=== PATIENT | male | born 1935 | race Caucasian/White ===

== ENCOUNTER → 2016-07-31 | Outpatient (CLI) | payer MEDICARE ==
[~2016-07-31] MED LIST: ACET325T PO; AMIO200T PO; ASPI1TAB69 PO; ASPI81TA11 PO; ATOR10TA PO; ATOR10TA15 PO; CARV25TA PO; CEPH-460 PO; CO Q100C9 PO; COUM3TAB PO; COUM4TAB PO; DIOV40TA PO; DOCU1CAP39 PO; FISH100020 PO; FURO1TAB60 PO; FURO1TAB93 PO; FURO40TA PO; LISI-366 PO; MECL-62 PO; MECL1TAB42 PO; MULT1TAB PO; WARF-20 PO; WARF3TAB PO
[2016-07-31 15:20] LABS: INTERNATIONAL NORMALIZED RATIO 2.6 RATIO
== END ==
LOC: CLAB 14:50
DX: I48.91 Unspecified atrial fibrillation (principal)
CPT/HCPCS: 36415; 85610

== ENCOUNTER → 2016-08-30 | Outpatient (CLI) | payer MEDICARE ==
[2016-08-30 10:07] LABS: INTERNATIONAL NORMALIZED RATIO 2.4 RATIO; PROTHROMBIN TIME - PATIENT 27.9 SEC (9.8-11.6)
== END ==
LOC: CLAB 09:38
DX: I48.91 Unspecified atrial fibrillation (principal)
CPT/HCPCS: 36415; 85610

== ENCOUNTER → 2016-09-22 | Outpatient (CLI) | payer MEDICARE ==
[2016-09-22 13:16] LABS: INTERNATIONAL NORMALIZED RATIO 2.7 RATIO; PROTHROMBIN TIME - PATIENT 31.2 SEC (9.8-11.6)
== END ==
LOC: CLAB 12:41
DX: I48.91 Unspecified atrial fibrillation (principal)
CPT/HCPCS: 36415; 85610

== ENCOUNTER → 2016-10-17 | Outpatient (CLI) | payer MEDICARE ==
[2016-10-17 15:45] LABS: INTERNATIONAL NORMALIZED RATIO 2.5 RATIO; PROTHROMBIN TIME - PATIENT 28.3 SEC (9.8-11.6)
== END ==
LOC: CLAB 15:00
DX: I48.91 Unspecified atrial fibrillation (principal)
CPT/HCPCS: 36415; 85610

== ENCOUNTER 2016-11-08 09:10 | Inpatient (IN) | payer MEDICARE ==
[2016-11-08] VITALS (17 sets, daily range): BP systolic 65–122; BP diastolic 47–74; PULSE 40–162; RESP 12–21; TEMP 96.4–98.1; O2SAT 19–100
[~2016-11-08 09:10] MED LIST changes: -ACET325T PO; -AMIO200T PO; -ASPI1TAB69 PO; -ATOR10TA15 PO; -CEPH-460 PO; -COUM3TAB PO; -COUM4TAB PO; -DIOV40TA PO; -DOCU1CAP39 PO; -FURO1TAB60 PO; -FURO40TA PO; -MECL-62 PO; -MECL1TAB42 PO
--- NOTE | 2016-11-08 09:39 | PD ---
HPI Chief Complaint: Cardiac Complaint Time Seen by Provider: 09:31 Travel History International Travel<30 days: No Contact w/Intl Traveler<30days: No Traveled to known affect area: No History of Present Illness HPI 81-year-old male with history of atrial fibrillation, has a pacemaker with securities dealer in [place], follows up with Dr. Lima locally, presents to the ER today because of chest pressure and shortness of breath, nausea, abdominal bloating, going on for several days. He states that it had gone away earlier and has come back today. He denies any fevers, vomiting, or other symptoms. Modifying Factors: None Associated Signs & Symptoms: Chest discomfort, nausea, abdominal bloating, shortness of breath intermittently Risk Factors: A. fib, pacemaker PFSH Past Medical History Cancer: No Cardiovascular Problems: Yes (ATRIAL FIBRILLATION, ENLARGED LEFT VENTRICLE, VALVE PROLAPSE) Diabetes: No Endocrine: No Genitourinary: No Hepatitis: No Hiatal Hernia: No Immune Disorder: No Musculoskeletal: No Neurologic: No Psychiatric: No Reproductive: No Respiratory: No Thyroid Disease: No Past Surgical History AICD: No Body Medical Devices: NONE Genitourinary Surgery: Yes (VASECTOMY) Joint Replacement: No Oral Surgery: Yes (TONSILLECTOMY) Pacemaker: Yes Social History Tobacco Use: No Allergies-Medications (Allergen,Severity, Reaction): Coded Allergies: No Known Allergies (Unverified , 11/08/16) Reported Meds & Prescriptions Reported Meds & Active Scripts Active Reported Atorvastatin (Atorvastatin Calcium) 10 Mg Tab 10 Mg PO HS Furosemide 40 Mg Tab 40 Mg PO BID Meclizine 25 (Meclizine HCl) 25 Mg Tab 25 Mg PO TID Carvedilol 25 Mg Tab 25 Mg PO BID Coumadin (Warfarin) 4 Mg Tab 4 Mg PO ELIANA Coumadin (Warfarin) 3 Mg Tab 3 Mg PO SUNDAY Review of Systems Except as stated in HPI: all other systems reviewed are Neg Physical Exam Narrative GENERAL: Well-developed elderly white male who appears in moderate distress, pale appearing, diaphoretic. Awake and oriented 3. SKIN: Focused skin assessment warm/dry. HEAD: Atraumatic. Normocephalic. EYES: Pupils equal and round. No scleral icterus. No injection or drainage. ENT: No nasal bleeding or discharge. Mucous membranes pink and moist. NECK: Trachea midline. No JVD. CARDIOVASCULAR: Fast and regular rhythm. No murmur appreciated. Pulses are present and equal bilaterally. RESPIRATORY: No accessory muscle use. Clear to auscultation. Breath sounds equal bilaterally. GASTROINTESTINAL: Abdomen soft, non-tender, nondistended. Hepatic and splenic margins not palpable. MUSCULOSKELETAL: No obvious deformities. No clubbing. No cyanosis. No edema. NEUROLOGICAL: Awake and alert. No obvious cranial nerve deficits. Motor grossly within normal limits. Normal speech. PSYCHIATRIC: Appropriate mood and affect; insight and judgment normal. Data Data Last Documented VS Vital Signs Date Time Temp Pulse Resp B/P Pulse Ox O2 Delivery O2 Flow Rate FiO2 11/08/16 11:02 47 18 90/50 100 Nasal Cannula 2 11/08/16 09:35 98.1 Orders Electrocardiogram (11/08/16:31) Basic Metabolic Panel (Bmp) (11/08/16:31) Ckmb (Isoenzyme) Profile (11/08/16:31) Complete Blood Count With Diff (11/08/16:) Magnesium (Mg) (11/08/16:31) Prothrombin Time / Inr (Pt) (11/08/16:31) Act Partial Throm Time (Ptt) (11/08/16:31) Troponin I (11/08/16:31) Chest, Single Ap (11/08/16:31) Ecg Monitoring (11/08/16:31) Bilateral Bp Monitoring (11/08/16:31) Iv Access Insert/Monitor (11/08/16:) Oximetry (11/08/16:31) Oxygen Administration (11/08/16:31) Sodium Chloride 0.9% Flush (Ns Flush) (11/08/16 09:45) Sodium Chlorid 0.9% 500 Ml Inj (Ns 500 M (11/08/16 09:45) CKMB (11/08/16:30) CKMB% (11/08/16:30) Admit Order (Ed Use Only) (11/08/16 11:00) Labs Laboratory Tests Test 11/08/16 09:30 White Blood Count 16.4 TH/MM3 Red Blood Count 5.91 MIL/MM3 Hemoglobin 16.7 GM/DL Hematocrit 49.9 % Mean Corpuscular Volume 84.4 FL Mean Corpuscular Hemoglobin 28.3 PG Mean Corpuscular Hemoglobin 33.5 % Concent Red Cell Distribution Width 14.6 % Platelet Count 199 TH/MM3 Mean Platelet Volume 9.7 FL Neutrophils (%) (Auto) 77.3 % Lymphocytes (%) (Auto) 14.9 % Monocytes (%) (Auto) 6.8 % Eosinophils (%) (Auto) 0.4 % Basophils (%) (Auto) 0.6 % Neutrophils # (Auto) 12.7 TH/MM3 Lymphocytes # (Auto) 2.4 TH/MM3 Monocytes # (Auto) 1.1 TH/MM3 Eosinophils # (Auto) 0.1 TH/MM3 Basophils # (Auto) 0.1 TH/MM3 CBC Comment DIFF FINAL Differential Comment Prothrombin Time 56.7 SEC Prothromb Time International 4.8 RATIO Ratio Activated Partial 38.5 SEC Thromboplast Time Sodium Level 132 MEQ/L Potassium Level 4.5 MEQ/L Chloride Level 93 MEQ/L Carbon Dioxide Level 25.2 MEQ/L Anion Gap 14 MEQ/L Blood Urea Nitrogen 46 MG/DL Creatinine 3.67 MG/DL Estimat Glomerular Filtration 16 ML/MIN Rate Random Glucose 228 MG/DL Calcium Level 9.0 MG/DL Magnesium Level 2.7 MG/DL Total Creatine Kinase 115 U/L Creatine Kinase MB 4.9 NG/ML Troponin I 1.71 NG/ML MDM Medical Decision Making Medical Screen Exam Complete: Yes Emergency Medical Condition: Yes Medical Record Reviewed: Yes Interpretation(s) Initial EKG shows atrial flutter with rapid ventricular response at a rate of 160 bpm. Repeat EKG shows paced ventricular rhythm at a rate of 40 bpm with occasional PAC. Differential Diagnosis Chest pains, shortness of breath, dysrhythmiarule out metabolic issues, rule out pacemaker dysfunction, rule out CHF, rule out ACS Narrative Course While os talking to the patient, he suddenly converted to a ventricular rhythm at a rate of 43 bpm. At this point, his blood pressure was 93/45. At this point, pacemaker rep was called to evaluate the patient. Lab work sent. Pacemaker rep was called to see the patient and after interrogating the pacemaker, they found that the patient may be in V. tach. In addition, his pacemaker is set at 40 bpm. The paced rhythm was up to 45 bpm. After the patient had converted his heart rhythm, he is feeling improved. His blood pressure is mildly low and IV fluids 5 cc had been put in for the patient. At this point, pacemaker rep has discussed the case with Dr. Banda who is salesperson corsets for electrophysiology. I have also discussed the case with Dr. Lima who knows the patient, states that he will follow the patient. He has also been notified of patient's worsening renal status and elevated troponin as well. He states that at this point he would not give any additional treatment until further evaluated by his colleagues in cardiology. Case was discussed with [facility] resident service who agrees that the patient will need ICU admission and will be consult thing critical care as well. Aggregate critical care time was 30 minutes. Time to perform other separately billable procedures was not included in the critical care time. My time did not include minutes spent treating any other patients simultaneously or on activities that did not directly contribute to the patient's treatment. The services I provided to this patient were to treat and/or prevent clinically significant deterioration that could result in: Worsening dysrhythmias, cardiopulmonary arrest, I provided critical care services requiring my management, as noted below: Chart data review, documentation time, medication orders and management, vital sign assessments/reviewing monitor data, ordering and reviewing lab tests, ordering and interpreting/reviewing x-rays and diagnostic studies, care of the patient and discussion of the patient with the admitting physicians. Diagnosis Primary Impression: Cardiac dysrhythmia Admitting Information Admitting Physician Requests: it Marcos Blackwood MD November 08, 2016 09:39
[2016-11-08 09:43] LABS: AUTOMATED NEUTROPHIL # 12.7 TH/MM3 (1.8-7.7); BASOPHIL # 0.1 TH/MM3 (0-0.2); BASOPHIL % 0.6 % (0.0-2.0); EOSINOPHIL # 0.1 TH/MM3 (0-0.4); EOSINOPHIL % 0.4 % (0.0-4.0); HEMATOCRIT 49.9 % (39.0-51.0); HEMO FLAGS DIFF FINAL; LYMPH % 14.9 % (9.0-44.0); LYMPHOCYTE # 2.4 TH/MM3 (1.0-4.8); MEAN CELL VOLUME 84.4 FL (80.0-100.0); MEAN CORPUSCULAR HEMOGLOBIN 28.3 PG (27.0-34.0); MEAN CORPUSCULAR HGB CONC 33.5 % (32.0-36.0); MONO % 6.8 % (0.0-8.0); NEUT % 77.3 % (16.0-70.0); PLATELET COUNT 199 TH/MM3 (150-450); RED BLOOD COUNT 5.91 MIL/MM3 (4.50-5.90); RED CELL DISTRIBUTION WIDTH 14.6 % (11.6-17.2); WHITE BLOOD COUNT 16.4 TH/MM3 (4.0-11.0)
[2016-11-08] MEDS ORDERED: SODIUM CHLORIDE 0.9% FLUSH 10 ML FLUSH IVF PRN (09:45)
[2016-11-08] MEDS ORDERED: SODIUM CHLORID 0.9% 500 ML INJ 500 ML IV ONE (09:45)
[2016-11-08 09:52] LABS: APTT (PATIENT) 38.5 SEC (24.3-30.1); INTERNATIONAL NORMALIZED RATIO 4.8 RATIO; PROTHROMBIN TIME - PATIENT 56.7 SEC (9.8-11.6)
--- NOTE | 2016-11-08 09:52 | RADRPT ---
EXAM DATE/TIME: 11/08/2016 09:33 [facility] COMPARISON: No previous studies available for comparison. INDICATIONS : Chest pain and low blood pressure. MEDICAL HISTORY : Unobtainable. SURGICAL HISTORY : Unobtainable. ENCOUNTER: Initial ACUITY: 1 day PAIN SCORE: 4/10 LOCATION: Bilateral chest FINDINGS: A single view of the chest demonstrates the lungs to be symmetrically aerated without evidence of mas s, infiltrate or effusion. Small nodule right lower lobe. Heart enlarged. Left-sided pacemaker with 2 intact leads. The cardiomediastinal contours are unremarkable. Osseous structures are intact. CONCLUSION: 1. Small nodule projects over the right lower lobe. Nonemergent CT chest recommended. 2. Cardiomegaly and left-sided pacemaker. Brandon Martinez MD on November 08, 2016 at 9:49 Board Certified Radiologist. This report was verified electronically.
[2016-11-08] MEDS ORDERED: COUM4TAB PO (10:01)
[2016-11-08] MEDS ORDERED: ATOR10TA15 PO (10:01)
[2016-11-08] MEDS ORDERED: MECL1TAB42 PO (10:01)
[2016-11-08] MEDS ORDERED: FURO40TA PO (10:01)
[2016-11-08] MEDS ORDERED: COUM3TAB PO (10:01)
[2016-11-08] MEDS ORDERED: CARV25TA PO (10:01)
[2016-11-08 10:23] LABS: ANION GAP 14 MEQ/L (5-15); BICARBONATE 25.2 MEQ/L (21.0-32.0); BLOOD UREA NITROGEN 46 MG/DL (7-18); CHLORIDE 93 MEQ/L (98-107); CREATINE KINASE 115 U/L (39-308); GLOMERULAR FILTRATION RATE 16 ML/MIN (>89); MAGNESIUM 2.7 MG/DL (1.5-2.5); POTASSIUM 4.5 MEQ/L (3.5-5.1); SODIUM (NA) 132 MEQ/L (136-145)
[2016-11-08 10:37] LABS: CKMB 4.9 NG/ML (0.5-3.6)
--- NOTE | 2016-11-08 11:10 | HHI.HP ---
HPI Service Family Medicine Primary Care Physician Non-Staff Admission Diagnosis dysrhythmia/acute renal failure/elevated troponin Diagnoses: International Travel<30 Days: No Contact w/Intl Traveler<30days: No Known Affected Area: No History of Present Illness 81-year-old male patient with history of atrial fibrillation and congestive heart failure, originally from [place], presents with a 2 day history of chest , upper epigastric "tightness." He states it all started 2 days ago. He thinks at the time he may have had food poisoning, but he can't think of anything which caused it. At the time, he had multiple episodes of diarrhea 8 , nonbloody. Diffuse, persistent sweaty episodes "like crazy". His shirt would be soaked with sweat, but he sheets at night are not soaked. He denied any vomiting episodes, but dry heaved. He normally is able to walk miles and sleep flat. But the last 2 nights he has had to sleep upright in a chair. He is taking his water pill, but he has not made urine frequently. The last time he urinated was this morning at 3 AM. His chest, upper epigastric "tightness", this started 2 days ago. It is right below the ribs and describes it as "bloating." It is discomforting but not painful. Discomforting 6 out of 10. It is constant and does not really go away. But he also is "not sure how to answer that question." He denies fevers at home. Denies cough. No sick contacts. [place] as though he was given a faint over the last 2 nights. But no syncope. Review of Systems Constitutional: COMPLAINS OF: Fatigue, Night Sweats, DENIES: Fever, Weight loss, Chills Eyes: DENIES: Blurred vision, Diplopia Respiratory: COMPLAINS OF: Shortness of breath, DENIES: Cough, Sputum production Cardiovascular: COMPLAINS OF: Chest pain (tightness below chest. bloating feeling. no radiation. ) Gastrointestinal: COMPLAINS OF: Abdominal pain (epigastric pain mentioned in hpi), Diarrhea (per hpi), DENIES: Bloody stools, Constipation, Nausea, Vomiting Musculoskeletal: DENIES: Joint pain, Muscle aches Neurologic: DENIES: Abnormal gait (tired), Headache Psychiatric: DENIES: Anxiety, Confusion Past Family Social History Past Medical History A fib CHF HLD Past Surgical History Hernia bilaterally Left knee Pacemaker 2 years ago Reported Medications Reported Meds & Active Scripts Active Reported Atorvastatin (Atorvastatin Calcium) 10 Mg Tab 10 Mg PO HS Furosemide 40 Mg Tab 40 Mg PO BID Meclizine 25 (Meclizine HCl) 25 Mg Tab 25 Mg PO TID Carvedilol 25 Mg Tab 25 Mg PO BID Coumadin (Warfarin) 4 Mg Tab 4 Mg PO PARVIZATSUN Coumadin (Warfarin) 3 Mg Tab 3 Mg PO SUNDAY Allergies: Coded Allergies: No Known Allergies (Unverified , 11/08/16) Active Ordered Medications Active Medications Sodium Chloride (NS 500 ml Inj) 500 ml @ 500 mls/hr BOLUS ONCE IV Last administered on 11/08/16t 09:47; Admin Dose 500 MLS/HR; Start 11/08/16 at 09:45 ; Stop 11/08/16 at 10:44; Status DC Sodium Chloride 2 ml 2 ml UNSCH PRN IVF; Start 11/08/16 at 09:45 Family History Mom: relatively healthy while alive Dad: Relatively healthy while alive Social History Never smoker Rarely alcohol No illicits From [place]; lives with and dog. Drives. In process of moving to [facility]. Independent of IADLs and ADLs. Physical Exam Vital Signs Vital Signs Date Time Temp Pulse Resp B/P Pulse Ox O2 Delivery O2 Flow Rate FiO2 11/08/16 11:02 47 18 90/50 100 Nasal Cannula 2 11/08/16 10:28 45 18 81/51 100 Nasal Cannula 2 11/08/16 10:02 44 18 89/52 100 Nasal Cannula 2 11/08/16 09:43 40 18 76/52 100 Nasal Cannula 2 11/08/16 09:39 52 18 95/50 100 Nasal Cannula 3 86/47 11/08/16 09:35 98.1 72 18 95/50 100 Nasal Cannula 2 11/08/16 09:35 100 Nasal Cannula 2 11/08/16 09:26 160 20 Room Air 11/08/16 09:12 96.4 162 12 65/48 Physical Exam O. CONSTITUTIONAL/GEN: Pleasant male sitting upright with nasal cannula. No acute distress EYES: conjunctiva normal, PERRLA, EOMI. ENT: Mouth and pharynx normal. NECK: thyroid midline, carotids symmetrical. LUNGS: clear A-P, respiratory effort is normal. CARDIOVASCULAR: RR without murmur or gallop. No significant edema. Very distant/nonpalpable DP, posterior tibial pulse. GI/ABD: soft without masses, without organomegaly. : no CVA tenderness NEURO: No focal deficits. Gait is normal SKIN: color normal, no rashes noted. HEME/LYMPH: no bruising, petechia or significant adenopathy MUSC: back is normal in appearance. Extremities are normal in appearance. PSYCH/MENTAL STATUS: Alert and oriented x 3. Answering questions appropriately. Normal insight and judgment. Laboratory Laboratory Tests Test 11/08/16 09:30 White Blood Count 16.4 Red Blood Count 5.91 Hemoglobin 16.7 Hematocrit 49.9 Mean Corpuscular Volume 84.4 Mean Corpuscular Hemoglobin 28.3 Mean Corpuscular Hemoglobin 33.5 Concent Red Cell Distribution Width 14.6 Platelet Count 199 Mean Platelet Volume 9.7 Neutrophils (%) (Auto) 77.3 Lymphocytes (%) (Auto) 14.9 Monocytes (%) (Auto) 6.8 Eosinophils (%) (Auto) 0.4 Basophils (%) (Auto) 0.6 Neutrophils # (Auto) 12.7 Lymphocytes # (Auto) 2.4 Monocytes # (Auto) 1.1 Eosinophils # (Auto) 0.1 Basophils # (Auto) 0.1 CBC Comment DIFF FINAL Differential Comment Prothrombin Time 56.7 Prothromb Time International 4.8 Ratio Activated Partial 38.5 Thromboplast Time Sodium Level 132 Potassium Level 4.5 Chloride Level 93 Carbon Dioxide Level 25.2 Anion Gap 14 Blood Urea Nitrogen 46 Creatinine 3.67 Estimat Glomerular Filtration 16 Rate Random Glucose 228 Calcium Level 9.0 Magnesium Level 2.7 Total Creatine Kinase 115 Creatine Kinase MB 4.9 Troponin I 1.71 Result Diagram: 11/08/1692911/08/16929 Imaging Last Impressions Chest X-Ray 11/08/16930 Signed Impressions: Service Date/Time: Tuesday, November 08, 2016 09:33 - CONCLUSION: 1. Small nodule projects over the right lower lobe. Nonemergent CT chest recommended. 2. Cardiomegaly and left-sided pacemaker. Brandon Martinez MD Assessment and Plan Assessment and Plan 81-year-old male with history of atrial fibrillation, pacemaker placement, congestive heart failure presents with chest/epigastric tightness ongoing for 2 days. Labs indicate elevated troponin. Systolic blood pressure concerning for cardiogenic shock. Initially presented with A flutter, cardioverted without intervention to paced rhythm at 40 bpm. Pacemaker rep evaluated pacemaker and, according to ED, discussed case with Dr. Noel. The ED spoke with the patient' s caul fat puller, Dr. Lima, because of elevated troponin. Patient will be admitted to [facility] with critical care consult, cardiology/ electrophysiology consult, nephrology consult Code Status Full Patient does have advanced directives in [place] Discussed Condition With Dr. Jaison Nino ED discussed case with cardiology, Dr. Lima Problem List: (1) Chest tightness or pressure Status: Acute Plan: Patient describes epigastric tightness. Concern for AAA versus SC versus other Abdominal ultrasound ordered stat Plan for troponin elevation as below (2) Elevated troponin Status: Acute Plan: Cardiology consulted, known to Dr. Lima. Troponin elevated to 1.71 Trend troponin at 1300 and 1900 Supratherapeutic INR of 4.8 (3) Cardiogenic shock Status: Acute Plan: Concern for cardiogenic shock with systolic blood pressure ranging from 65/48- 90/50 Critical care consulted, case discussed with Dr. Nino Management per critical care (4) LILLI (acute kidney injury) Status: Acute Plan: Nephrology consulted Likely from cardiogenic shock as above Expect improvement with pressure support and blood pressure management (5) Atrial fibrillation Status: Acute Plan: History of atrial fibrillation, presented with Atrial Flutter on admission Cardioverted to paced 40 bpm without any intervention Normally patient has a paced rhythm of 40-45 bpm. Electrophysiology consult (Dr. Noel) Telemetry Holding Coumadin as below (6) Supratherapeutic INR Status: Acute Plan: INR 4.8 Holding Coumadin (7) FEN/PPX Status: Acute Plan: Fluids: Careful with IV fluids given concern for cardiac shock, although patient may benefit from light fluids. Defer to critical care Electrolytes: Monitor and replace when necessary Nutrition: Nothing by mouth except meds for possible procedure, if no procedure , heart healthy diet Prophylaxis: Supratherapeutic INR currently. Bilateral SCDs Physician Certification 2 Midnight Certification Type: Admission for Inpatient Services Order for Inpatient Services The services are ordered in accordance with Medicare regulations or non- Medicare payer requirements, as applicable. In the case of services not specified as inpatient-only, they are appropriately provided as inpatient services in accordance with the 2-midnight benchmark. Estimated LOS (days): 3 days is the estimated time the patient will need to remain in the hospital, assuming treatment plan goals are met and no additional complications. Post-Hospital Plan: Not yet determined Murtaza Peralta MD R2 November 08, 2016 11:10
[2016-11-08] MEDS ORDERED: MAGNESIUM HYDROXIDE SUSP 30 ML CUP PO PRN ×2 (12:00→13:00)
[2016-11-08] MEDS ORDERED: SODIUM CHLORIDE 0.9% FLUSH 10 ML FLUSH IV FLUSH PRN ×2 (12:00→13:00)
[2016-11-08] MEDS ORDERED: ACETAMINOPHEN 325 MG TAB PO PRN (12:00)
[2016-11-08] MEDS ORDERED: MORPHINE SULFATE 4 MG/ML INJ IV PRN (12:00)
[2016-11-08] MEDS ORDERED: MISCELLANEOUS NURSING INFORMATION XX SCH ×2 (12:00→13:00)
[2016-11-08] MEDS ORDERED: ONDANSETRON HCL 4 MG/2 ML VIAL IV PRN ×2 (12:00→13:00)
[2016-11-08] MEDS ORDERED: CHLORHEXIDINE GLUCONATE 2 % 1 PACK (2 CLOTHS) TOP PRN ×2 (12:00→13:00)
--- NOTE | 2016-11-08 12:28 | RADRPT ---
EXAM DATE/TIME: 11/08/2016 11:57 [facility] COMPARISON: No previous studies available for comparison. INDICATIONS : Abdominal pain. MEDICAL HISTORY : Afib. CHF. Hypertension. SURGICAL HISTORY : Tonsillectomy. Pacemaker. Hernia repair. ENCOUNTER: Initial ACUITY: 1 day PAIN SCORE: 0/10 LOCATION: Abdomen. MEASUREMENTS: (AP x TRANSVERSE) PROXIMAL: 2.1 x 2.5 cm cm MID: 1.4 x 2.0 cm cm DISTAL: 1.6 x 1.7 cm cm RIGHT ILIAC: 0.90 x 1.1 cm cm LEFT ILIAC: 1.1 x 1.3 cm cm FINDINGS: AORTA: No significant atherosclerotic disease. Doppler evaluation within normal limits. IVC: Within normal limits. CONCLUSION: Negative for abdominal aortic aneurysm. The left renal artery is not visualized. Oneil Wu MD FACR on November 08, 2016 at 12:25 Board Certified Radiologist. This report was verified electronically.
[2016-11-08 12:41] LABS: BLOOD GAS BASE EXCESS -2.4 mmol/L (-2-2); BLOOD GAS CARBOXYHEMOGLOBIN 0.8 % (0-4); BLOOD GAS HCO3 21 mmol/L (22-26); BLOOD GAS METHEMOGLOBIN 0.2 % (0-2); BLOOD GAS O2 HGB SATURATION 98 % (90-100); BLOOD GAS OXYGEN CONTENT 20.5 Vol % (12.0-20.0); BLOOD GAS PCO2 32 mmHg (38-42); BLOOD GAS PO2 115 mmHG (61-120); BLOOD GAS TOTAL HGB 14.9 G/DL (12.0-16.0); CRITICAL VALUE NO; LITER FLOW 2 L/M; OXYGEN DEVICE NASAL CANNULA; TEMP CORR TO 98.6
[2016-11-08 12:42] LABS: DRAW SITE RT RADIAL; NUMBER OF ARTERIAL PUNCTURES 1; STAT NO; ULNAR PULSE PRESENT
[2016-11-08] MEDS ORDERED: ASPI1TAB69 PO (12:43)
[2016-11-08 12:50] LABS: ANION GAP 18 MEQ/L (5-15); AST (GOT) 179 U/L (15-37); BICARBONATE 21.8 MEQ/L (21.0-32.0); BLOOD UREA NITROGEN 46 MG/DL (7-18); CHLORIDE 93 MEQ/L (98-107); GLOMERULAR FILTRATION RATE 16 ML/MIN (>89); POTASSIUM 4.6 MEQ/L (3.5-5.1); SODIUM (NA) 133 MEQ/L (136-145)
[2016-11-08 13:13] LABS: ALKALINE PHOSPHATASE 91 U/L (45-117); ALT (GPT) 222 U/L (12-78); TOTAL BILIRUBIN ADULT 1.4 MG/DL (0.2-1.0)
[2016-11-08 15:15] LABS: BACTERIA, URINE MOD /hpf; BLOOD, URINE NEG (NEG); COMMENT (UR) CULTURE INDICATED; CULTURE IF INDICATED CULTURE INDICATED; GLUCOSE,URINE NEG (NEG); HYALINE CAST, URINE 17 /lpf (RARE); KETONE, URINE NEG (NEG); NITRITE,URINE NEG (NEG); SQUAMOUS EPITHELIAL CELL URINE 1 /hpf (0-5); URINE COLOR YELLOW (YELLW/STRAW)
--- NOTE | 2016-11-08 17:00 | PD.CONS ---
HPI Service Nephrology Consult Requested By Dr. Peralta Reason for Consult LILLI Primary Care Physician Non-Staff History of Present Illness The patient is an 81 yo [place] male who presented to this facility 11/08/16 with complaints of 2 days of chest discomfort, diarrhea x8, decreased UOP, and diaphoresis. He is in the process of moving from [place] and thought initially related to stress of that, but when symptoms persisted, decided to come to ED for evaluation. He has a PMHx of persistent atrial fibrillation for which he had pacer placed, CHF (unsure of EF), and HTN. He is unaware of any previous renal issues (contacted his PCP Dr. Campbell in [place] who reported last SCr was 1.12 Nov 2015). Denies any NSAID use in the recent past. Despite feeling bad, continued to take home medications which include Lisinopril 5mg QD, Furosemide 40mg BID, Coreg 25mg BID, and Atorvastatin. On arrival, suspicion was for AAA so an emergent US was done that showed no dissection. CXR showed no vascular congestion. Was found that he was in atrial flutter with RVR with HR in 160s. At the present, says he is feeling much better. BP has improved (was systolically in the 60s at one point) to systolic of 100mmHg, and now HR in the 40s. Awaiting consultation with steelscope operator for pacer interrogation and likely adjustment. Admitting SCr of 3.64, eGFR 16, K 4.6, CO2 21, WBC 16.4, Hgb 16.7, elevated LFTs , elevated troponins but not trending, UA overall bland. BCx and UCx pending at the present. (Mindy Dobbs) Review of Systems Respiratory: COMPLAINS OF: Shortness of breath Cardiovascular: COMPLAINS OF: Chest pain, Orthopnea Gastrointestinal: COMPLAINS OF: Diarrhea Genitourinary: COMPLAINS OF: Urinary frequency (decreased in the past 2 days) ( Mindy Dobbs) Past Family Social History Allergies: Coded Allergies: No Known Allergies (Unverified , 11/08/16) Past Medical History CHF A fib Pacer placement HLD Past Surgical History Hernia repair Pacer placement L knee Tonsillectomy Vasectomy Reported Medications Reported Meds & Active Scripts Active Reported Aspirin 81 Mg Tabdr 81 Mg PO DAILY Lisinopril 5mg PO DAILY Atorvastatin (Atorvastatin Calcium) 10 Mg Tab 10 Mg PO HS Furosemide 40 Mg Tab 40 Mg PO BID Meclizine 25 (Meclizine HCl) 25 Mg Tab 25 Mg PO TID Carvedilol 25 Mg Tab 25 Mg PO BID Coumadin (Warfarin) 4 Mg Tab 4 Mg PO ELIANA Coumadin (Warfarin) 3 Mg Tab 3 Mg PO SUNDAY Active Ordered Medications Current Medications Medications (Trade) Dose Ordered Sig/Royce Route Start Time Stop Time Status Last Admin (Morphine Inj) 2 mg Q2H PRN IV 11/08/16 12:00 (Lipitor) 10 mg HS PO 11/08/16 21:00 (NS Flush) 2 ml UNSCH PRN IV FLUSH 11/08/16 13:00 (NS Flush) 2 ml BID IV FLUSH 11/08/16 21:00 (Tylenol) 650 mg Q6H PRN PO 11/08/16 13:00 (Protonix Inj) 40 mg DAILY IV 11/09/16 09:00 (Zofran Inj) 4 mg Q6H PRN IV 11/08/16 13:00 (Colace) 100 mg BID PO 11/08/16 21:00 (Milk Of Magnesia Liq) 30 ml Q12H PRN PO 11/08/16 13:00 Miscellaneous Information 1 Q361D XX 11/08/16 13:00 (Chlorhexidine 2% Cloth) 3 pack Taper DAILY@04 TOP 11/09/16 04:00 11/05/17 03:59 (Chlorhexidine 2% Cloth) 3 pack UNSCH PRN TOP 11/08/16 13:00 Family History [place] Social History and lives between [facility] Denies tobacco use Occasional EtOH Denies illicits (Mindy Dobbs) Physical Exam Vital Signs Vital Signs Date Time Temp Pulse Resp B/P Pulse Ox O2 Delivery O2 Flow Rate FiO2 11/08/16 16:38 45 17 101/64 98 Nasal Cannula 11/08/16 14:19 56 18 107/66 100 Nasal Cannula 2 11/08/16 13:33 45 18 107/62 100 Nasal Cannula 2 11/08/16 12:38 48 18 97/53 100 Nasal Cannula 2 11/08/16 11:56 45 18 97/58 100 Nasal Cannula 2 11/08/16 11:02 47 18 90/50 100 Nasal Cannula 2 11/08/16 10:28 45 18 81/51 100 Nasal Cannula 2 11/08/16 10:02 44 18 89/52 100 Nasal Cannula 2 11/08/16 09:43 40 18 76/52 100 Nasal Cannula 2 11/08/16 09:39 52 18 95/50 100 Nasal Cannula 3 86/47 11/08/16 09:35 98.1 72 18 95/50 100 Nasal Cannula 2 11/08/16 09:35 100 Nasal Cannula 2 11/08/16 09:26 160 20 Room Air 11/08/16 09:12 96.4 162 12 65/48 Physical Exam GENERAL: NAD. Sitting up in bed. SKIN: Warm and dry. HEAD: Atraumatic. Normocephalic. EYES: Pupils equal and round. No scleral icterus. No injection or drainage. ENT: No nasal bleeding or discharge. Mucous membranes pink and moist. NECK: Trachea midline. No JVD. CARDIOVASCULAR: Regular rhythm, bradycardic RESPIRATORY: No accessory muscle use. Clear to auscultation. Breath sounds equal bilaterally. GASTROINTESTINAL: Abdomen soft, non-tender, nondistended. Hepatic and splenic margins not palpable. MUSCULOSKELETAL: Extremities without clubbing, cyanosis, or edema. No obvious deformities. NEUROLOGICAL: Awake and alert. Normal speech. PSYCHIATRIC: Appropriate mood and affect; insight and judgment normal. Laboratory Laboratory Tests Test 11/08/16 11/08/16 11/08/16 11/08/16 09:30 12:30 12:40 14:30 White Blood Count 16.4 Red Blood Count 5.91 Hemoglobin 16.7 Hematocrit 49.9 Mean Corpuscular Volume 84.4 Mean Corpuscular Hemoglobin 28.3 Mean Corpuscular Hemoglobin 33.5 Concent Red Cell Distribution Width 14.6 Platelet Count 199 Mean Platelet Volume 9.7 Neutrophils (%) (Auto) 77.3 Lymphocytes (%) (Auto) 14.9 Monocytes (%) (Auto) 6.8 Eosinophils (%) (Auto) 0.4 Basophils (%) (Auto) 0.6 Neutrophils # (Auto) 12.7 Lymphocytes # (Auto) 2.4 Monocytes # (Auto) 1.1 Eosinophils # (Auto) 0.1 Basophils # (Auto) 0.1 CBC Comment DIFF FINAL Differential Comment Prothrombin Time 56.7 Prothromb Time International 4.8 Ratio Activated Partial 38.5 Thromboplast Time Sodium Level 133 Potassium Level 4.6 Chloride Level 93 Carbon Dioxide Level 21.8 Anion Gap 18 Blood Urea Nitrogen 46 Creatinine 3.64 Estimat Glomerular Filtration 16 Rate Random Glucose 229 Calcium Level 9.1 Magnesium Level 2.7 Total Bilirubin 1.4 Aspartate Amino Transf 179 (AST/SGOT) Alanine Aminotransferase 222 (ALT/SGPT) Alkaline Phosphatase 91 Total Creatine Kinase 115 Creatine Kinase MB 4.9 Troponin I 1.71 1.65 B-Type Natriuretic Peptide 697 Total Protein 7.2 Albumin 3.8 Blood Gas Puncture Site RT RADIAL Blood Gas Patient Temperature 98.6 Blood Gas HCO3 21 Blood Gas Base Excess -2.4 Blood Gas Oxygen Saturation 98 Arterial Blood pH 7.44 Arterial Blood Partial 32 Pressure CO2 Arterial Blood Partial 115 Pressure O2 Arterial Blood Oxygen Content 20.5 Arterial Blood 0.8 Carboxyhemoglobin Arterial Blood Methemoglobin 0.2 Blood Gas Hemoglobin 14.9 Oxygen Delivery Device NASAL CANNULA Blood Gas Liter Flow 2 Lactic Acid Level 2.1 Lipase 146 Urine Color YELLOW Urine Turbidity HAZY Urine pH 5.0 Urine Specific [place] 1.015 Urine Protein 30 Urine Glucose (UA) NEG Urine Ketones NEG Urine Occult Blood NEG Urine Nitrite NEG Urine Bilirubin NEG Urine Urobilinogen LESS THAN 2.0 Urine Leukocyte Esterase NEG Urine RBC LESS THAN 1 Urine WBC 4 Urine Squamous Epithelial 1 Cells Urine Bacteria MOD Urine Hyaline Casts 17 Microscopic Urinalysis Comment CULTURE INDICATED Date/Time Procedure Status Source Growth 11/08/16 14:30 Urine Culture Received Urine Clean Catch Pending 11/08/16 12:40 Aerobic Blood Culture Received Blood Peripheral Pending 11/08/16 12:40 Anaerobic Blood Culture Received Blood Peripheral Pending (Mindy Dobbs) Result Diagram: 11/08/1630 11/08/16929 Imaging Last Impressions Chest X-Ray 11/08/1631 Signed Impressions: Service Date/Time: Tuesday, November 08, 2016 09:33 - CONCLUSION: 1. Small nodule projects over the right lower lobe. Nonemergent CT chest recommended. 2. Cardiomegaly and left-sided pacemaker. Brandon Martinez MD Aorta Ultrasound 11/08/16 0000 Signed Impressions: Service Date/Time: Tuesday, November 08, 2016 11:57 - CONCLUSION: Negative for abdominal aortic aneurysm. The left renal artery is not visualized. Oneil Wu MD FACR (Mindy Dobbs) Assessment and Plan Problem List: (1) LILLI (acute kidney injury) Plan: Appears LILLI related to hypoperfusion of kidneys related to cardiac dysrhythmia and hypotension. Lasix and antihypertensives have been held. Awaiting consult with steelscope operator for interrogation and adjustment of pacer as he is now bradycardic. Received bolus of 500mL of NS. Does not appear overtly dry on exam. Will hold off on starting IVF until evaluated by cardiology. Has hx of CHF with uncertain EF. Will follow with labs in the AM. Medications should be adjusted for the patient's renal decline. Avoid nephrotoxic medications including NSAIDs and iodinated contrast dyes. Avoid gadolinium when eGFR <30. (2) Atrial fibrillation Plan: Awaiting consult from cardiology (3) Transaminitis Plan: Lipitor been held. Repeat LFTs in the AM. (4) CHF (congestive heart failure) Plan: Clinically compensated. No edema on exam and no vacular congestion on CXR. Monitor. Consider gentle hydration. (5) Pulmonary nodule Plan: As detected on CXR. Recommended non-emergent CT follow up which can likely occur as outpatient. (Mindy Dobbs) Assessment and Plan The exam, history, and the medical decision-making described in the above note were completed with the assistance of the PA-C. I reviewed and agree with the findings presented. I attest that I had a [id number] encounter with the patient on the same day, and personally performed and documented my assessment and findings in the medical record. (Ayan Brink MD) Mindy Dobbs November 08, 2016 17:00 Ayan Brink MD November 08, 2016 18:41
--- NOTE | 2016-11-08 17:58 | HHI.HP ---
[facility] Service Critical Care Medicine Primary Care Physician Non-Staff Admission Diagnosis dysrhythmia/acute renal failure/elevated troponin Diagnosis: Travel History International Travel<30 Days: No Contact w/Intl Traveler <30 Da: No Traveled to Known Affected Are: No History of Present Illness 81-year-old male patient with history of atrial fibrillation and CHF, originally from [place], presented with a 2 day history of chest, upper epigastric "tightness." He states it all started 2 days ago. He thinks at the time he may have had food poisoning, but he can't think of anything which caused it. At the time, he had multiple episodes of diarrhea 8, nonbloody. Diffuse, persistent sweaty episodes "like crazy". His shirt would be soaked with sweat, but he sheets at night are not soaked. He denied any vomiting episodes, but dry heaved. He normally is able to walk miles and sleep flat. But the last 2 nights he has had to sleep upright in a chair. He is taking his water pill, but he has not made urine frequently. The last time he urinated was this morning at 3 AM. His chest, upper epigastric "tightness", this started 2 days ago. It is right below the ribs and describes it as "bloating." It is discomforting but not painful. Discomforting 6 out of 10. It is constant and does not really go away. But he also is "not sure how to answer that question." He denies fevers at home. Denies cough. No sick contacts. Boyd as though he was given a faint over the last 2 nights. In the ED, Dr. Lima was consult to cardiology. In discussion with cardiology per Dr. Dhillon, the patient has episodes and runs of V. tach, so the episodes earlier today were not new. Nephrology was consulted and a formal consult was placed for Dr. Noel. The patient's pacemaker was set at 40 was interrogated, [employer] in the ED. The reports were provided to Dr. Noel to determine if interventions were needed. Upon entering the ED the patient's blood pressure was 109/55. Critical care medicine was consult for management. ROS - General Review of Systems Constitutional: COMPLAINS OF: Fatigue, Night Sweats, DENIES: Fever, Weight loss, Chills Eyes: DENIES: Blurred vision, Diplopia Respiratory: COMPLAINS OF: Shortness of breath, DENIES: Cough, Sputum production Cardiovascular: COMPLAINS OF: Chest pain (tightness below chest. bloating feeling. no radiation. ) Gastrointestinal: COMPLAINS OF: Abdominal pain (epigastric pain mentioned in hpi), Diarrhea (per hpi), DENIES: Bloody stools, Constipation, Nausea, Vomiting Musculoskeletal: DENIES: Joint pain, Muscle aches Neurologic: DENIES: Abnormal gait (tired), Headache Psychiatric: DENIES: Anxiety, Confusion PFSH Past Family Social History Past Medical History A fib CHF HLD Past Surgical History Hernia bilaterally Left knee Pacemaker 2 years ago Reported Medications Reported Meds & Active Scripts Active Reported Atorvastatin (Atorvastatin Calcium) 10 Mg Tab 10 Mg PO HS Furosemide 40 Mg Tab 40 Mg PO BID Meclizine 25 (Meclizine HCl) 25 Mg Tab 25 Mg PO TID Carvedilol 25 Mg Tab 25 Mg PO BID Coumadin (Warfarin) 4 Mg Tab 4 Mg PO [facility] Coumadin (Warfarin) 3 Mg Tab 3 Mg PO SUNDAY Allergies: Coded Allergies: No Known Allergies (Unverified , 11/08/16) Active Ordered Medications Active Medications Sodium Chloride (NS 500 ml Inj) 500 ml @ 500 mls/hr BOLUS ONCE IV Last administered on 11/08/16t 09:47; Admin Dose 500 MLS/HR; Start 11/08/16 at 09:45 ; Stop 11/08/16 at 10:44; Status DC Sodium Chloride 2 ml 2 ml UNSCH PRN IVF; Start 11/08/16 at 09:45 Family History Mom: relatively healthy while alive Dad: Relatively healthy while alive Social History Never smoker Rarely alcohol No illicits From [place]; lives with and dog. Drives. In process of moving to [facility]. Independent of IADLs and ADLs. Physical Exam Vital Signs Vital Signs Date Time Temp Pulse Resp B/P Pulse Ox O2 Delivery O2 Flow Rate FiO2 11/08/16 16:38 45 17 101/64 98 Nasal Cannula 11/08/16 14:19 56 18 107/66 100 Nasal Cannula 2 11/08/16 13:33 45 18 107/62 100 Nasal Cannula 2 11/08/16 12:38 48 18 97/53 100 Nasal Cannula 2 11/08/16 11:56 45 18 97/58 100 Nasal Cannula 2 11/08/16 11:02 47 18 90/50 100 Nasal Cannula 2 11/08/16 10:28 45 18 81/51 100 Nasal Cannula 2 11/08/16 10:02 44 18 89/52 100 Nasal Cannula 2 11/08/16 09:43 40 18 76/52 100 Nasal Cannula 2 11/08/16 09:39 52 18 95/50 100 Nasal Cannula 3 86/47 11/08/16 09:35 98.1 72 18 95/50 100 Nasal Cannula 2 11/08/16 09:35 100 Nasal Cannula 2 11/08/16 09:26 160 20 Room Air 11/08/16 09:12 96.4 162 12 65/48 Laboratory Laboratory Tests Test 11/08/16 11/08/16 11/08/16 11/08/16 09:30 12:30 12:40 14:30 White Blood Count 16.4 Red Blood Count 5.91 Hemoglobin 16.7 Hematocrit 49.9 Mean Corpuscular Volume 84.4 Mean Corpuscular Hemoglobin 28.3 Mean Corpuscular Hemoglobin 33.5 Concent Red Cell Distribution Width 14.6 Platelet Count 199 Mean Platelet Volume 9.7 Neutrophils (%) (Auto) 77.3 Lymphocytes (%) (Auto) 14.9 Monocytes (%) (Auto) 6.8 Eosinophils (%) (Auto) 0.4 Basophils (%) (Auto) 0.6 Neutrophils # (Auto) 12.7 Lymphocytes # (Auto) 2.4 Monocytes # (Auto) 1.1 Eosinophils # (Auto) 0.1 Basophils # (Auto) 0.1 CBC Comment DIFF FINAL Differential Comment Prothrombin Time 56.7 Prothromb Time International 4.8 Ratio Activated Partial 38.5 Thromboplast Time Sodium Level 133 Potassium Level 4.6 Chloride Level 93 Carbon Dioxide Level 21.8 Anion Gap 18 Blood Urea Nitrogen 46 Creatinine 3.64 Estimat Glomerular Filtration 16 Rate Random Glucose 229 Calcium Level 9.1 Magnesium Level 2.7 Total Bilirubin 1.4 Aspartate Amino Transf 179 (AST/SGOT) Alanine Aminotransferase 222 (ALT/SGPT) Alkaline Phosphatase 91 Total Creatine Kinase 115 Creatine Kinase MB 4.9 Troponin I 1.71 1.65 B-Type Natriuretic Peptide 697 Total Protein 7.2 Albumin 3.8 Blood Gas Puncture Site RT RADIAL Blood Gas Patient Temperature 98.6 Blood Gas HCO3 21 Blood Gas Base Excess -2.4 Blood Gas Oxygen Saturation 98 Arterial Blood pH 7.44 Arterial Blood Partial 32 Pressure CO2 Arterial Blood Partial 115 Pressure O2 Arterial Blood Oxygen Content 20.5 Arterial Blood 0.8 Carboxyhemoglobin Arterial Blood Methemoglobin 0.2 Blood Gas Hemoglobin 14.9 Oxygen Delivery Device NASAL CANNULA Blood Gas Liter Flow 2 Lactic Acid Level 2.1 Lipase 146 Urine Color YELLOW Urine Turbidity HAZY Urine pH 5.0 Urine Specific [place] 1.015 Urine Protein 30 Urine Glucose (UA) NEG Urine Ketones NEG Urine Occult Blood NEG Urine Nitrite NEG Urine Bilirubin NEG Urine Urobilinogen LESS THAN 2.0 Urine Leukocyte Esterase NEG Urine RBC LESS THAN 1 Urine WBC 4 Urine Squamous Epithelial 1 Cells Urine Bacteria MOD Urine Hyaline Casts 17 Microscopic Urinalysis Comment CULTURE INDICATED Date/Time Procedure Status Source Growth 11/08/16 14:30 Urine Culture Received Urine Clean Catch Pending 11/08/16 12:40 Aerobic Blood Culture Received Blood Peripheral Pending 11/08/16 12:40 Anaerobic Blood Culture Received Blood Peripheral Pending Result Diagram: 11/08/1692911/08/16929 Imaging Last Impressions Chest X-Ray 11/08/1631 Signed Impressions: Service Date/Time: Tuesday, November 08, 2016 09:33 - CONCLUSION: 1. Small nodule projects over the right lower lobe. Nonemergent CT chest recommended. 2. Cardiomegaly and left-sided pacemaker. Brandon Martinez MD Aorta Ultrasound 11/08/16 0000 Signed Impressions: Service Date/Time: Tuesday, November 08, 2016 11:57 - CONCLUSION: Negative for abdominal aortic aneurysm. The left renal artery is not visualized. Oneil Wu MD FACR Assessment and Plan Assessment and Plan ASSESSMENT Dysrhythmias -ventricular tachycardia, bradycardia LILLI Supratherapeutic INR History of CHF Hyperlipidemia Cardiogenic shock Elevated troponins Pacemaker-45 bpm (set rate) Leukocytosis PLAN Neuro Neurochecks per ICU protocol Tylenol 650 mg every 6 hours when necessary for pain Respiratory Patient currently on O2 at 2 L nasal cannula, O2 saturation 100% Will begin incentive spirometry in the a.m. Bronchodilators when necessary CV Cardiology consulted-Dr. Lima Cardiology EPS consulted- Dr. Noel for evaluation and possible interventions of current pacemaker Maintain MAP. greater than 65 mmHg. We'll consider vasopressors if needed, currently systolic blood pressure 109 Continue statin, ASA home med Hold Coumadin, monitor INR Troponin 1.71-continue to trend Obtain BNP GI NPO for now for possible cardiac interventions Protonix GI prophylaxis Zofran for nausea Bowel regimen Renal Nephrology consulted-follow up recommendations Creatinine 3.6, potassium 4.5 Insert Harry Strict I&O Monitor BMP Heme/ID WBC-16 Monitor CBC No active signs of bleeding continue to monitor Hold Coumadin Obtain blood, urine and cultures Tylenol for temp greater than 101.0 GI prophylaxis Protonix DVT prophylaxis none in the setting of supratherapeutic INR This patient remains critically ill with one or more organ systems which are or may become a threat to life. I have spent in excess of 35 minutes discontinuously in the care and management of this patient. This time is exclusive of procedures, and includes, but is not limited to, evaluation of the patient, review of the medical record, discussions with family, consultants, nursing staff, or respiratory therapy, and documentation in the medical record. Code Status Full Discussed Condition With Dr. Dhillon, Dr. Peralta and ED RN at bedside Melba Nino MD November 08, 2016 17:58
--- NOTE | 2016-11-08 18:01 | RADRPT ---
EXAM DATE/TIME: 11/08/2016 17:38 [facility] COMPARISON: No previous studies available for comparison. INDICATIONS : Increased BUN/creatinine. MEDICAL HISTORY : Congestive heart failure. Right cataract. Afib. Enlarged left ventricle. Valve prolapse. HTN. Dys pnea. Enlarged prostate. Abdominal pain. SURGICAL HISTORY : Tonsillectomy. Pacemaker. Hernia surgery x2. Vasectomy. Left knee arthroscopy. ENCOUNTER: Initial ACUITY: 1 day PAIN SCORE: 1/10 LOCATION: Bilateral flank MEASUREMENTS: RIGHT KIDNEY: 11.0 x 5.3 x 5.4 cm LEFT KIDNEY: 11.4 x 4.5 x 6.1 cm FINDINGS: RIGHT KIDNEY: Renal cortex is normal in thickness and echotexture. No hydronephrosis, stone, or mass. LEFT KIDNEY: There is a slightly less than 3 cm cyst involving the midpole cortex of the left kidney. There is no evidence of hydronephrosis or stone. BLADDER: Within normal limits given the degree of distension. CONCLUSION: Left renal cyst. No hydronephrosis. Goldy Palacios MD on November 08, 2016 at 17:58 Board Certified Radiologist. This report was verified electronically.
--- NOTE | 2016-11-08 19:10 | EKG ---
Date Performed: 11/08/2016 Time Performed: 09:29:43 PTAGE: 81 years EKG: ELECTRONIC VENTRICULAR PACEMAKER PVCS ABNORMAL RHYTHM ECG PREVIOUS TRACING : 11/08/2016 09.22 Compared to the previous tracing tachycardia no longer pres ent DOCTOR: Maribel Burton Interpretating Date/Time 11/08/2016 19:10:05
--- NOTE | 2016-11-08 19:16 | EKG ---
Date Performed: 11/08/2016 Time Performed: 09:22:16 PTAGE: 81 years EKG: ATRIAL FLUTTER/TACHYCARDIA WITH RAPID VENTRICULAR RESPONSE LEFT AXIS RIGHT BUNDLE BRANCH BL OCK LEFT VENTRICULAR HYPERTROPHY AND ST-T CHANGE INFERIOR MYOCARDIAL INFARCTION ABNORMAL ECG PREVIOUS TRACING : 10/07/2014 11.22 Compared to the previous tracing rate faster DOCTOR: Maribel Burton Interpretating Date/Time 11/08/2016 19:14:35
[2016-11-08] MEDS ORDERED: HEPARIN SODIUM - SQ 10,000 UNITS/ML VIAL SQ SCH (21:00)
[2016-11-08] MEDS ORDERED: SODIUM CHLORIDE 0.9% FLUSH 10 ML FLUSH IV FLUSH SCH (21:00)
[2016-11-08] MEDS: DOCUSATE SODIUM 100 MG CAP PO SCH (21:00)
[2016-11-08] MEDS: SODIUM CHLORIDE 0.9% FLUSH 10 ML FLUSH IV FLUSH SCH (21:43)
[2016-11-08] MEDS: ATORVASTATIN 10 MG TAB PO SCH (21:43)
[2016-11-09] VITALS (14 sets, daily range): BP systolic 114–153; BP diastolic 64–75; PULSE 44–60; RESP 19–23; TEMP 97.6–97.9; O2SAT 95–97
[2016-11-09] MEDS: SODIUM CHLOR 0.9% 1000 ML INJ 1,000 ML IV SCH ×2 (00:01→18:46)
[2016-11-09] MEDS: CHLORHEXIDINE GLUCONATE 2 % 1 PACK (2 CLOTHS) TOP SCH (04:00)
[2016-11-09] MEDS ORDERED: CHLORHEXIDINE GLUCONATE 2 % 1 PACK (2 CLOTHS) TOP SCH (04:00)
[2016-11-09 05:59] LABS: AUTOMATED NEUTROPHIL # 8.9 TH/MM3 (1.8-7.7); BASOPHIL % 0.4 % (0.0-2.0); EOSINOPHIL # 0.1 TH/MM3 (0-0.4); EOSINOPHIL % 0.9 % (0.0-4.0); HEMATOCRIT 40.7 % (39.0-51.0); HEMO FLAGS DIFF FINAL; LYMPH % 19.1 % (9.0-44.0); LYMPHOCYTE # 2.5 TH/MM3 (1.0-4.8); MEAN CELL VOLUME 83.6 FL (80.0-100.0); MEAN CORPUSCULAR HEMOGLOBIN 27.6 PG (27.0-34.0); NEUT % 69.6 % (16.0-70.0); PLATELET COUNT 148 TH/MM3 (150-450); RED BLOOD COUNT 4.87 MIL/MM3 (4.50-5.90); WHITE BLOOD COUNT 12.8 TH/MM3 (4.0-11.0)
[2016-11-09 06:34] LABS: INTERNATIONAL NORMALIZED RATIO 3.3 RATIO; PROTHROMBIN TIME - PATIENT 38.1 SEC (9.8-11.6)
[2016-11-09 06:36] LABS: ALKALINE PHOSPHATASE 71 U/L (45-117); ALT (GPT) 227 U/L (12-78); ANION GAP 11 MEQ/L (5-15); AST (GOT) 163 U/L (15-37); BICARBONATE 27.2 MEQ/L (21.0-32.0); BLOOD UREA NITROGEN 50 MG/DL (7-18); CHLORIDE 99 MEQ/L (98-107); GLOMERULAR FILTRATION RATE 27 ML/MIN (>89); POTASSIUM 3.7 MEQ/L (3.5-5.1); SODIUM (NA) 137 MEQ/L (136-145); TOTAL BILIRUBIN ADULT 1.1 MG/DL (0.2-1.0)
--- NOTE | 2016-11-09 08:17 | HHI.FPPN ---
Subjective Remarks Pt seen and examined this morning. AFVSS. No acute events overnight. Reports he is feeling "great." Wants to get out of unit as soon as possible. Tolerating PO without nausea, vomiting, or abdominal pain. Denies CP, SOB, or palpitations. ( Janina Simon MD) Objective Vitals Vital Signs Date Time Temp Pulse Resp B/P Pulse Ox O2 Delivery O2 Flow Rate FiO2 11/09/16 06:00 45 11/09/16 04:00 45 11/09/16 04:00 97.6 45 21 114/64 96 11/09/16 02:00 44 11/09/16 00:00 49 11/09/16 00:00 97.6 49 23 131/74 96 11/08/16 22:00 59 11/08/16 20:00 97.8 45 16 121/65 19 11/08/16 20:00 45 11/08/16 18:17 97 Nasal Cannula 2.00 11/08/16 18:00 98.1 45 21 122/74 98 11/08/16 18:00 45 11/08/16 17:45 98.0 45 21 122/74 98 11/08/16 16:38 45 17 101/64 98 Nasal Cannula 11/08/16 14:19 56 18 107/66 100 Nasal Cannula 2 11/08/16 13:33 45 18 107/62 100 Nasal Cannula 2 11/08/16 12:38 48 18 97/53 100 Nasal Cannula 2 11/08/16 11:56 45 18 97/58 100 Nasal Cannula 2 11/08/16 11:02 47 18 90/50 100 Nasal Cannula 2 11/08/16 10:28 45 18 81/51 100 Nasal Cannula 2 11/08/16 10:02 44 18 89/52 100 Nasal Cannula 2 11/08/16 09:43 40 18 76/52 100 Nasal Cannula 2 11/08/16 09:39 52 18 95/50 100 Nasal Cannula 3 86/47 11/08/16 09:35 98.1 72 18 95/50 100 Nasal Cannula 2 11/08/16 09:35 100 Nasal Cannula 2 11/08/16 09:26 160 20 Room Air 11/08/16 09:12 96.4 162 12 65/48 I/O 5/10/17 5/10/11/08/16 11/09/16 11/09/16 11/09/16 07:00 15:00 23:00 07:00 15:00 23:00 Intake Total 240 ml 272 ml Output Total 200 ml 600 ml Balance 40 ml -328 ml Intake Oral 240 ml 0 ml IV Total 0 ml 272 ml Output Urine Total 200 ml 600 ml # Bowel Movements 0 0 (Janina Simon MD) Result Diagram: 11/09/16 0400 11/09/16 0400 Imaging Chest X-Ray 11/08/1631 Signed Impressions: Service Date/Time: Tuesday, November 08, 2016 09:33 - CONCLUSION: 1. Small nodule projects over the right lower lobe. Nonemergent CT chest recommended. 2. Cardiomegaly and left-sided pacemaker. Brandon Martinez MD Renal Ultrasound 11/08/16 0000 Signed Impressions: Service Date/Time: Tuesday, November 08, 2016 17:38 - CONCLUSION: Left renal cyst. No hydronephrosis. Goldy Palacios MD Aorta Ultrasound 11/08/16 0000 Signed Impressions: Service Date/Time: Tuesday, November 08, 2016 11:57 - CONCLUSION: Negative for abdominal aortic aneurysm. The left renal artery is not visualized. Oneil Wu MD FACR Objective Remarks GENERAL: WN, WD male sitting up in bed in [facility]. SKIN: Warm and dry. HEENT: AT/NC. Pupils equal and round. MMM. NECK: Supple, no JVD. CHEST: Palpable pacemaker left upper chest. HEART: Bradycardic with a regular rhythm. LUNGS: CTAB without wheezes or crackles. ABDOMEN: Soft, NT, ND. EXTREMITIES: No LE edema. NEURO: Awake and alert. PSYCH: Appropriate mood and affect. (Janina Simon MD) A/P Assessment and Plan 81-year-old male with history of atrial fibrillation, pacemaker placement, and congestive heart failure presented with chest pain on 11/08 and was admitted with cardiogenic shock, atrial flutter with RVR and then subsequently ventricular tachycardia, and NSTEMI. Patient spontaneously converted back to a bradycardic rhythm set by his pacemaker. Patient was admitted to the [facility] for aggressive care. Discharge Planning Unclear discharge timetable as patient to still be monitored in the unit with further cardiac evaluation planned once acute issues stabilize, e.g. LILLI. ( Janina Simon MD) Attending Attestation THIS CASE WAS DISCUSSED WITH THE RESIDENT PHYSICIANS. I HAVE REVIEWED THE RECORD AND AGREE WITH THE ABOVE NOTE AND PLAN OF CARE WAS DISCUSSED. PATIENT WAS SEEN AND EXAMINED WITH THE MEDICAL TEAM. SEE ORDERS. (Ryder Parker MD) Problem List: (1) NSTEMI (non-ST elevated myocardial infarction) Status: Acute Plan: Patient initially presenting with chest pain and elevated troponin of 1.71. Troponins trended overnight: 1.65 > 2.36. Etiology ischemic vs. hypoperfusion during ventricular tachycardia. BNP also significantly elevated at 697. - Cardiology consulted; planning for catheterization once patient stabilizes and LILLI resolved - Cardiology EPS also consulted for further evaluation and management of patient 's pacemaker since he had both atrial flutter with RVR vs. ventricular tachycardia on presentation - Initially in mild cardiogenic shock but improved after heart rate was controlled and he did not require vasopressors overnight - Heparin gtt not administered as patient initially with supratherapeutic INR of 4.8 with no active signs of bleeding - Morphine PRN chest pain - Monitor on telemetry (2) Cardiomyopathy Status: Acute Plan: CXR on admission showed cardiomegaly with no increased pulmonary congestion. Incidental right pulmonary nodule found that will need to be followed up as an outpatient. - BNP elevated at 697 - Check 2D echo - See further plans above for NSTEMI (3) LILLI (acute kidney injury) Status: Acute Plan: Creatinine 3.67 on admission (was <1 in 2015). Improving with gentle IV hydration but creatinine still elevated above baseline at 2.33 this AM. Likely from hypoperfusion secondary to cardiogenic shock. Nephrology consulted. - Avoid nephrotoxic agents - Renally dose medications - Holding off on catheterization until renal function improves (4) Transaminitis Status: Acute Plan: LFTs increased to 179 and 222 on admission; slightly improved today. Possibly from organ hypoperfusion during episodes of ventricular tachycardia. - Continue to closely monitor (5) Atrial fibrillation Status: Acute Plan: Patient anticoagulated on Coumadin with supratherapeutic INR of 4.8 on admission. - Hold Coumadin until INR improves - Pacemaker in place and patient with bradycardia down to 40s. EPS consulted for evaluation of pacemaker (6) Supratherapeutic INR Status: Acute Plan: INR continues to be supratherapeutic at 3.3. Holding home Coumadin. Cardiology recommending heparin drip for NSTEMI once INR decreases. (7) FEN/PPX Status: Acute Plan: - Fluids: Gentle IV hydration for LILLI. Caution with fluid overload - Electrolytes: WNL. Monitor and replete as needed - Nutrition: Heart healthy diet - DVT prophylaxis: INR currently supratherapeutic; holding home Coumadin - GI prophylaxis: Protonix 40 mg IV daily while in the unit sdw Dr. Parker, Dr. Gonzalez, and Dr. Peralta (Janina Simon MD) Janina Simon MD November 09, 2016 08:17 Ryder Parker MD November 10, 2016 08:22
--- NOTE | 2016-11-09 08:38 | MB ---
cc: TRINO HORVATH DO DATE OF CONSULTATION 11/08/2016 REASON FOR CONSULTATION Ventricular tachycardia with elevated troponin. HISTORY OF PRESENT ILLNESS Mr. Agudelo is a pleasant 81-year-old male who presents to [facility] on November 08, 2016 due to chest pain and upper epigastric tightness. He states that this started two days before. He felt that he had some food poisoning and had diarrhea multiple times throughout the day which was nonbloody in nature. He also felt that he was sweating more extensively than usual. He denies any nausea or vomiting. He usually sleeps flat, but over the past two nights he has had to sleep upright in a chair. He has been also taking his water pill, but does not make urine as frequent as he usually would. The feeling in his chest and upper epigastric area is a bloated type feeling. He does not feel that it is chest pain, but more of a discomfort along his ribs and down into his upper epigastric area. He denies fevers or chills. He has also felt relatively weak and faint over the past two days. On arrival, it was felt that he was in atrial flutter, but when his pacemaker was interrogated, it appears to be runs of ventricular tachycardia. In reviewing his pacemaker interrogation, he has had multiple episodes of nonsustained ventricular tachycardia over the past few days. On presentation, his blood pressure was 65/48, but once this heart rate was controlled, his blood pressure has resumed back to 122/74. In seeing him, he is currently comfortable without chest pain or shortness of breath. He no longer has the feeling of bloating in his lower chest, upper epigastric area. PAST MEDICAL HISTORY 1. Nonischemic cardiomyopathy 2. Atrial fibrillation 3. Hyperlipidemia PAST SURGICAL HISTORY 1. [employer] pacemaker placed two years ago 2. Hernia surgery bilaterally 3. Left knee surgery Above effect ALLERGIES NO KNOWN DRUG ALLERGIES. MEDICATIONS 1. Lipitor 10 mg every night 2. Lasix 40 mg b.i.d. 3. Meclizine 25 mg t.i.d. 4. Coreg 25 mg b.i.d. 5. Coumadin 4 mg Sunday, Sunday, Sunday starting Sunday, 3 mg . FAMILY HISTORY Denies premature coronary artery disease or sudden cardiac within the family. SOCIAL HISTORY The patient is a nonsmoker. He rarely drinks alcohol. Denies drugs. He is from [place] lives with his and dog. He is currently in the process of moving to [facility] . REVIEW OF SYSTEMS 14-systems were reviewed including osteopathic pertinent positives and negatives as above, otherwise negative. PHYSICAL EXAMINATION VITAL SIGNS: Temperature 98.1, heart rate 45, blood pressure 122/74, respirations 21, pulse ox 98% on two liters. GENERAL: The patient appears well in no acute distress, alert awake and oriented x3. HEAD, EYES, EARS, NOSE, AND THROAT: Extraocular muscles intact. Mucous membranes moist. NECK: Supple. No JVD at 45 degrees. No carotid bruits heard bilaterally. Carotid upstroke is brisk in nature. HEART: Bradycardic. Positive first and second heart sounds with no noted murmurs, gallops or rubs. LUNGS: Decreased breath sounds at bilateral bases but no overt wheezes, rales or rhonchi. ABDOMEN: Soft, nontender, nondistended. No organomegaly noted. EXTREMITIES: Show no clubbing, cyanosis or edema. SKIN: Warm, dry and intact. OSTEOPATHIC: No kyphoscoliosis, lordosis or paraspinal tender points. LABORATORY FINDINGS White blood cell 16.4, hemoglobin 16.7, hematocrit 49.9, platelets 199. INR 4.8, potassium 4.6, BUN 46, creatinine 3.64, lactic acid 2.1, AST 179, ALT 222, troponin 2.36, BNP 697. Electrocardiogram (November 08, 2016 at 13, 54) ventricular lip ventricular paced at 45 beats per minute. Electrocardiogram November 08, 2016 at 0922) wide complex tachycardia, possible A. flutter versus ventricular tachycardia. IMPRESSIONS 1. Ventricular tachycardia 2. Baseline bradycardia with ventricular pacing set at 45 beats per minute 3. Acute kidney injury 4. Supratherapeutic INR possibly due to hepatic congestion 5. NSTEMI possibly due to long-term ventricular tachycardia versus ischemia. 6. History of nonischemic cardiomyopathy. 7. Hyperlipidemia 8. Cardiogenic shock which has since resolved after ventricular tachycardia has resolved. 9. Leukocytosis 10. Recent multiple episodes of diarrhea. RECOMMENDATIONS 1. Herbert appears to have presented with multiple episodes of ventricular tachycardia which may be ischemia induced. 2. He currently has an elevated troponin and this is most likely due to having multiple episodes of ventricular tachycardia versus ischemia. 3. Unfortunately at this time, he cannot undergo cardiac catheterization due to his significant acute kidney injury. 4. I feel that we should gently hydration him at this time and watch his kidney function, depending on the results of his kidney function, he should most likely undergo coronary visualization to rule out an ischemic lesion causing his ventricular tachycardia. 5. He does have a supratherapeutic INR and this is most likely due to hepatic congestion due to decreased forward flow from his arrhythmia. 6. If at any time he becomes hemodynamically compromised or electrically unstable to the point where we cannot control his arrhythmia, then he may need undergo cardiac catheterization at a sooner point. 7. We will check a 2-D echo to look at his overall left ventricular function, cardiac structure and possible valvulopathies. 8. We will continue to hold his Coumadin. 9. As his INR decreases, he should then be placed on a heparin drip due to his NSTEMI and possible ischemic lesion. 10. Further recommendations will be made based on the hospital course. Thank you for allowing me to see Herbert Agudelo. If there are any questions, please do not hesitate to call. Trino Horvath DO VGP/DJL /11:23 PM /8:17 AM
[2016-11-09] MEDS: DOCUSATE SODIUM 100 MG CAP PO SCH ×2 (09:00→20:54)
--- NOTE | 2016-11-09 09:28 | HHI.CCPN ---
Subjective Remarks/Hospital Course 81-year-old male patient with history of atrial fibrillation and CHF, originally from [place], presented with a 2 day history of chest, upper epigastric "tightness." He states it all started 2 days ago. He thinks at the time he may have had food poisoning, but he can't think of anything which caused it. At the time, he had multiple episodes of diarrhea 8, nonbloody. Diffuse, persistent sweaty episodes "like crazy". His shirt would be soaked with sweat, but he sheets at night are not soaked. He denied any vomiting episodes, but dry heaved. He normally is able to walk miles and sleep flat. But the last 2 nights he has had to sleep upright in a chair. He is taking his water pill, but he has not made urine frequently. The last time he urinated was this morning at 3 AM. His chest, upper epigastric "tightness", this started 2 days ago. It is right below the ribs and describes it as "bloating." It is discomforting but not painful. Discomforting 6 out of 10. It is constant and does not really go away. But he also is "not sure how to answer that question." He denies fevers at home. Denies cough. No sick contacts. [place] as though he was given a faint over the last 2 nights. In the ED, Dr. Lima was consult to cardiology. In discussion with cardiology per Dr. Dhillon, the patient has episodes and runs of V. tach, so the episodes earlier today were not new. Nephrology was consulted and a formal consult was placed for Dr. Noel. The patient's pacemaker was set at 40 was interrogated, [employer] in the ED. The reports were provided to Dr. Noel to determine if interventions were needed. Upon entering the ED the patient's blood pressure was 109/55. Critical care medicine was consult for management. Subjective: 11/09: Afebrile. Overnight the patient had no episodes of angina, or episodes of V. tach. Was placed on mild hydration with noted decrease in creatinine. The patient remains normotensive however pacemaker is set at 45. Answer reconsult [employer] this a.m., regarding increase in heart rate. consulted for management of pacemaker. Objective Vital Signs Date Time Temp Pulse Resp B/P Pulse Ox O2 Delivery O2 Flow Rate FiO2 11/09/16 06:00 45 11/09/16 04:00 97.6 21 114/64 96 11/08/16 18:17 Nasal Cannula 2.00 Intake and Output 11/08/16 11/08/16 11/08/16 07:59 15:59 23:59 Intake Total 240 ml Output Total 200 ml Balance 40 ml Result Diagram: 11/09/16 0400 11/09/16 0400 Other Results Laboratory Tests Test 11/08/16 12:30 Blood Gas Puncture Site RT RADIAL Blood Gas Patient Temperature 98.6 Blood Gas HCO3 21 mmol/L (22-26) Blood Gas Base Excess -2.4 mmol/L (-2-2) Blood Gas Oxygen Saturation 98 % (90-100) Arterial Blood pH 7.44 (7.380-7.420) Arterial Blood Partial 32 mmHg (38-42) Pressure CO2 Arterial Blood Partial 115 mmHG Pressure O2 (61-120) Arterial Blood Oxygen Content 20.5 Vol % (12.0-20.0) Arterial Blood 0.8 % (0-4) Carboxyhemoglobin Arterial Blood Methemoglobin 0.2 % (0-2) Blood Gas Hemoglobin 14.9 G/DL (12.0-16.0) Oxygen Delivery Device NASAL CANNULA Blood Gas Liter Flow 2 L/M Imaging Last Impressions Chest X-Ray 11/08/16 0931 Signed Impressions: Service Date/Time: Tuesday, November 08, 2016 09:33 - CONCLUSION: 1. Small nodule projects over the right lower lobe. Nonemergent CT chest recommended. 2. Cardiomegaly and left-sided pacemaker. Brandon Martinez MD Aorta Ultrasound 11/08/16 0000 Signed Impressions: Service Date/Time: Tuesday, November 08, 2016 11:57 - CONCLUSION: Negative for abdominal aortic aneurysm. The left renal artery is not visualized. Oneil Wu MD FACR Objective Remarks GENERAL: Elderly gentleman well-developed well-nourished sitting semi-recumbent in bed in no apparent distress SKIN: Warm and dry. HEAD: Atraumatic. Normocephalic. EYES: Pupils equal and round. No scleral icterus. No injection or drainage. ENT: No nasal bleeding or discharge. Mucous membranes pink and moist. NECK: Trachea midline. No JVD. CARDIOVASCULAR: Normal rate, regular rhythm. Pacemaker noted RESPIRATORY: No accessory muscle use. Clear to auscultation. Breath sounds equal bilaterally. GASTROINTESTINAL: Abdomen soft, non-tender, nondistended. No guarding. MUSCULOSKELETAL: Extremities without clubbing, cyanosis, or edema. No obvious deformities. NEUROLOGICAL: Awake and alert. RASS 0. No gross focal/sensory deficits. Follows commands in all 4 extremities. Urinary Catheter: No A/P Assessment and Plan ASSESSMENT Dysrhythmias -ventricular tachycardia, bradycardia LILLI Supratherapeutic INR History of CHF Hyperlipidemia Cardiogenic shock Elevated troponins Pacemaker-45 bpm (set rate) Sinus bradycardia Leukocytosis PLAN Neuro Neurochecks per ICU protocol Tylenol 650 mg every 6 hours when necessary for pain Respiratory Patient currently on O2 at 2 L nasal cannula, O2 saturation 100% Will begin incentive spirometry in the a.m. Bronchodilators when necessary CV Cardiology consulted-Dr. De La Cruz, plans for possible cardiac catheter in the future Cardiology EPS consulted- Dr. Noel for evaluation and possible interventions of current pacemaker Maintain MAP. greater than 65 mmHg. We'll consider vasopressors if needed, currently systolic blood pressure 109 Continue statin, ASA home med Hold Coumadin, monitor INR 4.8-> 3.3 Troponin 1.71->2.36 Plan to contact [employer] today, to reevaluate an increase heart rate of pacemaker GI Heart healthy diet Protonix GI prophylaxis Zofran for nausea Bowel regimen Renal Nephrology consulted-follow up recommendations Creatinine 3.6-> 2.3 today, potassium 3.7 Continued gentle hydration normal saline 50 cc/hour Strict I&O Monitor BMP Heme/ID WBC-16->12 Monitor CBC No active signs of bleeding continue to monitor Hold Coumadin 11/07 blood, urine and cultures-NGTD Tylenol for temp greater than 101.0 GI prophylaxis Protonix DVT prophylaxis none in the setting of supratherapeutic INR Dispo: Discussed with Dr. De La Cruz, and [employer] at bedside Planned transfer to [facility] will sign off , discussed with Dr. Guzman This patient remains critically ill with one or more organ systems which are or may become a threat to life. I have spent in excess of 32 minutes discontinuously in the care and management of this patient. This time is exclusive of procedures, and includes, but is not limited to, evaluation of the patient, review of the medical record, discussions with family, consultants, nursing staff, or respiratory therapy, and documentation in the medical record. Physician Melba Monreal MD November 09, 2016 09:28
[2016-11-09] MEDS: PANTOPRAZOLE SODIUM 40 MG VIAL IV SCH (09:32)
[2016-11-09] MEDS: SODIUM CHLORIDE 0.9% FLUSH 10 ML FLUSH IV FLUSH SCH ×2 (09:32→20:54)
[2016-11-09] MEDS: ASPIRIN 81 MG CHEW TAB CHEW SCH (09:32)
--- NOTE | 2016-11-09 12:59 | EC ---
Study Study Date:11/09/2016 STUDY CONCLUSIONS SUMMARY - Left ventricle: The cavity size was normal. Wall thickness was normal. Systolic function was moderately reduced. The estimated ejection fraction was in the range of 35% to 40%. Wall motion was normal; there were no regional wall motion abnormalities. - Mitral valve: Moderate regurgitation. - Tricuspid valve: Mild regurgitation. If LV function is below 40, please consider prescribing an ACEI or ARB or document rationale for non-use. PROCEDURE DATA STUDY STATUS: Elective. Procedure: Transthoracic echocardiography. Image quality was good. Scanning was performed from the parasternal, apical, and subcostal acoustic windows. Study completion: The patient tolerated the procedure well. Transthoracic echocardiography. M-mode, complete 2D, complete spectral Doppler, and color Doppler. Height: Height: 69in. Weight: Weight: 175.6lb. Body mass index: BMI: 26kg/m^2. Body surface area: BSA: 1.96m^2. Patient status: Inpatient. CARDIAC ANATOMY LEFT VENTRICLE: The cavity size was normal. Wall thickness was normal. Systolic function was moderately reduced. The estimated ejection fraction was in the range of 35% to 40%. Wall motion was normal; there were no regional wall motion abnormalities. AORTIC VALVE: Trileaflet; normal thickness leaflets. Doppler: Transvalvular velocity was within the normal range. There was no stenosis. No regurgitation. AORTA: Aortic root: The aortic root was normal in size. MITRAL VALVE: Structurally normal valve. Doppler: Transvalvular velocity was within the normal range. There was no evidence for stenosis. Moderate regurgitation. LEFT ATRIUM: severely enlarged The atrium was normal in size. RIGHT VENTRICLE: The cavity size was normal. Wall thickness was normal. PULMONIC VALVE: Doppler: Transvalvular velocity was within the normal range. There was no evidence for stenosis. No regurgitation. TRICUSPID VALVE: Structurally normal valve. Doppler: Transvalvular velocity was within the normal range. Mild regurgitation. Peak gradient: 41mm Hg (D). PULMONARY ARTERY: The main pulmonary artery was normal-sized. Systolic pressure was within the normal range. RIGHT ATRIUM: The atrium was normal in size. PERICARDIUM: There was no pericardial effusion. SYSTEMIC VEINS: Inferior vena cava: The vessel was normal in size. Patient weight: 175.6lb _Ejection fraction:_ 65-75% _Fractional shortening:_ 32% up to 5Kg 5-11.5Kg 11.6-22.9Kg 23-45Kg 45-57Kg Aortic Root 7-13 <17 13-22 17-27 17-27 LA diam 6-13 <23 24-38 33-47 37-40 RVID 10-17 7-15 7-15 7-18 8-17 LVIDd 12-22 <32 24-38 33-47 37-40 LVPW 2-4 3-6 5-7 6-8 7-8 IVS 2-4 3-6 5-7 6-8 7-8 BASIC MEASUREMENTS ADULT Normal Left ventricle LV internal dimension, ED, chordal level, *54 mm 43-52 PLAX LV internal dimension, ES, chordal level, *47.1 mm 23-38 PLAX Fractional shortening, chordal level, PLAX *13 % >29 LV posterior wall thickness, ED 13.8 mm IVS/LVPW ratio, ED 0.99 <1.3 Volume, ED, MOD, 1-plane 154 ml Volume, ES, MOD, 1-plane 102 ml Ejection fraction, MOD, 1-plane 34 % Stroke volume, MOD, 1-plane 52 ml Volume index, ED, MOD, 1-plane 79 ml/m^2 Volume index, ES, MOD, 1-plane 52 ml/m^2 Stroke index, MOD, 1-plane 26.5 ml/m^2 Ventricular septum Septal thickness, ED 13.6 mm Aortic valve Leaflet separation 19 mm 15-26 Left atrium Anterior-posterior dimension 49 mm Anterior-posterior dimension index *2.5 cm/m^2 <2.2 Right ventricle RV internal dimension, ED, PLAX 31.9 mm 19-38 BASIC MEASUREMENTS ADULT Normal Aortic valve Leaflet separation 19 mm 15-26 Aorta Root diameter, ED 32 mm 20-37 DOPPLER MEASUREMENTS ADULT Normal Aortic valve Peak velocity, S 107 cm/s Regurgitant velocity, ED 243 cm/s Regurgitant deceleration 891 cm/s^2 Regurgitant pressure half-time 800 ms Regurgitant gradient, ED 24 mm Hg Tricuspid valve Peak gradient, D 41 mm Hg Maximal inflow velocity 319 cm/s Pulmonic valve Peak velocity, S 67.9 cm/s LEGEND: Mean values are shown as u=mean value. Asterisk (*) canales values outside specified normal range. Prepared and signed by Montana Roach [id number]
--- NOTE | 2016-11-09 13:00 | PD.CARD.PN ---
Subjective Subjective Remarks No chest pain, no shortness of breath Hemodynamically stable Telemetry showing no arrhythmias Objective Medications Current Medications Medications (Trade) Dose Ordered Sig/Royce Route Start Time Stop Time Status Last Admin (Morphine Inj) 2 mg Q2H PRN IV 11/08/16 12:00 (Lipitor) 10 mg HS PO 11/08/16 21:00 11/08/16 21:43 (NS Flush) 2 ml UNSCH PRN IV FLUSH 11/08/16 13:00 (NS Flush) 2 ml BID IV FLUSH 11/08/16 21:00 11/09/16 09:32 (Tylenol) 650 mg Q6H PRN PO 11/08/16 13:00 (Protonix Inj) 40 mg DAILY IV 11/09/16 09:00 11/09/16 09:32 (Zofran Inj) 4 mg Q6H PRN IV 11/08/16 13:00 (Colace) 100 mg BID PO 11/08/16 21:00 (Milk Of Magnesia Liq) 30 ml Q12H PRN PO 11/08/16 13:00 Miscellaneous Information 1 Q361D XX 11/08/16 13:00 (Chlorhexidine 2% Cloth) 3 pack Taper DAILY@04 TOP 11/09/16 04:00 11/05/17 03:59 11/09/16 04:00 Chlorhexidine Gluconate 3 pack 3 pack UNSCH PRN TOP 11/08/16 13:00 (NS 1000 ml Inj) 1,000 ml @ 50 mls/hr Q20H IV 11/08/16 23:45 11/09/16 00:01 (Aspirin Chew) 81 mg DAILY CHEW 11/09/16 09:00 11/09/16 09:32 Vital Signs / I&O Vital Signs Date Time Temp Pulse Resp B/P Pulse Ox O2 Delivery O2 Flow Rate FiO2 11/09/16 10:00 45 11/09/16 09:17 95 Nasal Cannula 2.00 11/09/16 08:00 45 11/09/16 06:00 45 11/09/16 04:00 45 11/09/16 04:00 97.6 45 21 114/64 96 11/09/16 02:00 44 11/09/16 00:00 49 11/09/16 00:00 97.6 49 23 131/74 96 11/08/16 22:00 59 11/08/16 20:00 97.8 45 16 121/65 19 11/08/16 20:00 45 11/08/16 18:17 97 Nasal Cannula 2.00 11/08/16 18:00 98.1 45 21 122/74 98 11/08/16 18:00 45 11/08/16 17:45 98.0 45 21 122/74 98 11/08/16 16:38 45 17 101/64 98 Nasal Cannula 11/08/16 14:19 56 18 107/66 100 Nasal Cannula 2 11/08/16 13:33 45 18 107/62 100 Nasal Cannula 2 I/O 11/08/16 11/08/16 11/08/16 11/09/16 11/09/16 11/09/16 06:59 14:59 22:59 06:59 14:59 22:59 Intake Total 240 ml 272 ml Output Total 200 ml 600 ml Balance 40 ml -328 ml Intake Oral 240 ml 0 ml IV Total 0 ml 272 ml Output Urine Total 200 ml 600 ml # Bowel Movements 0 0 Physical Exam GENERAL: NAD, AAOx3 SKIN: Warm and dry. HEAD: Atraumatic. Normocephalic. EYES: Pupils equal and round. No scleral icterus. No injection or drainage. ENT: No nasal bleeding or discharge. Mucous membranes pink and moist. NECK: Trachea midline. No JVD. CARDIOVASCULAR: Bradycardic RESPIRATORY: No accessory muscle use. Clear to auscultation bilaterally GASTROINTESTINAL: Abdomen soft, non-tender, nondistended. Hepatic and splenic margins not palpable. MUSCULOSKELETAL: Extremities without clubbing, cyanosis, or edema. No obvious deformities. NEUROLOGICAL: Awake and alert. No obvious cranial nerve deficits. Motor grossly within normal limits. Five out of 5 muscle strength in the arms and legs. Normal speech. PSYCHIATRIC: Appropriate mood and affect; insight and judgment normal. Laboratory Laboratory Tests Test 11/08/16 11/08/16 11/08/16 11/09/16 14:30 17:15 19:11 04:00 Urine Color YELLOW Urine Turbidity HAZY Urine pH 5.0 Urine Specific [place] 1.015 Urine Protein 30 mg/dL Urine Glucose (UA) NEG mg/dL Urine Ketones NEG mg/dL Urine Occult Blood NEG Urine Nitrite NEG Urine Bilirubin NEG Urine Urobilinogen LESS THAN 2.0 MG/DL Urine Leukocyte Esterase NEG Urine RBC LESS THAN 1 /hpf Urine WBC 4 /hpf Urine Squamous Epithelial 1 /hpf Cells Urine Bacteria MOD /hpf Urine Hyaline Casts 17 /lpf Microscopic Urinalysis Comment CULTURE INDICATED Nasal Screen MRSA (PCR) MRSA NOT DETECTED Troponin I 2.36 NG/ML White Blood Count 12.8 TH/MM3 Red Blood Count 4.87 MIL/MM3 Hemoglobin 13.4 GM/DL Hematocrit 40.7 % Mean Corpuscular Volume 83.6 FL Mean Corpuscular Hemoglobin 27.6 PG Mean Corpuscular Hemoglobin 33.0 % Concent Red Cell Distribution Width 14.0 % Platelet Count 148 TH/MM3 Mean Platelet Volume 9.8 FL Neutrophils (%) (Auto) 69.6 % Lymphocytes (%) (Auto) 19.1 % Monocytes (%) (Auto) 10.0 % Eosinophils (%) (Auto) 0.9 % Basophils (%) (Auto) 0.4 % Neutrophils # (Auto) 8.9 TH/MM3 Lymphocytes # (Auto) 2.5 TH/MM3 Monocytes # (Auto) 1.3 TH/MM3 Eosinophils # (Auto) 0.1 TH/MM3 Basophils # (Auto) 0.0 TH/MM3 CBC Comment DIFF FINAL Differential Comment Prothrombin Time 38.1 SEC Prothromb Time International 3.3 RATIO Ratio Sodium Level 137 MEQ/L Potassium Level 3.7 MEQ/L Chloride Level 99 MEQ/L Carbon Dioxide Level 27.2 MEQ/L Anion Gap 11 MEQ/L Blood Urea Nitrogen 50 MG/DL Creatinine 2.33 MG/DL Estimat Glomerular Filtration 27 ML/MIN Rate Random Glucose 137 MG/DL Calcium Level 8.3 MG/DL Phosphorus Level 3.9 MG/DL Total Bilirubin 1.1 MG/DL Aspartate Amino Transf 163 U/L (AST/SGOT) Alanine Aminotransferase 227 U/L (ALT/SGPT) Alkaline Phosphatase 71 U/L Total Protein 5.8 GM/DL Albumin 3.1 GM/DL Assessment and Plan Problem List: (1) NSTEMI (non-ST elevated myocardial infarction) (2) Ventricular tachycardia (3) Cardiomyopathy (4) Transaminitis (5) Bradycardia (6) Cardiogenic shock (7) Supratherapeutic INR (8) LILLI (acute kidney injury) (9) Atrial fibrillation Assessment and Plan 1) Presented with general weakness and chest tightness, found to be in ventricular tachycardia with multiple episodes over the past few days Cause may be primary ischemia vs dehydration leading to hyperfusion/ hypotension leading to ischemia 2) NSTEMI possible Type 1 vs 2 3) Baseline PPM at 45 bpm, can be increased by [employer] but currently hemodynamically stable... increase heart rate to 50bpm may increase cardiac output somewhat as he is pacing most of the time anyways 4) LILLI, light hydration, will need to continue to follow 5) Supratherapeutic INR due to hepatic congestion, continue to follow, no bleeding noted 6) Hx of NICM, but has a PPM and no ICD, unsure why at this time Awaiting echo to define EF 7) Leukocytosis most likely reactive with recent diarrhea, cultures sent by primary team 8) Due to elevated troponin and ventricular tachycardia, recommended cardiac catheterization, most likely next week after medical recovery of kidney function /INR Discussed extensively with Herbert, but is hesitant about catheterization, he will think about it, but if it is necessary then he will proceed 9) Will add back his BB at a low dose to help with possible arrhythmias Trino De La Cruz DO November 09, 2016 13:00
--- NOTE | 2016-11-09 15:11 | EKG ---
Date Performed: 11/08/2016 Time Performed: 13:54:02 PTAGE: 81 years EKG: ELECTRONIC VENTRICULAR PACEMAKER ABNORMAL RHYTHM ECG PREVIOUS TRACING : 11/08/2016 09.29 DOCTOR: Montana Roach Interpretating Date/Time 11/09/2016 15:10:11
--- NOTE | 2016-11-09 17:06 | MB ---
cc: SURINDER HORVATH HANSCY M.D. DATE OF CONSULTATION: 11/09/2016. REASON FOR CONSULTATION: Electrophysiology consultation for ventricular tachycardia. HISTORY OF PRESENT ILLNESS: Mr. Agudelo is an 81-year-old gentleman with history of atrial fibrillation, high blood pressure and hyperlipidemia. He had a [facility]. The gentleman was at home yesterday and began with shortness of breath, sweating and dizziness. He was brought to the emergency room. He was found to be in ventricular tachycardia. Blood pressure was around 65/38 during the episode. The episode resolved with medication. The patient's troponin was up to 1.71. Creatinine was 3.67. Electrolytes were normal. I was consulted for further evaluation and management. The chart was reviewed. The patient was evaluated. ALLERGIES: None. SOCIAL HISTORY: The gentleman denies smoking and drinking. FAMILY HISTORY: Noncontributory to his current medical condition. MEDICATIONS AT HOME: He was on: 1. Meclizine. 2. Lasix. 3. Coreg. 4. Coumadin. 5. Lipitor. Aspirin was added during hospitalization. REVIEW OF SYSTEMS: Currently the patient refers no chest pain and no chest discomfort. No vomiting. No fever. PHYSICAL EXAMINATION: GENERAL: Alert, fully oriented. VITAL SIGNS: His blood pressure is 114/64, pulse currently is 45 on telemetry. Respiratory rate 18. LUNGS: Ventilated. CARDIOVASCULAR: S1 and S2 regular. No gallop. ABDOMEN: Abdomen soft. No mass. Obese. EXTREMITIES: No edema. EKGS: Electrocardiogram on admission indicated V pacing, multiple PVCs. Previous electrocardiogram showed a wide complex tachyarrhythmia. Ventricular tachycardia. LABORATORY DATA: Hemoglobin is 13.4, white blood cell count 12.8. Potassium 3.7 currently. On hospitalization, it was 4.6. Troponin was 1.71 on hospitalization; currently it is 2.36. Creatinine is significantly improved from 3.67 to 2.33. ASSESSMENT AND RECOMMENDATIONS: Interrogation of the pacemaker shows ventricular tachyarrhythmia. I did review the strip yesterday. The case was discussed with Dr. Horvath. The gentleman's troponin is increased maybe because of the ventricular tachycardia, but ischemia should be ruled out. He will need a left heart catheterization first. If there is no need for revascularization, then I will proceed with electrophysiology study and device upgrade. The case was extensively discussed with the gentleman. We are waiting for the interventional cardiology workup and then further decision will be taken. MD DAJUAN Haynes/MICHELLE /4:05 PM /4:52 PM
--- NOTE | 2016-11-09 17:43 | HHI.NPPN ---
Subjective History of Present Illness The patient is an 81 yo [place] male who presented to this facility 11/08/16 with complaints of 2 days of chest discomfort, diarrhea x8, decreased UOP, and diaphoresis. He is in the process of moving from [place] and thought initially related to stress of that, but when symptoms persisted, decided to come to ED for evaluation. He has a PMHx of persistent atrial fibrillation for which he had pacer placed, CHF (unsure of EF), and HTN. He is unaware of any previous renal issues (contacted his PCP Dr. Campbell in [place] who reported last SCr was 1.12 Nov 2015). Denies any NSAID use in the recent past. Despite feeling bad, continued to take home medications which include Lisinopril 5mg QD, Furosemide 40mg BID, Coreg 25mg BID, and Atorvastatin. On arrival, suspicion was for AAA so an emergent US was done that showed no dissection. CXR showed no vascular congestion. Was found that he was in atrial flutter with RVR with HR in 160s. At the present, says he is feeling much better. BP has improved (was systolically in the 60s at one point) to systolic of 100mmHg, and now HR in the 40s. Awaiting consultation with card cutter for pacer interrogation and likely adjustment. Admitting SCr of 3.64, eGFR 16, K 4.6, CO2 21, WBC 16.4, Hgb 16.7, elevated LFTs , elevated troponins but not trending, UA overall bland. Interval History Patient had no verbal complaints today. Indicated that he was feeling better. Objective Data Data 11/08/16 11/09/16 18:59 06:59 Intake Total 512 ml Output Total 800 ml Balance -288 ml Intake Oral 240 ml IV Total 272 ml Output Urine Total 800 ml # Bowel Movements 0 Vital Signs Date Time Temp Pulse Resp B/P Pulse Ox O2 Delivery O2 Flow Rate FiO2 11/09/16 10:00 45 11/09/16 09:17 95 Nasal Cannula 2.00 11/09/16 08:00 45 11/09/16 06:00 45 11/09/16 04:00 45 11/09/16 04:00 97.6 45 21 114/64 96 11/09/16 02:00 44 11/09/16 00:00 49 11/09/16 00:00 97.6 49 23 131/74 96 11/08/16 22:00 59 11/08/16 20:00 97.8 45 16 121/65 19 11/08/16 20:00 45 11/08/16 18:17 97 Nasal Cannula 2.00 11/08/16 18:00 98.1 45 21 122/74 98 11/08/16 18:00 45 11/08/16 17:45 98.0 45 21 122/74 98 -: 11/09/16 0400 11/09/16 0400 Medication Review Current Medications Sodium Chloride 2 ml 2 ml UNSCH PRN IVF FLUSH AFTER USING IV ACCESS; Start 04/17 at 09:45; Stop 11/08/16 at 13:08; Status DC Sodium Chloride (NS 500 ml Inj) 500 ml @ 500 mls/hr BOLUS ONCE IV Last administered on 11/08/16t 09:47; Start 11/08/16 at 09:45; Stop 11/08/16 at 10:44 ; Status DC Sodium Chloride (NS Flush) 2 ml UNSCH PRN IV FLUSH FLUSH AFTER USING IV ACCESS ; Start 11/08/16 at 12:00; Stop 11/08/16 at 13:08; Status DC Sodium Chloride (NS Flush) 2 ml BID IV FLUSH ; Start 11/08/16 at 21:00; Stop 04/17 at 21:00; Status DC Acetaminophen (Tylenol) 650 mg Q6H PRN PO PAIN 1-10 AND/OR FEVER >101F; Start 11/08/16 at 12:00; Stop 11/08/16 at 13:10; Status DC Morphine Sulfate (Morphine Inj) 2 mg Q2H PRN IV PAIN SCALE 6 TO 10; Start 11/08 at 12:00 Ondansetron HCl (Zofran Inj) 4 mg Q6H PRN IV NAUSEA OR VOMITING; Start at 12:00; Stop 11/08/16 at 13:08; Status DC Magnesium Hydroxide (Milk Of Magnesia Liq) 30 ml Q12HR PRN PO CONSTIPATION; Start 11/08/16 at 12:00; Stop 11/08/16 at 13:10; Status DC Heparin Sodium (Porcine) (Heparin Inj) 5,000 units Q12HR SQ ; Start 11/08/16 at 21:00; Stop 11/08/16 at 21:00; Status DC Miscellaneous Information 1 Q361D XX ; Start 11/08/16 at 12:00; Stop 11/08/16 at 13:07; Status DC Chlorhexidine Gluconate (Chlorhexidine 2% Cloth) 3 pack Taper DAILY@04 TOP ; Start 11/09/16 at 04:00; Stop 11/09/16 at 04:00; Status DC Chlorhexidine Gluconate (Chlorhexidine 2% Cloth) 3 pack UNSCH PRN TOP HYGIENIC CARE; Start 11/08/16 at 12:00; Stop 11/08/16 at 13:07; Status DC Atorvastatin Calcium (Lipitor) 10 mg HS PO Last administered on 11/08/16 21:43 ; Start 11/08/16 at 21:00 Sodium Chloride (NS Flush) 2 ml UNSCH PRN IV FLUSH FLUSH AFTER USING IV ACCESS ; Start 11/08/16 at 13:00 Sodium Chloride (NS Flush) 2 ml BID IV FLUSH Last administered on 11/09/16 09: 32; Start 11/08/16 at 21:00 Acetaminophen (Tylenol) 650 mg Q6H PRN PO PAIN 1-10 AND/OR FEVER >101F; Start 11/08/16 at 13:00 Pantoprazole Sodium (Protonix Inj) 40 mg DAILY IV Last administered on 09:32; Start 11/09/16 at 09:00 Ondansetron HCl (Zofran Inj) 4 mg Q6H PRN IV NAUSEA OR VOMITING; Start at 13:00 Docusate Sodium (Colace) 100 mg BID PO ; Start 11/08/16 at 21:00 Magnesium Hydroxide (Milk Of Magnesia Liq) 30 ml Q12H PRN PO CONSTIPATION; Start 11/08/16 at 13:00 Miscellaneous Information 1 Q361D XX ; Start 11/08/16 at 13:00 Chlorhexidine Gluconate (Chlorhexidine 2% Cloth) 3 pack Taper DAILY@04 TOP Last administered on 11/09/16 04:00; Start 11/09/16 at 04:00; Stop 11/05/17 at 03:59 Chlorhexidine Gluconate 3 pack 3 pack UNSCH PRN TOP HYGIENIC CARE; Start at 13:00 Sodium Chloride (NS 1000 ml Inj) 1,000 ml @ 50 mls/hr Q20H IV Last administered on 11/09/16 00:01; Start 11/08/16 at 23:45 Aspirin (Aspirin Chew) 81 mg DAILY CHEW Last administered on 11/09/16 09:32; Start 11/09/16 at 09:00 Carvedilol (Coreg) 3.125 mg Q12HR PO ; Start 11/09/16 at 21:00 Physical Exam General Appearance: No Acute Distress, Comfortable Eyes Eye Exam: Sclera White Neck Neck Exam: Trachea Midline Pulmonary Resp Exam: Clear Bilaterally, Breath Sounds Equal, No Distress Cardiology CV Exam: Regular, Normal Sinus Rhythm, Good Perfusion Gastrointestinal/Abdomen GI Exam: Soft, Non-Tender Integumentary Skin Exam: Clear, Warm, Dry Extremeties Extremities Exam: No Edema Neurologic Neuro Exam: Alert, Awake, Speech Clear, Moving All Extremities Psychiatric Psych Exam: Appropriate Responses Assessment/Plan Problem List: (1) LILLI (acute kidney injury) Plan: Patient's creatinine level has improved with improvement in hemodynamics status. Reviewed cardiology notes and apparently the patient is being considered for cardiac catheterization. We'll increase normal saline to 75 MLS per hour overnight to improve his renal indices. Continue to monitor volume status. It is noted that his ejection fraction is impaired at 35-40%. Risk of contrast nephrotoxicity should diminished as hydration status is improved in renal indices improved. Patient advised risk of dialysis probably 1% or less after contrast exposure based on previous baseline creatinine level. Will follow with labs in the AM. Medications should be adjusted for the patient's renal decline. Avoid nephrotoxic medications including NSAIDs and iodinated contrast dyes. Avoid gadolinium when eGFR <30. (2) Atrial fibrillation Plan: Cardiology notes reviewed. (3) Transaminitis Plan: Lipitor been held. Repeat LFTs in the AM. (4) CHF (congestive heart failure) Plan: Currently compensated. (5) Pulmonary nodule Plan: Follow-up per primary care physician. Ayan Brink MD November 09, 2016 17:43
[2016-11-09] MEDS: CARVEDILOL 3.125 MG TAB PO SCH (20:54)
[2016-11-09] MEDS: ATORVASTATIN 10 MG TAB PO SCH (20:55)
[2016-11-10] VITALS (66 sets, daily range): BP systolic 117–174; BP diastolic 63–103; PULSE 45–138; RESP 13–36; TEMP 97.9–98.7; O2SAT 94–98
[2016-11-10] MEDS: CHLORHEXIDINE GLUCONATE 2 % 1 PACK (2 CLOTHS) TOP SCH (04:00)
[2016-11-10 06:57] LABS: HEMATOCRIT 37.3 % (39.0-51.0); MEAN CELL VOLUME 83.3 FL (80.0-100.0); MEAN CORPUSCULAR HEMOGLOBIN 28.5 PG (27.0-34.0); MEAN CORPUSCULAR HGB CONC 34.2 % (32.0-36.0); PLATELET COUNT 126 TH/MM3 (150-450); RED BLOOD COUNT 4.47 MIL/MM3 (4.50-5.90); REVIEW FLAG FINAL; WHITE BLOOD COUNT 10.4 TH/MM3 (4.0-11.0)
[2016-11-10 07:07] LABS: INTERNATIONAL NORMALIZED RATIO 2.5 RATIO; PROTHROMBIN TIME - PATIENT 29.2 SEC (9.8-11.6)
[2016-11-10 07:24] LABS: BICARBONATE 27.4 MEQ/L (21.0-32.0); MAGNESIUM 2.2 MG/DL (1.5-2.5)
[2016-11-10] MEDS: CARVEDILOL 3.125 MG TAB PO SCH ×2 (09:00→21:30)
[2016-11-10] MEDS: ASPIRIN 81 MG CHEW TAB CHEW SCH (09:00)
[2016-11-10] MEDS: SODIUM CHLORIDE 0.9% FLUSH 10 ML FLUSH IV FLUSH SCH ×2 (09:00→21:00)
[2016-11-10] MEDS: PANTOPRAZOLE SODIUM 40 MG VIAL IV SCH (09:00)
[2016-11-10] MEDS: DOCUSATE SODIUM 100 MG CAP PO SCH ×2 (09:00→21:00)
--- NOTE | 2016-11-10 10:17 | HHI.FPPN ---
Subjective Remarks Doing well this morning. Understands he will likely be going for catheterization on Sunday. Denies chest pain, fever, chills, shortness of breath. Urinating without difficulty. Objective Vitals Vital Signs Date Time Temp Pulse Resp B/P Pulse Ox O2 Delivery O2 Flow Rate FiO2 11/10/16 06:00 45 11/10/16 04:00 98.3 50 16 155/75 97 11/10/16 04:00 50 11/10/16 02:00 52 11/10/16 00:00 52 11/10/16 00:00 97.9 52 16 140/97 97 11/09/16 22:47 95 11/09/16 22:00 60 11/09/16 20:00 48 11/09/16 20:00 97.8 48 20 153/72 97 11/09/16 18:00 45 11/09/16 16:00 48 11/09/16 16:00 97.9 48 21 136/75 96 11/09/16 14:00 45 11/09/16 12:00 97.8 51 19 144/68 96 11/09/16 12:00 51 I/O 11/09/16 11/09/16 11/09/16 11/10/16 11/10/16 11/10/16 07:00 15:00 23:00 07:00 15:00 23:00 Intake Total 272 ml 851 ml 653 ml 522 ml Output Total 600 ml 400 ml 225 ml 350 ml Balance -328 ml 451 ml 428 ml 172 ml Intake Oral 0 ml 350 ml 250 ml IV Total 272 ml 501 ml 403 ml 522 ml Output Urine Total 600 ml 400 ml 225 ml 350 ml # Voids 2 # Bowel Movements 0 0 0 0 Result Diagram: 11/10/1661511/10/16615 Objective Remarks GENERAL: WN, WD male sitting up in bed in NAD. SKIN: Warm and dry. HEENT: AT/NC. Pupils equal and round. MMM. NECK: Supple, no JVD. CHEST: Palpable pacemaker left upper chest. HEART: Bradycardic with a regular rhythm. LUNGS: CTAB without wheezes or crackles. ABDOMEN: Soft, NT, ND. EXTREMITIES: No LE edema. NEURO: Awake and alert. PSYCH: Appropriate mood and affect. A/P Assessment and Plan 81-year-old male with history of atrial fibrillation, pacemaker placement, and congestive heart failure. Admitted for NSTEMI and cardiogenic shock. Cardiology, electrophysiology, nephrology, critical care consulted. Currently blood pressure much improved. Supratherapeutic INR, will undergo heart catheterization on Monday 11/13. Pending findings, electrophysiology may help with management. Discharge Planning Unclear at this time. Pending specialist workup. Cardiac catheterization planned for 11/13 Problem List: (1) NSTEMI (non-ST elevated myocardial infarction) Status: Acute Plan: - Cardiology consulted; planning for catheterization likely on Sunday, once INR below 2.0 and LILLI stabilized - EPS also consulted for further evaluation and management of patient's pacemaker since he had both atrial flutter with RVR vs. ventricular tachycardia on presentation - Once INR subtherapeutic, start heparin drip per protocol for NSTEMI. - Carvedilol 3.125 mg by mouth every 12 hours - Morphine PRN chest pain - Monitor on telemetry (2) Cardiomyopathy Status: Acute Plan: CXR on admission showed cardiomegaly with no increased pulmonary congestion. Incidental right pulmonary nodule found that will need to be followed up as an outpatient. - BNP elevated at 697 - Check 2D echo - See further plans above for NSTEMI (3) LILLI (acute kidney injury) Status: Acute Plan: Nephrology consulted - Improved - Avoid nephrotoxic agents - Renally dose medications (4) Transaminitis Status: Acute Plan: LFTs increased to 179 and 222 on admission; slightly improved today. Possibly from organ hypoperfusion during episodes of ventricular tachycardia. - Continue to closely monitor (5) Atrial fibrillation Status: Acute Plan: Patient anticoagulated on Coumadin with supratherapeutic INR of 4.8 on admission. - Hold Coumadin until INR improves - Pacemaker in place and patient with bradycardia down to 40s. EPS consulted for evaluation of pacemaker (6) Supratherapeutic INR Status: Acute Plan: Continue to follow INR Once less than 2.0, start heparin drip (7) FEN/PPX Status: Acute Plan: - Fluids: Gentle IV hydration for LILLI. Caution with fluid overload - Electrolytes: WNL. Monitor and replete as needed - Nutrition: Heart healthy diet - DVT prophylaxis: INR currently supratherapeutic; holding home Coumadin, once INR subtherapeutic, start heparin drip per cardiology - GI prophylaxis: Protonix 40 mg IV daily while in the unit Murtaza Peralta MD R2 November 10, 2016 10:17
[2016-11-10] MEDS ORDERED: METOPROLOL TARTRATE 5 MG/5 ML VIAL ONE (10:29)
[2016-11-10] MEDS ORDERED: METOPROLOL TARTRATE 5 MG/5 ML VIAL IV PUSH ONE (11:00)
[2016-11-10] MEDS ORDERED: AMIODARONE HCL 150 MG/3 ML VIAL ONE (11:04)
[2016-11-10] MEDS ORDERED: AMIODARONE HCL 150 MG/3 ML VIAL IV ONE (11:45)
--- NOTE | 2016-11-10 11:47 | PD.CARD.PN ---
Subjective Subjective Remarks Called for hemodynamically stable ventricular tachycardia No chest pain, no shortness of breath Objective Medications Current Medications Medications (Trade) Dose Ordered Sig/Royce Route Start Time Stop Time Status Last Admin (Morphine Inj) 2 mg Q2H PRN IV 11/08/16 12:00 (Lipitor) 10 mg HS PO 11/08/16 21:00 11/09/16 20:55 (NS Flush) 2 ml UNSCH PRN IV FLUSH 11/08/16 13:00 (NS Flush) 2 ml BID IV FLUSH 11/08/16 21:00 11/10/16 09:00 (Tylenol) 650 mg Q6H PRN PO 11/08/16 13:00 (Protonix Inj) 40 mg DAILY IV 11/09/16 09:00 11/10/16 09:00 (Zofran Inj) 4 mg Q6H PRN IV 11/08/16 13:00 (Colace) 100 mg BID PO 11/08/16 21:00 11/10/16 09:00 (Milk Of Aislinn Licolette) 30 ml Q12H PRN PO 11/08/16 13:00 Miscellaneous Information 1 Q361D XX 11/08/16 13:00 (Chlorhexidine 2% Cloth) 3 pack Taper DAILY@04 TOP 11/09/16 04:00 11/05/17 03:59 11/09/16 04:00 Chlorhexidine Gluconate 3 pack 3 pack UNSCH PRN TOP 11/08/16 13:00 (NS 1000 ml Inj) 1,000 ml @ 50 mls/hr Q20H IV 11/08/16 23:45 11/09/16 18:46 (Aspirin Chew) 81 mg DAILY CHEW 11/09/16 09:00 11/10/16 09:00 Carvedilol 3.125 mg 3.125 mg Q12HR PO 11/09/16 21:00 11/10/16 09:00 (Cordarone Inj/ D5W ([place]) Inj) 250 ml @ 0 mls/hr CONTINUOUS IV 11/10/16 11:30 (Cordarone Inj) 150 mg NOW ONCE IV 11/10/16 11:45 11/10/16 11:46 Vital Signs / I&O Vital Signs Date Time Temp Pulse Resp B/P Pulse Ox O2 Delivery O2 Flow Rate FiO2 11/10/16 06:00 45 11/10/16 04:00 98.3 50 16 155/75 97 11/10/16 04:00 50 11/10/16 02:00 52 11/10/16 00:00 52 11/10/16 00:00 97.9 52 16 140/97 97 11/09/16 22:47 95 11/09/16 22:00 60 11/09/16 20:00 48 11/09/16 20:00 97.8 48 20 153/72 97 11/09/16 18:00 45 11/09/16 16:00 48 11/09/16 16:00 97.9 48 21 136/75 96 11/09/16 14:00 45 11/09/16 12:00 97.8 51 19 144/68 96 11/09/16 12:00 51 I/O 11/09/16 11/09/16 11/09/16 11/10/16 11/10/16 11/10/16 07:00 15:00 23:00 07:00 15:00 23:00 Intake Total 272 ml 851 ml 653 ml 522 ml Output Total 600 ml 400 ml 225 ml 350 ml Balance -328 ml 451 ml 428 ml 172 ml Intake Oral 0 ml 350 ml 250 ml IV Total 272 ml 501 ml 403 ml 522 ml Output Urine Total 600 ml 400 ml 225 ml 350 ml # Voids 2 # Bowel Movements 0 0 0 0 Physical Exam GENERAL: NAD, AAOx3 SKIN: Warm and dry. HEAD: Atraumatic. Normocephalic. EYES: Pupils equal and round. No scleral icterus. No injection or drainage. ENT: No nasal bleeding or discharge. Mucous membranes pink and moist. NECK: Trachea midline. No JVD. CARDIOVASCULAR: Bradycardic RESPIRATORY: No accessory muscle use. Clear to auscultation bilaterally GASTROINTESTINAL: Abdomen soft, non-tender, nondistended. Hepatic and splenic margins not palpable. MUSCULOSKELETAL: Extremities without clubbing, cyanosis, or edema. No obvious deformities. NEUROLOGICAL: Awake and alert. No obvious cranial nerve deficits. Motor grossly within normal limits. Five out of 5 muscle strength in the arms and legs. Normal speech. PSYCHIATRIC: Appropriate mood and affect; insight and judgment normal. Laboratory Laboratory Tests Test 11/10/16 06:16 White Blood Count 10.4 TH/MM3 Red Blood Count 4.47 MIL/MM3 Hemoglobin 12.7 GM/DL Hematocrit 37.3 % Mean Corpuscular Volume 83.3 FL Mean Corpuscular Hemoglobin 28.5 PG Mean Corpuscular Hemoglobin 34.2 % Concent Red Cell Distribution Width 14.0 % Platelet Count 126 TH/MM3 Mean Platelet Volume 9.5 FL Prothrombin Time 29.2 SEC Prothromb Time International 2.5 RATIO Ratio Sodium Level 141 MEQ/L Potassium Level 4.0 MEQ/L Chloride Level 107 MEQ/L Carbon Dioxide Level 27.4 MEQ/L Anion Gap 7 MEQ/L Blood Urea Nitrogen 38 MG/DL Creatinine 1.37 MG/DL Estimat Glomerular Filtration 50 ML/MIN Rate Random Glucose 134 MG/DL Calcium Level 8.4 MG/DL Phosphorus Level 2.6 MG/DL Magnesium Level 2.2 MG/DL Assessment and Plan Problem List: (1) NSTEMI (non-ST elevated myocardial infarction) (2) Ventricular tachycardia (3) Cardiomyopathy (4) Transaminitis (5) Bradycardia (6) Cardiogenic shock (7) Supratherapeutic INR (8) LILLI (acute kidney injury) (9) Atrial fibrillation Assessment and Plan 1) Presented with general weakness and chest tightness, found to be in ventricular tachycardia with multiple episodes over the past few days Cause may be primary ischemia vs dehydration leading to hyperfusion/ hypotension leading to ischemia 2) NSTEMI possible Type 1 vs 2 3) Baseline PPM at 45 bpm, which may induce possible VT... [employer] rep to change rate to 60 bpm 4) LILLI, light hydration, will need to continue to follow 5) Supratherapeutic INR due to hepatic congestion, continue to follow, no bleeding noted 6) Due to elevated troponin and ventricular tachycardia, recommended cardiac catheterization, most likely next week after medical recovery of kidney function /INR Discussed extensively with Herbert, but is hesitant about catheterization, he will think about it, but if it is necessary then he will proceed Current VT (11/10) given Amiodarone 150mg IV and started on an Amiodarone drip , currently stable, will change PPM rate to 60 bpm If stable, would hold off on catheterization with current kidney function and INR Trino De La Cruz DO November 10, 2016 11:47
--- NOTE | 2016-11-10 11:58 | EKG ---
Date Performed: 11/10/2016 Time Performed: 10:40:12 PTAGE: 81 years EKG: Wide-complex tachycardia of unclear etiology. This is new compared to prior electrocardiog carlos. PREVIOUS TRACING : 11/08/2016 13.54 DOCTOR: Julian Lima Interpretating Date/Time 11/10/2016 11:57:43
--- NOTE | 2016-11-10 14:29 | HHI.NPPN ---
Subjective History of Present Illness The patient is an 81 yo [place] male who presented to this facility 11/08/16 with complaints of 2 days of chest discomfort, diarrhea x8, decreased UOP, and diaphoresis. He is in the process of moving from [place] and thought initially related to stress of that, but when symptoms persisted, decided to come to ED for evaluation. He has a PMHx of persistent atrial fibrillation for which he had pacer placed, CHF (unsure of EF), and HTN. He is unaware of any previous renal issues (contacted his PCP Dr. Campbell in [place] who reported last SCr was 1.12 Nov 2015). Denies any NSAID use in the recent past. Despite feeling bad, continued to take home medications which include Lisinopril 5mg QD, Furosemide 40mg BID, Coreg 25mg BID, and Atorvastatin. On arrival, suspicion was for AAA so an emergent US was done that showed no dissection. CXR showed no vascular congestion. Was found that he was in atrial flutter with RVR with HR in 160s. At the present, says he is feeling much better. BP has improved (was systolically in the 60s at one point) to systolic of 100mmHg, and now HR in the 40s. Awaiting consultation with physical therapy manager for pacer interrogation and likely adjustment. Admitting SCr of 3.64, eGFR 16, K 4.6, CO2 21, WBC 16.4, Hgb 16.7, elevated LFTs , elevated troponins but not trending, UA overall bland. Interval History Pt feeling OK today. Had another run of VT today. Cards on board and potential cath soon. Held today as INR elevated (Mindy Dobbs) Objective Data Data 11/09/16 11/10/16 19:00 07:00 Intake Total 851 ml 1175 ml Output Total 400 ml 575 ml Balance 451 ml 600 ml Intake Oral 350 ml 250 ml IV Total 501 ml 925 ml Output Urine Total 400 ml 575 ml # Voids 2 # Bowel Movements 0 0 Vital Signs Date Time Temp Pulse Resp B/P Pulse Ox O2 Delivery O2 Flow Rate FiO2 11/10/16 12:00 133 11/10/16 06:00 45 11/10/16 04:00 98.3 50 16 155/75 97 11/10/16 04:00 50 11/10/16 02:00 52 11/10/16 00:00 52 11/10/16 00:00 97.9 52 16 140/97 97 11/09/16 22:47 95 11/09/16 22:00 60 11/09/16 20:00 48 11/09/16 20:00 97.8 48 20 153/72 97 11/09/16 18:00 45 11/09/16 16:00 48 11/09/16 16:00 97.9 48 21 136/75 96 (Mindy Dobbs) -: 11/10/16 0616 11/10/16 0616 Imaging Last Impressions Chest X-Ray 11/08/16 0931 Signed Impressions: Service Date/Time: Tuesday, November 08, 2016 09:33 - CONCLUSION: 1. Small nodule projects over the right lower lobe. Nonemergent CT chest recommended. 2. Cardiomegaly and left-sided pacemaker. Brandon Martinez MD Renal Ultrasound 11/08/16 0000 Signed Impressions: Service Date/Time: Tuesday, November 08, 2016 17:38 - CONCLUSION: Left renal cyst. No hydronephrosis. Goldy Palacios MD Aorta Ultrasound 11/08/16 0000 Signed Impressions: Service Date/Time: Tuesday, November 08, 2016 11:57 - CONCLUSION: Negative for abdominal aortic aneurysm. The left renal artery is not visualized. Oneil Wu MD FACR Medication Review Current Medications Medications (Trade) Dose Ordered Sig/Royce Route Start Time Stop Time Status Last Admin (Morphine Inj) 2 mg Q2H PRN IV 11/08/16 12:00 (Lipitor) 10 mg HS PO 11/08/16 21:00 11/09/16 20:55 (NS Flush) 2 ml UNSCH PRN IV FLUSH 11/08/16 13:00 (NS Flush) 2 ml BID IV FLUSH 11/08/16 21:00 11/10/16 09:00 (Tylenol) 650 mg Q6H PRN PO 11/08/16 13:00 (Protonix Inj) 40 mg DAILY IV 11/09/16 09:00 11/10/16 09:00 (Zofran Inj) 4 mg Q6H PRN IV 11/08/16 13:00 (Colace) 100 mg BID PO 11/08/16 21:00 11/10/16 09:00 (Milk Of Aislinn Liq) 30 ml Q12H PRN PO 11/08/16 13:00 Miscellaneous Information 1 Q361D XX 11/08/16 13:00 (Chlorhexidine 2% Cloth) 3 pack Taper DAILY@04 TOP 11/09/16 04:00 11/05/17 03:59 11/09/16 04:00 Chlorhexidine Gluconate 3 pack 3 pack UNSCH PRN TOP 11/08/16 13:00 (NS 1000 ml Inj) 1,000 ml @ 50 mls/hr Q20H IV 11/08/16 23:45 11/09/16 18:46 (Aspirin Chew) 81 mg DAILY CHEW 11/09/16 09:00 11/10/16 09:00 Carvedilol 3.125 mg 3.125 mg Q12HR PO 11/09/16 21:00 11/10/16 09:00 (Cordarone Inj/ D5W ([place]) Inj) 250 ml @ 0 mls/hr CONTINUOUS IV 11/10/16 11:30 (Mindy Dobbs) Physical Exam General Appearance: No Acute Distress, Comfortable (Mindy Dobbs) Eyes Eye Exam: Sclera White (Mindy Dobbs) Neck Neck Exam: Trachea Midline (Mindy Dobbs) Pulmonary Resp Exam: Clear Bilaterally, Breath Sounds Equal, No Distress (Mindy Dobbs) Cardiology CV Exam: Regular, Normal Sinus Rhythm, Good Perfusion (Mindy Dobbs) Gastrointestinal/Abdomen GI Exam: Soft, Non-Tender (Mindy Dobbs) Integumentary Skin Exam: Clear, Warm, Dry (Mindy Dobbs) Extremeties Extremities Exam: No Edema (Mindy Dobbs) Neurologic Neuro Exam: Alert, Awake, Speech Clear, Moving All Extremities (Mindy Dobbs) Psychiatric Psych Exam: Appropriate Responses (Mindy Dobbs) Assessment/Plan Problem List: (1) LILLI (acute kidney injury) Plan: Patient's creatinine level has improved with improvement in hemodynamic status. Continue on IVF and monitor for an signs of fluid retention given EF of 35-40%. Risk of contrast nephrotoxicity should diminished as hydration status is improved in renal indices improved. Patient advised risk of dialysis probably 1 % or less after contrast exposure based on previous baseline creatinine level. Will continue to follow. Medications should be adjusted for the patient's renal decline. Avoid nephrotoxic medications including NSAIDs and iodinated contrast dyes. Avoid gadolinium when eGFR <30. (2) Atrial fibrillation Plan: Cardiology notes reviewed. (3) Transaminitis Plan: Likely hemodynamic Continue to monitor. (4) CHF (congestive heart failure) Plan: Currently compensated. (5) Pulmonary nodule Plan: Follow-up per primary care physician. (Mindy Dobbs) Plan Patient creatinine level continues to improve as indicated above. Risk of contrast nephrotoxicity relatively low at this point and patient is clear for cardiac catheterization as long as patient accepts small risk of renal failure less than 1% in my opinion which could result in need for dialysis. At this point in time patient will be seen when necessary. The exam, history, and the medical decision-making described in the above note were completed with the assistance of the LOUISE. I reviewed and agree with the findings presented. I attest that I had a [id number] encounter with the patient on the same day, and personally performed and documented my assessment and findings in the medical record. (Ayan Brink MD) Mindy Dobbs November 10, 2016 14:29 Ayan Brink MD November 10, 2016 16:43
[2016-11-10] MEDS: SODIUM CHLOR 0.9% 1000 ML INJ 1,000 ML IV SCH (15:45)
[2016-11-10 16:05] LABS: INDIRECT BILIRUBIN 0.9 MG/DL (0.0-0.8); TOTAL BILIRUBIN ADULT 1.2 MG/DL (0.2-1.0)
[2016-11-10] MEDS: AMIODARONE INJ 450 MG in D5W (EXCEL BAG) 241 ML IV SCH (18:54)
[2016-11-10] MEDS: ATORVASTATIN 10 MG TAB PO SCH (21:31)
[2016-11-11] VITALS (11 sets, daily range): BP systolic 145–159; BP diastolic 80–98; PULSE 59–60; RESP 24–33; TEMP 98.4–99.3; O2SAT 94–97
[2016-11-11] MEDS: CHLORHEXIDINE GLUCONATE 2 % 1 PACK (2 CLOTHS) TOP SCH ×2 (04:00→22:36)
[2016-11-11 05:36] LABS: AUTOMATED NEUTROPHIL # 10.8 TH/MM3 (1.8-7.7); BASOPHIL # 0.1 TH/MM3 (0-0.2); BASOPHIL % 0.4 % (0.0-2.0); EOSINOPHIL # 0.1 TH/MM3 (0-0.4); EOSINOPHIL % 0.7 % (0.0-4.0); HEMATOCRIT 42.3 % (39.0-51.0); HEMO FLAGS DIFF FINAL; LYMPH % 11.7 % (9.0-44.0); LYMPHOCYTE # 1.6 TH/MM3 (1.0-4.8); MEAN CELL VOLUME 84.2 FL (80.0-100.0); MEAN CORPUSCULAR HEMOGLOBIN 27.8 PG (27.0-34.0); MONO % 10.6 % (0.0-8.0); NEUT % 76.6 % (16.0-70.0); PLATELET COUNT 148 TH/MM3 (150-450); RED BLOOD COUNT 5.02 MIL/MM3 (4.50-5.90); RED CELL DISTRIBUTION WIDTH 14.3 % (11.6-17.2); WHITE BLOOD COUNT 14.1 TH/MM3 (4.0-11.0)
[2016-11-11 05:43] LABS: INTERNATIONAL NORMALIZED RATIO 2.3 RATIO; PROTHROMBIN TIME - PATIENT 26.5 SEC (9.8-11.6)
[2016-11-11 05:57] LABS: ALKALINE PHOSPHATASE 75 U/L (45-117); ALT (GPT) 134 U/L (12-78); ANION GAP 7 MEQ/L (5-15); AST (GOT) 50 U/L (15-37); BICARBONATE 24.8 MEQ/L (21.0-32.0); BLOOD UREA NITROGEN 30 MG/DL (7-18); CHLORIDE 107 MEQ/L (98-107); GLOMERULAR FILTRATION RATE 56 ML/MIN (>89); MAGNESIUM 2.1 MG/DL (1.5-2.5); POTASSIUM 4.2 MEQ/L (3.5-5.1); SODIUM (NA) 139 MEQ/L (136-145); TOTAL BILIRUBIN ADULT 2.1 MG/DL (0.2-1.0)
--- NOTE | 2016-11-11 07:38 | HHI.FPPN ---
Subjective Remarks Patient seen and examined this am. Vitals including HR have been stable since around 11 am yest. He did have some intermittent tachypnea overnight. Breathing without difficulty. Denies active CP. Wants to get out of bed and walk around but is on bed rest. Endorses some abdominal discomfort. Per nurse there were no overnight events. Objective Vitals Vital Signs Date Time Temp Pulse Resp B/P Pulse Ox O2 Delivery O2 Flow Rate FiO2 11/11/16 06:00 59 11/11/16 04:00 98.4 60 27 147/88 94 11/11/16 04:00 60 11/11/16 02:00 60 11/11/16 00:00 98.4 60 32 156/98 96 11/11/16 00:00 60 11/10/16 23:00 60 28 145/79 94 11/10/16 22:00 60 11/10/16 22:00 60 20 152/92 96 11/10/16 21:00 59 23 143/84 96 11/10/16 20:07 95 Nasal Cannula 1.00 11/10/16 20:00 59 11/10/16 20:00 98.2 59 30 140/86 95 11/10/16 18:24 72 11/10/16 17:00 60 23 137/83 96 11/10/16 16:38 73 11/10/16 16:30 59 22 96 11/10/16 16:00 98.7 60 21 140/78 96 11/10/16 15:30 60 29 97 11/10/16 15:00 60 13 135/75 97 11/10/16 14:45 59 21 133/82 96 11/10/16 14:30 60 23 134/79 97 11/10/16 14:00 62 11/10/16 12:45 62 24 97 11/10/16 12:40 59 15 127/76 97 11/10/16 12:31 98.0 55 18 130/84 97 11/10/16 12:30 61 20 98 11/10/16 12:23 52 23 139/73 98 11/10/16 12:20 49 14 129/63 98 11/10/16 12:18 51 23 136/67 98 11/10/16 12:15 83 13 133/65 97 11/10/16 12:00 133 11/10/16 12:00 46 14 95 11/10/16 11:59 53 14 159/69 96 11/10/16 11:53 129 14 128/92 96 11/10/16 11:45 55 14 96 11/10/16 11:40 58 15 172/75 95 11/10/16 11:35 52 14 149/70 95 11/10/16 11:33 51 16 140/66 96 11/10/16 11:30 129 17 135/86 96 11/10/16 11:28 122 20 136/96 95 11/10/16 11:25 130 16 132/90 95 11/10/16 11:23 123 14 136/79 95 11/10/16 11:20 57 15 143/78 96 11/10/16 11:18 122 15 127/84 96 11/10/16 11:16 59 13 132/95 94 11/10/16 11:15 55 14 95 11/10/16 11:13 62 17 142/71 95 11/10/16 11:10 63 16 134/75 96 11/10/16 11:08 70 22 117/63 94 11/10/16 11:07 133 16 126/80 95 11/10/16 11:00 135 16 126/83 96 11/10/16 10:45 135 20 131/78 95 11/10/16 10:35 136 14 122/72 95 11/10/16 10:30 138 14 136/74 95 11/10/16 10:19 138 28 125/74 95 11/10/16 10:15 137 29 95 11/10/16 10:00 62 27 133/65 95 11/10/16 09:52 67 25 174/65 96 11/10/16 09:45 65 36 96 11/10/16 09:31 63 24 163/103 94 11/10/16 09:30 60 26 94 11/10/16 09:15 62 30 95 11/10/16 09:00 53 29 147/78 95 11/10/16 08:45 57 20 96 11/10/16 08:30 55 22 165/71 96 11/10/16 08:15 47 21 96 11/10/16 08:00 49 22 136/67 94 11/10/16 07:45 49 26 94 11/10/16 07:30 47 21 152/67 97 I/O 11/10/16 11/10/16 11/10/16 11/11/16 11/11/16 11/11/16 07:00 15:00 23:00 07:00 15:00 23:00 Intake Total 522 ml 1022 ml 1729 ml 588 ml Output Total 350 ml 1100 ml 140 ml 180 ml Balance 172 ml -78 ml 1589 ml 408 ml Intake Oral 250 ml 250 ml IV Total 522 ml 772 ml 1479 ml 588 ml Output Urine Total 350 ml 1100 ml 140 ml 180 ml # Bowel Movements 0 0 0 0 Result Diagram: 11/11/166 11/11/166 Imaging Last Impressions Chest X-Ray 11/08/1631 Signed Impressions: Service Date/Time: Tuesday, November 08, 2016 09:33 - CONCLUSION: 1. Small nodule projects over the right lower lobe. Nonemergent CT chest recommended. 2. Cardiomegaly and left-sided pacemaker. Brandon Martinez MD Renal Ultrasound 11/08/16 0000 Signed Impressions: Service Date/Time: Tuesday, November 08, 2016 17:38 - CONCLUSION: Left renal cyst. No hydronephrosis. Goldy Palacios MD Aorta Ultrasound 11/08/16 0000 Signed Impressions: Service Date/Time: Tuesday, November 08, 2016 11:57 - CONCLUSION: Negative for abdominal aortic aneurysm. The left renal artery is not visualized. Oneil Wu MD FACR Objective Remarks GENERAL: WN, WD male sitting up in bed in [facility]. SKIN: Warm and dry. HEENT: AT/NC. Pupils equal and round. MMM. NECK: Supple, no JVD. CHEST: Palpable pacemaker left upper chest. HEART: Bradycardic with a regular rhythm. LUNGS: CTAB without wheezes or crackles. ABDOMEN: Soft, NT, ND. EXTREMITIES: No LE edema. NEURO: Awake and alert. PSYCH: Appropriate mood and affect. A/P Assessment and Plan 81-year-old male with history of atrial fibrillation, pacemaker placement, and congestive heart failure. Admitted for NSTEMI and cardiogenic shock. Cardiology, electrophysiology, nephrology, critical care consulted. Currently blood pressure much improved. Supratherapeutic INR, will undergo heart catheterization on Monday 11/13. Pending findings, electrophysiology may help with management. Discharge Planning Unclear at this time. Pending specialist workup. Cardiac catheterization planned for 11/13, NPO sunday night. Discussed with Dr. Parker Problem List: (1) NSTEMI (non-ST elevated myocardial infarction) Status: Acute Plan: - Cardiology consulted; planning for catheterization likely on Sunday, once INR below 2.0 and LILLI stabilized - EPS consulted for further evaluation and management of patient's pacemaker since he had both atrial flutter with RVR vs. ventricular tachycardia on presentation (s/p interrogation) - Once INR subtherapeutic (,2), start heparin drip per protocol for NSTEMI. - Carvedilol 3.125 mg by mouth every 12 hours - Morphine PRN chest pain - Monitor on telemetry (2) Cardiomyopathy Status: Acute Plan: CXR on admission showed cardiomegaly with no increased pulmonary congestion. - BNP elevated at 697 on admission - 2D echo: EF 35-40%, normal wall motion, moderate mitral valve regurgitation, mild tricuspid regurg - See further plans above for NSTEMI History Incidental right pulmonary nodule found that will need to be followed up as an outpatient. (3) Atrial fibrillation Status: Acute Plan: Patient anticoagulated on Coumadin with supratherapeutic INR of 4.8 on admission. - Coumadin on hold for cath - the patient had multiple episodes of VT on 11/10; pacemaker was changed to 60 bpm, he was placed on amiodarone drip. Plan for cath Sunday if stable, NPO at midnight on Sunday, INR <2 place on heparin drip. (4) LILLI (acute kidney injury) Status: Acute Plan: Nephrology consulted - Improved - Avoid nephrotoxic agents - Renally dose medications (5) Transaminitis Status: Acute Plan: LFTs increased to 179 and 222 on admission; continues to improve. Possibly from organ hypoperfusion during episodes of ventricular tachycardia. - Continue to closely monitor (6) Supratherapeutic INR Status: Acute Plan: Continue to follow INR Once less than 2.0, start heparin drip (7) FEN/PPX Status: Acute Plan: - Fluids: Gentle IV hydration for LILLI. Caution with fluid overload - Electrolytes: WNL. Monitor and replete as needed - Nutrition: Heart healthy diet - DVT prophylaxis: INR currently supratherapeutic; holding home Coumadin, once INR subtherapeutic, start heparin drip per cardiology - GI prophylaxis: Protonix 40 mg IV daily while in the unit Marilu Gonzalez MD R3 November 11, 2016 07:38
[2016-11-11] MEDS: SODIUM CHLORIDE 0.9% FLUSH 10 ML FLUSH IV FLUSH SCH ×2 (09:00→20:06)
[2016-11-11] MEDS: ASPIRIN 81 MG CHEW TAB CHEW SCH (09:00)
[2016-11-11] MEDS: PANTOPRAZOLE SODIUM 40 MG VIAL IV SCH (09:50)
[2016-11-11] MEDS: CARVEDILOL 3.125 MG TAB PO SCH ×2 (09:51→20:06)
[2016-11-11] MEDS: DOCUSATE SODIUM 100 MG CAP PO SCH ×2 (09:51→20:05)
--- NOTE | 2016-11-11 14:13 | PD.CARD.PN ---
Subjective Subjective Remarks Patient has no complaints except he wants to be OOB. Denies CP or SOB. He believes he is for cath Sunday but Dr. De La Cruz is OOT and he is not on the cath schedule. Objective Medications Current Medications Medications (Trade) Dose Ordered Sig/Royce Route Start Time Stop Time Status Last Admin (Morphine Inj) 2 mg Q2H PRN IV 11/08/16 12:00 (Lipitor) 10 mg HS PO 11/08/16 21:00 11/10/16 21:31 (NS Flush) 2 ml UNSCH PRN IV FLUSH 11/08/16 13:00 (NS Flush) 2 ml BID IV FLUSH 11/08/16 21:00 11/11/16 09:00 (Tylenol) 650 mg Q6H PRN PO 11/08/16 13:00 (Protonix Inj) 40 mg DAILY IV 11/09/16 09:00 11/11/16 09:50 (Zofran Inj) 4 mg Q6H PRN IV 11/08/16 13:00 (Colace) 100 mg BID PO 11/08/16 21:00 11/11/16 09:51 (Milk Of Magnesia Liq) 30 ml Q12H PRN PO 11/08/16 13:00 Miscellaneous Information 1 Q361D XX 11/08/16 13:00 (Chlorhexidine 2% Cloth) 3 pack Taper DAILY@04 TOP 11/09/16 04:00 11/05/17 03:59 11/11/16 04:00 Chlorhexidine Gluconate 3 pack 3 pack UNSCH PRN TOP 11/08/16 13:00 (NS 1000 ml Inj) 1,000 ml @ 50 mls/hr Q20H IV 11/08/16 23:45 11/10/16 15:45 (Aspirin Chew) 81 mg DAILY CHEW 11/09/16 09:00 11/11/16 09:00 Carvedilol 3.125 mg 3.125 mg Q12HR PO 11/09/16 21:00 11/11/16 09:51 (Cordarone Inj/ D5W ([place]) Inj) 250 ml @ 0 mls/hr CONTINUOUS IV 11/10/16 11:30 11/10/16 18:54 Vital Signs / I&O Vital Signs Date Time Temp Pulse Resp B/P Pulse Ox O2 Delivery O2 Flow Rate FiO2 11/11/16 10:00 60 11/11/16 08:07 95 Nasal Cannula 1.00 11/11/16 08:00 59 11/11/16 08:00 98.4 60 24 145/88 94 11/11/16 06:00 59 11/11/16 04:00 98.4 60 27 147/88 94 11/11/16 04:00 60 11/11/16 02:00 60 11/11/16 00:00 98.4 60 32 156/98 96 11/11/16 00:00 60 11/10/16 23:00 60 28 145/79 94 11/10/16 22:00 60 11/10/16 22:00 60 20 152/92 96 11/10/16 21:00 59 23 143/84 96 11/10/16 20:07 95 Nasal Cannula 1.00 11/10/16 20:00 59 11/10/16 20:00 98.2 59 30 140/86 95 11/10/16 18:24 72 11/10/16 17:00 60 23 137/83 96 11/10/16 16:38 73 11/10/16 16:30 59 22 96 11/10/16 16:00 98.7 60 21 140/78 96 11/10/16 15:30 60 29 97 11/10/16 15:00 60 13 135/75 97 11/10/16 14:45 59 21 133/82 96 11/10/16 14:30 60 23 134/79 97 11/10/16 14:00 62 I/O 11/10/16 11/10/16 11/10/16 11/11/16 11/11/16 11/11/16 06:59 14:59 22:59 06:59 14:59 22:59 Intake Total 522 ml 1022 ml 1729 ml 588 ml Output Total 350 ml 1100 ml 140 ml 180 ml Balance 172 ml -78 ml 1589 ml 408 ml Intake Oral 250 ml 250 ml IV Total 522 ml 772 ml 1479 ml 588 ml Output Urine Total 350 ml 1100 ml 140 ml 180 ml # Bowel Movements 0 0 0 0 Physical Exam HEENTN: negative Lungs: Clear but deminished at bases. CV: wnl. No gallops or murmurs. Abd: No tenderness. BS wnl Ext: No edema. Normal capillary refill. Neuro: No focal findings. Laboratory Laboratory Tests Test 11/11/16 04:16 White Blood Count 14.1 TH/MM3 Red Blood Count 5.02 MIL/MM3 Hemoglobin 13.9 GM/DL Hematocrit 42.3 % Mean Corpuscular Volume 84.2 FL Mean Corpuscular Hemoglobin 27.8 PG Mean Corpuscular Hemoglobin 33.0 % Concent Red Cell Distribution Width 14.3 % Platelet Count 148 TH/MM3 Mean Platelet Volume 10.0 FL Neutrophils (%) (Auto) 76.6 % Lymphocytes (%) (Auto) 11.7 % Monocytes (%) (Auto) 10.6 % Eosinophils (%) (Auto) 0.7 % Basophils (%) (Auto) 0.4 % Neutrophils # (Auto) 10.8 TH/MM3 Lymphocytes # (Auto) 1.6 TH/MM3 Monocytes # (Auto) 1.5 TH/MM3 Eosinophils # (Auto) 0.1 TH/MM3 Basophils # (Auto) 0.1 TH/MM3 CBC Comment DIFF FINAL Differential Comment Prothrombin Time 26.5 SEC Prothromb Time International 2.3 RATIO Ratio Sodium Level 139 MEQ/L Potassium Level 4.2 MEQ/L Chloride Level 107 MEQ/L Carbon Dioxide Level 24.8 MEQ/L Anion Gap 7 MEQ/L Blood Urea Nitrogen 30 MG/DL Creatinine 1.24 MG/DL Estimat Glomerular Filtration 56 ML/MIN Rate Random Glucose 154 MG/DL Calcium Level 8.2 MG/DL Magnesium Level 2.1 MG/DL Total Bilirubin 2.1 MG/DL Aspartate Amino Transf 50 U/L (AST/SGOT) Alanine Aminotransferase 134 U/L (ALT/SGPT) Alkaline Phosphatase 75 U/L Total Protein 6.4 GM/DL Albumin 3.2 GM/DL Assessment and Plan Problem List: (1) NSTEMI (non-ST elevated myocardial infarction) Assessment and Plan: Patient is presumably for cath Sunday but I do not see where this is arranged. Will reach out to interventionalist english composition teacher for group. His CAD is stable and troponin rise may simply reflect low perfussion. (2) Ventricular tachycardia Assessment and Plan: EKG from yesterday looks more like SVT and was assymptomatic. Continue amioderone. Will need EP evaluation with possable device upgrade once CAD situation claified. (3) Cardiomyopathy (4) Transaminitis (5) Bradycardia Assessment and Plan: Improved (6) Cardiogenic shock Assessment and Plan: Improved (7) Supratherapeutic INR Assessment and Plan: Improving but watch on amioderone. (8) LILLI (acute kidney injury) Assessment and Plan: Improved (9) Atrial fibrillation Assessment and Plan: Chronic and rate controlled. Will need anticoagulation coverage once INR better. Problem Qualifiers (1) Atrial fibrillation: Qualified Code: I48.2 - Chronic atrial fibrillation Yancy Vera MD November 11, 2016 14:13
[2016-11-11] MEDS ORDERED: CALCIUM CARBONATE 500 MG CHEWABLE TAB CHEW ONE (20:00)
[2016-11-11] MEDS: ATORVASTATIN 10 MG TAB PO SCH (20:05)
[2016-11-11] MEDS: AMIODARONE INJ 450 MG in D5W (EXCEL BAG) 241 ML IV SCH (23:28)
[2016-11-12] VITALS (44 sets, daily range): BP systolic 127–244; BP diastolic 64–115; PULSE 59–108; RESP 22–40; TEMP 98–98.9; O2SAT 94–100
[2016-11-12 05:05] LABS: AUTOMATED NEUTROPHIL # 9.5 TH/MM3 (1.8-7.7); BASOPHIL # 0.1 TH/MM3 (0-0.2); BASOPHIL % 0.5 % (0.0-2.0); EOSINOPHIL # 0.1 TH/MM3 (0-0.4); EOSINOPHIL % 0.9 % (0.0-4.0); HEMATOCRIT 38.2 % (39.0-51.0); HEMO FLAGS DIFF FINAL; LYMPH % 12.3 % (9.0-44.0); LYMPHOCYTE # 1.6 TH/MM3 (1.0-4.8); MEAN CELL VOLUME 84.2 FL (80.0-100.0); MEAN CORPUSCULAR HEMOGLOBIN 28.4 PG (27.0-34.0); MEAN CORPUSCULAR HGB CONC 33.7 % (32.0-36.0); MONO % 12.1 % (0.0-8.0); NEUT % 74.2 % (16.0-70.0); PLATELET COUNT 137 TH/MM3 (150-450); RED BLOOD COUNT 4.54 MIL/MM3 (4.50-5.90); RED CELL DISTRIBUTION WIDTH 14.3 % (11.6-17.2); WHITE BLOOD COUNT 12.9 TH/MM3 (4.0-11.0)
[2016-11-12 05:08] LABS: BICARBONATE 25.8 MEQ/L (21.0-32.0); POTASSIUM 4.3 MEQ/L (3.5-5.1)
[2016-11-12 05:11] LABS: INTERNATIONAL NORMALIZED RATIO 1.8 RATIO; PROTHROMBIN TIME - PATIENT 20.3 SEC (9.8-11.6)
[2016-11-12] MEDS ORDERED: HEPARIN SODIUM - IV 10,000 UNITS/10 ML VIAL IV ONE (07:15)
[2016-11-12] MEDS: HEPARIN-D5W INJ 250 ML IV SCH (08:05)
[2016-11-12] MEDS: cefTRIAXone INJ 1,000 MG in SODIUM CHLORIDE 0.9% INJ 100 ML IV SCH (08:06)
[2016-11-12] MEDS: ASPIRIN 81 MG CHEW TAB CHEW SCH (08:06)
[2016-11-12] MEDS: CARVEDILOL 3.125 MG TAB PO SCH ×2 (08:07→20:23)
[2016-11-12] MEDS: DOCUSATE SODIUM 100 MG CAP PO SCH ×2 (08:07→20:24)
[2016-11-12] MEDS: PANTOPRAZOLE SODIUM 40 MG VIAL IV SCH (08:08)
--- NOTE | 2016-11-12 09:03 | HHI.FPPN ---
Subjective Remarks Patient is doing well this morning. No complaint of this time. He is getting out of bed to the chair as appropriate. Denies chest pain, nausea, vomiting, shortness of breath. Objective Vitals Vital Signs Date Time Temp Pulse Resp B/P Pulse Ox O2 Delivery O2 Flow Rate FiO2 11/12/16 07:57 98.5 59 22 132/71 97 11/12/16 06:00 59 11/12/16 05:00 59 96 11/12/16 05:00 59 11/12/16 04:01 98.6 59 131/68 94 11/12/16 04:00 59 94 11/12/16 03:00 59 142/77 95 11/12/16 02:00 60 136/80 96 11/12/16 02:00 60 11/12/16 01:00 59 146/80 95 11/12/16 00:00 60 142/80 94 11/12/16 00:00 98.9 60 142/80 94 11/12/16 00:00 60 11/11/16 22:00 60 11/11/16 21:00 60 33 156/85 95 11/11/16 20:28 97 Nasal Cannula 2.00 11/11/16 20:00 99.3 60 29 159/80 97 11/11/16 20:00 60 11/11/16 10:00 60 I/O 11/11/16 11/11/16 11/11/16 11/12/16 11/12/16 11/12/16 06:59 14:59 22:59 06:59 14:59 22:59 Intake Total 588 ml 736 ml 140 ml Output Total 180 ml 800 ml 700 ml Balance 408 ml -64 ml -560 ml Intake Oral 600 ml IV Total 588 ml 136 ml 140 ml Output Urine Total 180 ml 800 ml 700 ml # Bowel Movements 0 Result Diagram: 11/12/1640511/12/16405 Objective Remarks GENERAL: WN, WD male sitting up in bed in NAD. SKIN: Warm and dry. HEENT: AT/NC. Pupils equal and round. MMM. NECK: Supple, no JVD. CHEST: Palpable pacemaker left upper chest. HEART: Bradycardic with a regular rhythm. LUNGS: CTAB without wheezes or crackles. ABDOMEN: Soft, NT, ND. EXTREMITIES: No LE edema. NEURO: Awake and alert. PSYCH: Appropriate mood and affect. A/P Assessment and Plan 81-year-old male with history of atrial fibrillation, pacemaker placement, and congestive heart failure. Admitted for NSTEMI and cardiogenic shock. Cardiology, electrophysiology, nephrology, critical care consulted. Currently much improved. Plan for cardiac catheter on 11/13. Pending findings, electrophysiology may help with management. Discharge Planning Unclear at this time. Pending specialist workup. Cardiac catheterization planned for 11/13, NPO sunday night. Discussed with Dr. Parker Problem List: (1) NSTEMI (non-ST elevated myocardial infarction) Status: Acute Plan: - Cardiology consulted; planning for catheterization likely on Sunday - EPS consulted for further evaluation and management of patient's pacemaker since he had both atrial flutter with RVR vs. ventricular tachycardia on presentation (s/p interrogation) -Heparin drip initiated for NSTEMI - Carvedilol 3.125 mg by mouth every 12 hours - Morphine PRN chest pain - Monitor on telemetry (2) Cardiomyopathy Status: Acute Plan: - BNP elevated at 697 on admission - 2D echo: EF 35-40%, normal wall motion, moderate mitral valve regurgitation, mild tricuspid regurg - See further plans above for NSTEMI History Incidental right pulmonary nodule found that will need to be followed up as an outpatient with a CT scan. (3) UTI (urinary tract infection) Status: Acute Plan: Urine micro-growing Escherichia coli. Pansensitive Ceftriaxone initiated 11/12 (4) Atrial fibrillation Status: Acute Plan: Cardiology consulted. - Continue Coreg 6.25 by mouth every 12 hours. - Continue amiodarone drip, per cardiology - Coumadin on hold for cath - Heparin drip as above. (5) LILLI (acute kidney injury) Status: Resolved Plan: Nephrology consulted -Resolved - Avoid nephrotoxic agents - Renally dose medications (6) Transaminitis Status: Acute Plan: Downtrending/improving. Likely secondary to hypoperfusion from cardiogenic shock. -Continue to monitor (7) FEN/PPX Status: Acute Plan: - Fluids: Currently on 50 mL's per hour normal saline. - Electrolytes: WNL. Monitor and replete as needed - Nutrition: Heart healthy diet. Nothing by mouth at midnight for expected procedure tomorrow - DVT prophylaxis: Heparin drip initiated as above. - GI prophylaxis: Protonix 40 mg IV daily while in the unit Problem Qualifiers (1) Atrial fibrillation: Qualified Code: I48.2 - Chronic atrial fibrillation Murtaza Peralta MD R2 November 12, 2016 09:03 Murtaza Peralta MD R2 November 12, 2016 09:03
--- NOTE | 2016-11-12 12:58 | PD.CARD.PN ---
Subjective Subjective Remarks Doing well sitting up in chair without complaints. No further tachycardia. Objective Medications Current Medications Medications (Trade) Dose Ordered Sig/Royce Route Start Time Stop Time Status Last Admin (Morphine Inj) 2 mg Q2H PRN IV 11/08/16 12:00 (Lipitor) 10 mg HS PO 11/08/16 21:00 11/11/16 20:05 (NS Flush) 2 ml UNSCH PRN IV FLUSH 11/08/16 13:00 (NS Flush) 2 ml BID IV FLUSH 11/08/16 21:00 11/11/16 20:06 (Tylenol) 650 mg Q6H PRN PO 11/08/16 13:00 (Protonix Inj) 40 mg DAILY IV 11/09/16 09:00 11/12/16 08:08 (Zofran Inj) 4 mg Q6H PRN IV 11/08/16 13:00 (Colace) 100 mg BID PO 11/08/16 21:00 11/12/16 08:07 (Milk Of [place]isl[place] Liq) 30 ml Q12H PRN PO 11/08/16 13:00 Miscellaneous Information 1 Q361D XX 11/08/16 13:00 (Chlorhexidine 2% Cloth) 3 pack Taper DAILY@04 TOP 11/09/16 04:00 11/05/17 03:59 11/11/16 22:36 Chlorhexidine Gluconate 3 pack 3 pack UNSCH PRN TOP 11/08/16 13:00 (NS 1000 ml Inj) 1,000 ml @ 50 mls/hr Q20H IV 11/08/16 23:45 11/10/16 15:45 Aspirin 81 mg 81 mg DAILY CHEW 11/09/16 09:00 11/12/16 08:06 (Cordarone Inj/ D5W ([place]) Inj) 250 ml @ 0 mls/hr CONTINUOUS IV 11/10/16 11:30 11/11/16 23:28 (Coreg) 6.25 mg Q12HR PO 11/11/16 21:00 11/12/16 08:07 Calcium Carbonate 500 mg 500 mg Q2H PRN CHEW 11/11/16 20:00 (Rocephin Inj/NS Inj) 100 ml @ 200 mls/hr Q24H IV 11/12/16 08:00 11/12/16 08:06 (Heparin Inj) 5,000 units UNSCH PRN IV 11/12/16 13:15 Heparin Sodium (Porcine) 2500 units 2,500 units UNSCH PRN IV 11/12/16 13:15 (Heparin-D5W Inj) 250 ml @ 0 mls/hr TITRATE IV 11/12/16 07:15 11/12/16 08:05 Vital Signs / I&O Vital Signs Date Time Temp Pulse Resp B/P Pulse Ox O2 Delivery O2 Flow Rate FiO2 11/12/16 11:55 98 Nasal Cannula 2.00 11/12/16 08:00 60 11/12/16 08:00 98.5 59 22 132/71 97 11/12/16 07:57 98.5 59 22 132/71 97 11/12/16 06:00 59 11/12/16 05:00 59 96 11/12/16 05:00 59 11/12/16 04:01 98.6 59 131/68 94 11/12/16 04:00 59 94 11/12/16 03:00 59 142/77 95 11/12/16 02:00 60 136/80 96 11/12/16 02:00 60 11/12/16 01:00 59 146/80 95 11/12/16 00:00 60 142/80 94 11/12/16 00:00 98.9 60 142/80 94 11/12/16 00:00 60 11/11/16 22:00 60 11/11/16 21:00 60 33 156/85 95 11/11/16 20:28 97 Nasal Cannula 2.00 11/11/16 20:00 99.3 60 29 159/80 97 11/11/16 20:00 60 I/O 11/11/16 11/11/16 11/11/16 11/12/16 11/12/16 11/12/16 07:00 15:00 23:00 07:00 15:00 23:00 Intake Total 588 ml 736 ml 140 ml Output Total 180 ml 800 ml 700 ml Balance 408 ml -64 ml -560 ml Intake Oral 600 ml IV Total 588 ml 136 ml 140 ml Output Urine Total 180 ml 800 ml 700 ml # Bowel Movements 0 Physical Exam HEENTN: negative Lungs: Clear but deminished at bases. CV: wnl. No gallops or murmurs. Abd: No tenderness. BS wnl Ext: No edema. Normal capillary refill. Neuro: No focal findings. Laboratory Laboratory Tests Test 11/12/16 04:06 White Blood Count 12.9 TH/MM3 Red Blood Count 4.54 MIL/MM3 Hemoglobin 12.9 GM/DL Hematocrit 38.2 % Mean Corpuscular Volume 84.2 FL Mean Corpuscular Hemoglobin 28.4 PG Mean Corpuscular Hemoglobin 33.7 % Concent Red Cell Distribution Width 14.3 % Platelet Count 137 TH/MM3 Mean Platelet Volume 9.7 FL Neutrophils (%) (Auto) 74.2 % Lymphocytes (%) (Auto) 12.3 % Monocytes (%) (Auto) 12.1 % Eosinophils (%) (Auto) 0.9 % Basophils (%) (Auto) 0.5 % Neutrophils # (Auto) 9.5 TH/MM3 Lymphocytes # (Auto) 1.6 TH/MM3 Monocytes # (Auto) 1.6 TH/MM3 Eosinophils # (Auto) 0.1 TH/MM3 Basophils # (Auto) 0.1 TH/MM3 CBC Comment DIFF FINAL Differential Comment Prothrombin Time 20.3 SEC Prothromb Time International 1.8 RATIO Ratio Sodium Level 140 MEQ/L Potassium Level 4.3 MEQ/L Chloride Level 107 MEQ/L Carbon Dioxide Level 25.8 MEQ/L Anion Gap 7 MEQ/L Blood Urea Nitrogen 28 MG/DL Creatinine 1.14 MG/DL Estimat Glomerular Filtration 61 ML/MIN Rate Random Glucose 138 MG/DL Calcium Level 8.3 MG/DL Assessment and Plan Problem List: (1) NSTEMI (non-ST elevated myocardial infarction) (2) Ventricular tachycardia (3) Cardiomyopathy (4) Transaminitis (5) Bradycardia (6) Cardiogenic shock (7) Supratherapeutic INR (8) LILLI (acute kidney injury) (9) Atrial fibrillation Assessment and Plan Patient is stable and asymptomatic from CV perspective. Tachycardia resolved on amioderone. Spoke with Dr. Nur and Dr. oMrris will be doing cath [place]. Spoke with nurse who will keep NPO post 12 MN except for po meds. Once his structural heart disease is defined and treated will need EP evaluation. Problem Qualifiers (1) Atrial fibrillation: Qualified Code: I48.2 - Chronic atrial fibrillation Yancy Vera MD November 12, 2016 12:58
[2016-11-12] MEDS ORDERED: HEPARIN SODIUM - IV 10,000 UNITS/10 ML VIAL IV PRN ×2 (13:15)
[2016-11-12 14:34] LABS: APTT (PATIENT) 40.9 SEC (24.3-30.1)
[2016-11-12] MEDS: ATORVASTATIN 10 MG TAB PO SCH (20:23)
[2016-11-12] MEDS: SODIUM CHLORIDE 0.9% FLUSH 10 ML FLUSH IV FLUSH SCH (20:24)
[2016-11-12] MEDS: VALSARTAN 40 MG TAB PO SCH (20:24)
[2016-11-12] MEDS: CHLORHEXIDINE GLUCONATE 2 % 1 PACK (2 CLOTHS) TOP SCH (20:25)
[2016-11-12 20:36] LABS: APTT (PATIENT) 59.5 SEC (24.3-30.1)
[2016-11-12] MEDS: AMIODARONE INJ 450 MG in D5W (EXCEL BAG) 241 ML IV SCH (21:03)
[2016-11-13] VITALS (27 sets, daily range): BP systolic 130–151; BP diastolic 61–82; PULSE 59–63; RESP 10–39; TEMP 98–99.3; O2SAT 88–98
[2016-11-13] MEDS: HEPARIN-D5W INJ 250 ML IV SCH (00:32)
[2016-11-13 07:11] LABS: APTT (PATIENT) 40.4 SEC (24.3-30.1)
[2016-11-13] MEDS: cefTRIAXone INJ 1,000 MG in SODIUM CHLORIDE 0.9% INJ 100 ML IV SCH (08:42)
[2016-11-13] MEDS: DOCUSATE SODIUM 100 MG CAP PO SCH ×2 (08:42→20:04)
[2016-11-13] MEDS: PANTOPRAZOLE SODIUM 40 MG VIAL IV SCH (08:42)
[2016-11-13] MEDS: ASPIRIN 81 MG CHEW TAB CHEW SCH (08:43)
[2016-11-13] MEDS: CARVEDILOL 3.125 MG TAB PO SCH ×2 (08:43→20:04)
[2016-11-13] MEDS: SODIUM CHLORIDE 0.9% FLUSH 10 ML FLUSH IV FLUSH SCH ×2 (08:45→20:05)
--- NOTE | 2016-11-13 11:13 | HHI.FPPN ---
Subjective Remarks Patient is doing well this morning. He denies chest pain or trouble breathing. He was sitting comfortably in a chair on room air. He would like to be transferred from the ICU to the [facility]. He feels ready for that heart cath procedure this morning scheduled for 11 AM. Objective Vitals Vital Signs Date Time Temp Pulse Resp B/P Pulse Ox O2 Delivery O2 Flow Rate FiO2 11/13/16 08:12 96 21 11/13/16 06:00 60 11/13/16 04:00 98.6 60 10 137/76 96 11/13/16 04:00 60 11/13/16 03:00 60 19 135/74 90 11/13/16 02:00 60 24 151/72 91 11/13/16 02:00 60 11/13/16 01:30 63 30 145/81 95 11/13/16 01:00 61 27 94 11/13/16 00:00 60 11/13/16 00:00 98.2 60 27 132/75 92 11/13/16 00:00 60 27 132/75 92 11/12/16 22:00 60 11/12/16 20:00 60 11/12/16 20:00 98.0 60 24 144/77 100 11/12/16 19:41 96 21 11/12/16 18:30 62 36 11/12/16 18:15 63 29 11/12/16 18:00 64 35 173/79 11/12/16 18:00 60 11/12/16 17:45 83 32 11/12/16 17:30 108 35 11/12/16 17:15 64 32 11/12/16 17:00 60 27 148/72 11/12/16 16:45 61 31 11/12/16 16:30 63 31 11/12/16 16:15 60 32 11/12/16 16:00 60 11/12/16 16:00 98.5 11/12/16 16:00 60 11/12/16 16:00 61 25 154/82 11/12/16 15:01 62 28 171/88 11/12/16 15:00 67 31 11/12/16 15:00 60 11/12/16 14:30 60 33 11/12/16 14:00 60 11/12/16 14:00 60 11/12/16 14:00 60 40 141/73 11/12/16 13:30 60 26 11/12/16 13:17 60 26 140/71 11/12/16 13:15 60 26 201/106 11/12/16 13:13 60 26 240/115 11/12/16 13:12 60 23 231/109 11/12/16 13:11 60 30 244/105 11/12/16 13:09 60 26 235/113 11/12/16 13:00 84 30 11/12/16 13:00 60 11/12/16 12:30 59 26 96 11/12/16 12:00 60 11/12/16 12:00 60 23 127/64 96 11/12/16 11:55 98 Nasal Cannula 2.00 11/12/16 11:30 60 27 95 I/O 11/12/16 11/12/16 11/12/16 11/13/16 11/13/16 11/13/16 07:00 15:00 23:00 07:00 15:00 23:00 Intake Total 140 ml 750 ml 527 ml 190 ml Output Total 700 ml 750 ml 600 ml 550 ml Balance -560 ml 0 ml -73 ml -360 ml Intake Oral 520 ml IV Total 140 ml 230 ml 527 ml 190 ml Output Urine Total 700 ml 750 ml 600 ml 550 ml # Bowel Movements 2 Result Diagram: 11/12/1640511/12/16405 Objective Remarks GENERAL: WN, WD male sitting up in a chair in NAD. Daughter at bedside. Very pleasant. SKIN: Warm and dry. Area of swelling on his left arm from an infiltrated IV HEENT: AT/NC. Pupils equal and round. MMM. NECK: Supple, no JVD. CHEST: Palpable pacemaker left upper chest. HEART: Bradycardic with a regular rhythm. LUNGS: CTAB without wheezes or crackles. ABDOMEN: Soft, NT, ND. EXTREMITIES: No LE edema. NEURO: Awake and alert. PSYCH: Appropriate mood and affect. A/P Assessment and Plan 81-year-old male with history of atrial fibrillation, pacemaker placement, and congestive heart failure. Admitted for NSTEMI and cardiogenic shock. Cardiology, electrophysiology, nephrology, critical care consulted. Currently much improved. Plan for cardiac catheter on 11/[address] Morris, scheduled for 11 AM. Pending findings, electrophysiology may help with management. Discharge Planning Unclear at this time. Pending specialist workup. Cardiac catheterization planned for today 11/13 Seen and examined with Dr. Araujo, PGY 3. Discussed with Dr. Parker Problem List: (1) NSTEMI (non-ST elevated myocardial infarction) Status: Acute Plan: - Cardiology consulted; planning for catheterization today - EPS consulted for further evaluation and management of patient's pacemaker since he had both atrial flutter with RVR vs. ventricular tachycardia on presentation (s/p interrogation) - Heparin drip initiated for NSTEMI - Carvedilol 3.125 mg by mouth every 12 hours - Morphine PRN chest pain - Monitor on telemetry (2) Cardiomyopathy Status: Acute Plan: - BNP elevated at 697 on admission - 2D echo: EF 35-40%, normal wall motion, moderate mitral valve regurgitation, mild tricuspid regurg - See further plans above for NSTEMI History Incidental right pulmonary nodule found that will need to be followed up as an outpatient with a CT scan. (3) UTI (urinary tract infection) Status: Acute Plan: Urine micro-growing Escherichia coli. Pansensitive Ceftriaxone initiated 11/12 - has received 2 doses (4) Atrial fibrillation Status: Acute Plan: Cardiology consulted. - Continue Coreg 6.25 by mouth every 12 hours. - Continue amiodarone drip, per cardiology - Coumadin on hold for cath - Heparin drip as above. (5) LILLI (acute kidney injury) Status: Resolved Plan: Nephrology consulted -Resolved - Avoid nephrotoxic agents - Renally dose medications (6) Transaminitis Status: Acute Plan: Downtrending/improving. Likely secondary to hypoperfusion from cardiogenic shock. -Continue to monitor (7) FEN/PPX Status: Acute Plan: - Fluids: Currently on 50 mL's per hour normal saline. - Electrolytes: WNL. Monitor and replete as needed - Nutrition: Heart healthy diet after procedure today - DVT prophylaxis: Heparin drip initiated as above. - GI prophylaxis: Protonix 40 mg IV daily while in the unit Problem Qualifiers (1) Atrial fibrillation: Qualified Code: I48.2 - Chronic atrial fibrillation Eko,Emani Doty MD R1 November 13, 2016 11:13
[2016-11-13] MEDS ORDERED: IOHEXOL 350 MG/ML 50 ML BTL (for Cath Lab) OTHER ONE (11:36)
[2016-11-13] MEDS ORDERED: HEPARIN-NS/PF INJ 500 ML ONE (11:48)
[2016-11-13] MEDS ORDERED: MIDAZOLAM HCL 2 MG/2 ML VIAL ONE (11:59)
--- NOTE | 2016-11-13 12:42 | CATHPROC ---
Patient Name: SIMIN CASTILLO Study #: [id number] Initial MD: Anuel Quan Date of : 1935 Study Date: 11/13/2016 Cardiac Catheterization Report 11/13/2016 12:41:36 PM Financial #: [id number] 1 of 11 Patient Name: SIMIN CASTILLO Study #: [id number] Initial MD: Anuel Quan Date of : 1935 Study Date: 11/13/2016 Entire Case Report Patient Information SIMIN CONLEY Patient Name Date of 1935 Age 81 years JONATHAN Financial # [id number] Gender M AlternateID Lab Number 4 Accession # Room Number Height (in) 70.0 Height (cm) 177.8 BSA 2.10 Weight (lbs) 203.1 Weight (kg) 92.3 Patient Address/Phone Number Home Address [facility] Home Phone Number [phone] [facility] [address] [facility] [address] Study Information Study Number Scheduled Start Study Start 948-17 11/13/2016 Nov 13 2016 11:36AM Referring Institution Admit Source Facility Department 1 Other [facility] Outside Sales Account Representative Physician and Clinical Staff Initial Anuel Courtney Snuff Grinder Sesar Wheat,RN Recorder Best Mckenzie,RT(R) Scrub Hector Del ToroRT(R) Procedures Performed Procedure Location (Site) Vessel Name Coronary Angiograms LCA Left Coronary Coronary Angiograms RCA Right Coronary L Heart Cath LV Gram-hand inj. LV LV Ventricle 11/13/2016 12:41:36 PM Financial #: [id number] 2 of 11 Patient Name: SIMIN CASTILLO Study #: [id number] Initial MD: Anuel Quan Date of : 1935 Study Date: 11/13/2016 Equipment Time Cementing Machine Operator Description Size Mfg Part Number Used/Scraped TRANSDUCER, TRUWAVE 11:41 HOWELL BOYER * [id number] Used W/STOCKCOCK 12:29 CARDIVA MEDICAL VASCADE, FR5 CLOSURE SYSTEM FR 5 [id number] Used MPIS-502-10.0- INTRODUCER SET, 11:41 [employer]. FR 5 SC-NT-U-SST Used MICROPUNCTURE, STIFFENED *[id number] *[id number] [id number] *[id number] 11:41 MEDLINE INDUSTRIES PACK, CCL CUSTOM * Used *[id number] 11:41 MERIT MED[employer] WIRE, 3MMJ .035 180CM 180CM [id number] Used [id number] 11:41 NAMIC MANIFOLD, 4 PORT * Used *[id number] 11:41 NYCOMED OMNIPAQUE, 350 MG, 100ML 100ML [id number] Used [id number] 11:41 PALMER [employer] BLANKET,WARM AIR CCL * Used *[id number] 11:41 TERUMO MEDICAL SHEATH, FR5 TERUMO (10CM) FR 5 [id number] Used Insurance Information Insurance Payor Medicare, Private Health Insurance Third Constitution Party Third Constitution Party Number [place] MEDICARE BCMCR History: Current Medications Medication Dosage/Unit Route Frequency Last Date/Time Taken ASA LIPITOR CARVEDILOL History: Allergies Allergy Reaction No Known Allergies 11/13/2016 12:41:36 PM Financial #: [id number] Patient Name: SIMIN CASTILLO Study #: [id number] Initial MD: Anuel Quan Date of : 1935 Study Date: 11/14/19 History: Risk Factors Family History of Hypertension Dyslipidemia Previous PR Previous Heart Failure Premature CAD Yes Yes No Yes Yes Prior Valve Prior PCI Prior CABG Surgery No No No Cerebrovascular Peripheral Artery Chronic Lung On Dialysis Diabetes Disease Disease Disease No No No No No History: CV Disease Selection Items Cardiomyopathy nonischemic History: Stress Tests Stress or Imaging Studies Performed No History: Arrhythmias Selection Items Atrial fibrillation History: Other Disease Selection Items HTN History: Other Current Smoker No Labs Hgb (g/dl) Hct (%) RBC (MIL/MM3) WBC (l/cumm) Platelets (thousands) 12.00-18.00 37.00-55.00 4.80-6.20 4.80-10.80 140.00-450.00 16.7 49.9 5.9 16.4 199 Glucose (mg/dl) BUN (mg/dl) Creatinine (mg/dl) BUN:Creatinine (1:x) 60.00-110.00 8.00-20.00 0.10-9.00 10.00-20.00 138 28 1.1 25.5 Na (meq/l) K (meq/l) Cl (meq/l) CO2 (mmol/L) Ca (mg/dl) 138.00-146.00 3.80-5.10 101.00-111.00 23.00-30.00 9.00-10.50 140 4.3 107 25.8 8.3 PT (sec) PTT (sec) INR (PTT:PT) 9.40-11.40 25.10-32.70 0.50-2.00 20.3 40.4 1.8 Troponin I (ng/ml) Troponin T (ng/ml) CPK (u/l) CPK-MB (ng/ML) 0.40-2.30 0.40-2.10 37.00-289.00 0.00-7.00 1.65 2.36 115 4.9 11/13/2016 12:41:36 PM Financial #: [id number] Patient Name: SIMIN CASTILLO Study #: [id number] Initial MD: Anuel Quan Date of : 1935 Study Date: 2016 Medication Medication Total Dose (Bolus/Oral) Medication Total Dosage/Unit 1% XYLOCAINE 20 mL FENTANYL 50 mcg VERSED 2 mg Medications (Bolus/Oral) Medication Time Given Dosage/Unit Administered By Reason VERSED 11/13/2016 12:15:41 PM 2 mg Sesar Wheat 2 mg VERSED given in lab by Sesar Wheat, MOE in Right Forearm via Peripheral IV. FENTANYL 11/13/2016 12:15:56 PM 50 mcg Sesar Wheat 50 mcg FENTANYL given in lab by Sesar Wheat RN in Right Forearm via Peripheral IV. 1% XYLOCAINE 11/13/2016 12:16:10 PM 20 mL Anuel Quan 20 mL 1% XYLOCAINE given in lab by Anuel Quan in Right Groin via Subcutaneous. Medication (Drip) Medication Time Given Dosage/Unit Concentration/Unit Diluent (ml) Solution IV Solutions 11/13/2016 11:36:40 AM 0 mL (IV) 500 NaCl .9 Patient arrived on IV Solutions in Right Forearm via Peripheral IV. Pump/Drip Flow = 20 ml/hr using N aCl .9. 11/13/2016 12:41:36 PM Financial #: [id number] 5 of 11 Patient Name: SIMIN CASTILLO Study #: [id number] Initial MD: Anuel Quan Date of : 1935 Study Date: 11/13/2016 Initial Case Assessment Cardiovascular HR Rhythm NIBP Chest Pain 57 Sinus/Peter 149/82 0 Edema Present Skin color Skin None Normal Warm Dry Circulatory - Right Pulses Dorsalis Pedis Femoral 2 1 Scale (0,1,2,3,4,d) Circulatory - Left Pulses Dorsalis Pedis Femoral 1 1 Scale (0,1,2,3,4,d) Neurological State Oriented to time-place- Alert Moves all extremities person Respiration - General Respiration Rate SpO2 (%) O2 (lpm) (B/min) 25 96 0 11/13/2016 12:41:36 PM Financial #: [id number] Patient Name: SIMIN CASTILLO Study #: [id number] Initial MD: Anuel Quan Date of : 1935 Study Date: 11/13/2016 Final Case Assessment Cardiovascular HR Rhythm NIBP Chest Pain 68 Sinus 137/68 0 Edema Present Skin color Skin None Normal Warm Dry Circulatory - Right Pulses Dorsalis Pedis Femoral 2 1 Scale (0,1,2,3,4,d) Circulatory - Left Pulses Dorsalis Pedis Femoral 1 1 Scale (0,1,2,3,4,d) Neurological State Oriented to time-place- Alert Moves all extremities person Respiration - General Respiration Rate SpO2 (%) O2 (lpm) (B/min) 23 96 0 Vitals Summary Pain Time HR NIBP SpO2 Resp Temp EtCO2 Apnea Poncho Rogers Comment Level 11:51:00 61 149/82 21 10 0 2 11:56:01 61 144/81 95.0 23 10 0 2 12:01:00 60 143/76 95.0 23 10 0 2 12:06:00 59 139/81 97.0 19 10 0 2 12:11:01 66 145/81 98.0 24 10 0 2 12:16:02 61 145/79 98.0 24 10 0 2 12:21:03 60 138/72 95.0 25 10 0 2 12:26:04 59 133/70 96.0 22 10 0 2 12:31:03 59 137/68 95.0 25 10 0 2 12:36:04 60 140/74 96.0 20 10 0 2 11/13/2016 12:41:36 PM Financial #: [id number] Patient Name: SIMIN CASTILLO Study #: [id number] Initial MD: Anuel Quan Date of : 1935 Study Date: 11/13/2016 Poncho Score Summary Time Activity Resp Circ LOC Color Total Score 11:51:00 2 2 2 2 2 10 11:56:01 2 2 2 2 2 10 12:01:00 2 2 2 2 2 10 12:06:00 2 2 2 2 2 10 12:11:01 2 2 2 2 2 10 12:16:02 2 2 2 2 2 10 12:21:03 2 2 2 2 2 10 12:26:04 2 2 2 2 2 10 12:31:03 2 2 2 2 2 10 12:36:04 2 2 2 2 2 10 Poncho Score Definition Table Activity - 0 Activity - 1 Activity - 2 No Movement to Command Weak Hand Grasp Lift Head, Good Hand Grasp Respiration - 0 Respiration - 1 Respiration - 2 Apneic or Obstructed Shallow Breath, Airway Adjunct Deep Breath, Cough Freely Circulation - 0 Circulation - 1 Circulation - 2 B/P > 50% Admission B/P B/P > 20-50% Admission B/P B/P Stable X3 Level of Consciousness - 0 Level of Consciousness - 1 Level of Consciousness - 2 Not Responding Arousable On Calling Awake and Aware Color - 0 Color- 1 Color - 2 Cyanotic Lips, Nailbed, Skin Pale, Dusky [place] Or Normal Chronological Log Time Study Chronological Log 11:36:22 Patient arrived via Bed. 11:36:22 Patient Name, D.O.B, / Armband Verified By R.N. 11:36:23 Consent signed by the physician and the patient and verified by the Outside Sales Account Representative staff. 11:36:24 Pre-op and post- op instructions given; patient acknowledges understanding of instruction s. 11:36:25 Verbal Stimulation=2 Physical Stimulation=2 Airway=2 Respiration=2 TOTAL=8. (0=absent, 1= limited, 2=present) 11:36:30 Presedation assessment performed by Outside Sales Account Representative RN. 11:36:34 Patient has been NPO for Less than 6Hrs. 11:36:34 Skin Breakdown- none per patient. 11:36:36 Patient Warmer Placed on the Table. 11:36:37 Disposable Defibrillator Pads Placed On Patient. 11:36:40 A # 20 IV was noted in the Forearm (left). Grade = 0 11/13/2016 12:41:36 PM Financial #: [id number] Patient Name: SIMIN CASTILLO Study #: [id number] Initial MD: Anuel Quan Date of : 1935 Study Date: 11/13/2016 11:36:40 Patient arrived on IV Solutions in Right Forearm via Peripheral IV. Pump/Drip Flow = 20 ml/ hr using NaCl .9. 11:36:41 History and physical on the chart or being dictated. Assessment: Initial Case, HR=57 BPM, Rhythm=Sinus/Peter, CQHB=525/82 mmhg, Chest Pain=0, Edema= None, Color=Normal, Skin = Warm, Dry Right Pulses: Ton Ped=2, Femoral=1 11:36:43 Left Pulses: Ton Ped=1, Femoral=1 Neurological: State=Alert, Ox3, WEISS Respiration: Resp=25 B/min, SpO2=96 %, O2=0 lpm Vitals capture started with the following parameters, Patient=Adult, Interval=15 min, Initial P aerrnki=401 mmHg, 11:50:22 Deflation Rate=5 mmHg 11:51:00 HR=61 bpm, VSPE=947/82 mmhg, Resp=21 B/min, Pain=0, Poncho=10, Rogers=2 11:54:35 Pressure channel 1 zeroed. 11:55:26 Right groin prepped with 2% chlorhexidine, and with a 3 min. waiting time. 11:56:01 HR=61 bpm, LGCW=621/81 mmhg, SpO2=95.0 %, Resp=23 B/min, Pain=0, Poncho=10, Rogers=2 11:56:33 MD paged 11:58:23 Reference ECG taken 12:01:00 HR=60 bpm, HFSP=485/76 mmhg, SpO2=95.0 %, Resp=23 B/min, Pain=0, Poncho=10, Rogers=2 12:06:00 HR=59 bpm, KJSN=949/81 mmhg, SpO2=97.0 %, Resp=19 B/min, Pain=0, Poncho=10, Rogers=2 12:11:01 HR=66 bpm, LVMA=488/81 mmhg, SpO2=98.0 %, Resp=24 B/min, Pain=0, Poncho=10, Rogers=2 12:13:21 MD arrived. Time Out. Correct patient, correct procedure,correct physician, power injector not loaded with contrast with surgical 12:15:17 team present. Time Out Concurred by MD, individual staff in procedure 12:15:37 Case Start 12:15:41 2 mg VERSED given in lab by Sesar Wheat, MOE in Right Forearm via Peripheral IV. 12:15:56 50 mcg FENTANYL given in lab by Sesar Wheat, MOE in Right Forearm via Peripheral IV. 12:16:02 HR=61 bpm, YISA=380/79 mmhg, SpO2=98.0 %, Resp=24 B/min, Pain=0, Poncho=10, Rogers=2 12:16:06 Case Start 12:16:10 20 mL 1% XYLOCAINE given in lab by Anuel Quan in Right Groin via Subcutaneous. 12:17:38 Access site was Right Femoral Artery. 12:18:03 A SHEATH, FR5 TERUMO (10CM) FR 5 was advanced into the Fem Art (right) using the Percutaneo us technique. 12:18:59 An injection in the Fem Art (right) was made through the SHEATH, FR5 TERUMO (10CM) FR 5. A JR 4.0 INFINITI CATHETER FR 5 was advanced over a wire. OMNIPAQUE, 350 MG, 100ML 100ML was us ed for 12:19:49 injections. 12:21:03 HR=60 bpm, BMZA=610/72 mmhg, SpO2=95.0 %, Resp=25 B/min, Pain=0, Poncho=10, Rogers=2 Recorded Pressure: LV, HR=61, Condition=Condition 1 12:21:19 (Left Ventricle) LV 133/7/16 12:21:33 The LV was manually injected with ~CCS~ cc's and visualized. contrast used. Recorded Pressure: LV, Ao, HR=60, Condition=Condition 1 12:21:34 (Left Ventricle) LV 136/1/14, (Aorta) Ao 140/60/96 12:21:55 The RCA was injected and visualized at various angles. contrast used. 12:22:11 Catheter was removed A JL 4.0 INFINITI CATHETER FR 5 was advanced over a wire. OMNIPAQUE, 350 MG, 100ML 100ML was us ed for 12:22:40 injections. 11/13/2016 12:41:36 PM Financial #: [id number] Patient Name: SIMIN CASTILLO Study #: [id number] Initial MD: Anuel Quan Date of : 1935 Study Date: 11/13/2016 Recorded Pressure: Ao, HR=60, Condition=Condition 1 12:23:39 (Aorta) Ao 135/62/90 12:23:51 Catheter was removed A JL 5.0 INFINITI CATHETER FR 5 was advanced over a wire. OMNIPAQUE, 350 MG, 100ML 100ML was us ed for 12:24:15 injections. Recorded Pressure: Ao, HR=60, Condition=Condition 1 12:25:40 (Aorta) Ao 133/65/91 12:25:54 The LCA was injected and visualized at various angles. OMNIPAQUE, 350 MG, 100ML 100ML used . 12:26:04 HR=59 bpm, YHED=950/70 mmhg, SpO2=96.0 %, Resp=22 B/min, Pain=0, Poncho=10, Rogers=2 12:26:55 Catheter was removed 12:28:12 VASCADE, FR5 CLOSURE SYSTEM FR 5 placement in the Fem Art (right) 12:30:35 Case End Assessment: Final Case, HR=68 BPM, Rhythm=Sinus, KJDS=169/68 mmhg, Chest Pain=0, Edema=None, Color=Normal, Skin = Warm, Dry Right Pulses: Ton Ped=2, Femoral=1 12:30:41 Left Pulses: Ton Ped=1, Femoral=1 Neurological: State=Alert, Ox3, WEISS Respiration: Resp=23 B/min, SpO2=96 %, O2=0 lpm 12:31:03 HR=59 bpm, LKFO=136/68 mmhg, SpO2=95.0 %, Resp=25 B/min, Pain=0, Poncho=10, Rogers=2 12:31:30 No case complications noted. 12:31:37 Cine recording checked. 12:34:22 Bedside Report will be given. 12:35:15 Sterile dressing applied to site 12:36:04 HR=60 bpm, WSCZ=646/74 mmhg, SpO2=96.0 %, Resp=20 B/min, Pain=0, Poncho=10, Rogers=2 12:38:27 Vitals capture stopped. 12:38:42 A Left Heart Cath was performed. 12:41:04 Patient moved to stretcher Recorded Pressures: Condition 1 Time Chamber Pressure Manual Override (*) 12:21:19 LV 133/7/16 s/bd/ed 12:21:34 LV 136/1/14 s/bd/ed 12:21:34 Ao 140/60/96 s/d/m 12:23:39 Ao 135/62/90 s/d/m 12:25:40 Ao 133/65/91 s/d/m End Study - Contrast Media Used In Study Contrast Total Opened (mL) Total Used (mL) Total Wasted (mL) Omnipaque 150 50 100 11/13/2016 12:41:36 PM Financial #: [id number] Patient Name: SIMIN CASTILLO Study #: [id number] Initial MD: Anuel Quan Date of : 1935 Study Date: 11/13/2016 End Study - Maximum Contrast Load Max Contrast Load (mL) 419.6 End Study - Radiation Exposure Fluoro Time (minutes) 4.0 End Study - Patient Disposition Complications Transferred To Interventional Outcome No Telemetry Bed No attempt made 11/13/2016 12:41:36 PM Financial #: [id number]
[2016-11-13] MEDS ORDERED: MISC INFORMATION XX ONE (12:45)
[2016-11-13] MEDS ORDERED: ATROPINE SULFATE 1 MG/ML VIAL IV PRN (12:45)
[2016-11-13] MEDS ORDERED: ONDANSETRON HCL 4 MG/2 ML VIAL IV PRN (12:45)
[2016-11-13] MEDS: AMIODARONE INJ 450 MG in D5W (EXCEL BAG) 241 ML IV SCH (13:40)
--- NOTE | 2016-11-13 15:07 | MA ---
cc: MARTHA BOWNE DATE: 11/13/2016 1935 PROCEDURE PERFORMED 1. Left heart catheterization. 2. Selective right and left coronary angiography. 3. Left ventricular pressure recordings. INDICATION Gta-RB-ezoxhxstc ME/hypotension/VT. DESCRIPTION OF PROCEDURE Consent was signed. The patient was brought into the cardiac laborer petroleum refinery in a fasting state. The right groin was prepped and draped in sterile fashion. Using 1% lidocaine for local anesthesia, a micropuncture kit, a 5-Wolof sheath was inserted into the right common femoral artery. The right common femoral artery angiography was performed to confirm position of the sheath then selective right and left coronary angiography was performed with a JR-4 and JL- 5 diagnostic catheters. Angiography was taken in multiple views. The JR-4 diagnostic catheter was introduced into the left ventricle over a wire. This was followed by pressure recordings and pullback. The patient tolerated the procedure well without complications. Estimated blood loss less than 30 ccs. Total contrast used 50 ccs. The right groin access site was closed with Vascade device. RESULTS LEFT VENTRICLE The left ventricular pressure was 136/1 with an LVEDP of 14. The aortic pressure was 133/65 with a mean of 91. The patient has an echocardiogram this admission showing an EF of 35-40%. ANGIOGRAPHY 1. Right coronary artery. The right coronary artery is a dominant vessel giving off the PDA, has minimal luminal irregularities throughout however, no significant obstructive coronary artery disease. PDA is patent with CLARISSA III flow. 2. Left main is patent with CLARISSA III flow. 3. LAD is a transapical vessel. It has minimal luminal irregularities. No significant obstruction and has CLARISSA III flow. Is giving off one diagonal vessel which is also open with CLARISSA III flow and distal diffuse disease. 4. Left circumflex artery. This is a 4 mm vessel proximally. This vessel is also patent with CLARISSA III flow and nonobstructive coronary artery disease, is giving off two OM branches which are also patent with CLARISSA III flow. CONCLUSION Nonischemic cardiomyopathy. RECOMMENDATIONS Continue medical management for nonischemic cardiomyopathy. The patient has already been seen by EP, Dr. Noel for possible upgrading the pacemaker to an AICD. Martha Bowne MD LABORATORY CHEMIST/TLL /12:37 PM /2:51 PM [email or web address]
[2016-11-13] MEDS: VALSARTAN 40 MG TAB PO SCH (20:04)
[2016-11-13] MEDS: ATORVASTATIN 10 MG TAB PO SCH (20:04)
[2016-11-13] MEDS: CHLORHEXIDINE GLUCONATE 2 % 1 PACK (2 CLOTHS) TOP SCH (20:05)
--- NOTE | 2016-11-13 23:32 | HHI.PR ---
Subjective Remarks feeling ok Objective Vital Signs Date Time Temp Pulse Resp B/P Pulse Ox O2 Delivery O2 Flow Rate FiO2 11/13/16 20:00 61 25 136/61 11/13/16 18:00 61 28 147/78 11/13/16 17:00 59 29 88 11/13/16 16:00 99.3 60 22 141/82 97 11/13/16 15:00 60 23 144/81 97 11/13/16 14:45 59 22 141/76 95 11/13/16 14:30 59 30 136/81 91 11/13/16 14:15 59 28 136/77 96 11/13/16 14:00 60 20 138/76 95 11/13/16 13:45 59 24 149/81 97 11/13/16 13:30 59 14 138/82 98 11/13/16 13:21 60 25 131/76 97 11/13/16 13:15 60 20 95 11/13/16 13:00 60 17 96 11/13/16 11:00 98.0 60 20 130/68 95 11/13/16 10:00 60 39 140/67 95 11/13/16 09:00 60 28 139/73 11/13/16 08:12 96 21 11/13/16 08:01 60 24 142/69 96 11/13/16 08:00 98.0 60 23 94 11/13/16 06:00 60 11/13/16 04:00 98.6 60 10 137/76 96 11/13/16 04:00 60 11/13/16 03:00 60 19 135/74 90 11/13/16 02:00 60 24 151/72 91 11/13/16 02:00 60 11/13/16 01:30 63 30 145/81 95 11/13/16 01:00 61 27 94 11/13/16 00:00 60 11/13/16 00:00 98.2 60 27 132/75 92 11/13/16 00:00 60 27 132/75 92 I/O 11/12/16 11/12/16 11/12/16 11/13/16 11/13/16 11/13/16 07:00 15:00 23:00 07:00 15:00 23:00 Intake Total 140 ml 750 ml 527 ml 190 ml 300 ml 481 ml Output Total 700 ml 750 ml 600 ml 550 ml 300 ml 950 ml Balance -560 ml 0 ml -73 ml -360 ml 0 ml -469 ml Intake Oral 520 ml 340 ml IV Total 140 ml 230 ml 527 ml 190 ml 300 ml 141 ml Output Urine Total 700 ml 750 ml 600 ml 550 ml 300 ml 950 ml # Bowel Movements 2 0 0 Result Diagram: 11/12/1640511/12/16405 Imaging Alert, fully oriented Lungs: ventilated Heart: S1, S2 regular, no gallop Abdomen: soft, no mass Ext: no edema Last Impressions Chest X-Ray 11/08/16930 Signed Impressions: Service Date/Time: Tuesday, November 08, 2016 09:33 - CONCLUSION: 1. Small nodule projects over the right lower lobe. Nonemergent CT chest recommended. 2. Cardiomegaly and left-sided pacemaker. Brandon Martinez MD Renal Ultrasound 11/08/16 0000 Signed Impressions: Service Date/Time: Tuesday, November 08, 2016 17:38 - CONCLUSION: Left renal cyst. No hydronephrosis. Goldy Palacios MD Aorta Ultrasound 11/08/16 0000 Signed Impressions: Service Date/Time: Tuesday, November 08, 2016 11:57 - CONCLUSION: Negative for abdominal aortic aneurysm. The left renal artery is not visualized. Oneil Wu MD FACR Current Medications Medications (Trade) Dose Ordered Sig/Royce Route Start Time Stop Time Status Last Admin (Morphine Inj) 2 mg Q2H PRN IV 11/08/16 12:00 (Lipitor) 10 mg HS PO 11/08/16 21:00 11/13/16 20:04 (NS Flush) 2 ml UNSCH PRN IV FLUSH 11/08/16 13:00 (NS Flush) 2 ml BID IV FLUSH 11/08/16 21:00 11/13/16 20:05 (Tylenol) 650 mg Q6H PRN PO 11/08/16 13:00 (Protonix Inj) 40 mg DAILY IV 11/09/16 09:00 11/13/16 08:42 (Zofran Inj) 4 mg Q6H PRN IV 11/08/16 13:00 (Colace) 100 mg BID PO 11/08/16 21:00 11/13/16 08:42 (Milk Of Magnesia Liq) 30 ml Q12H PRN PO 11/08/16 13:00 Miscellaneous Information 1 Q361D XX 11/08/16 13:00 (Chlorhexidine 2% Cloth) 3 pack Taper DAILY@04 TOP 11/09/16 04:00 11/05/17 03:59 11/12/16 20:25 (Chlorhexidine 2% Cloth) 3 pack UNSCH PRN TOP 11/08/16 13:00 Aspirin 81 mg 81 mg DAILY CHEW 11/09/16 09:00 11/13/16 08:43 (Cordarone Inj/ D5W ([place]) Inj) 250 ml @ 0 mls/hr CONTINUOUS IV 11/10/16 11:30 11/13/16 13:40 (Coreg) 6.25 mg Q12HR PO 11/11/16 21:00 11/13/16 20:04 Calcium Carbonate 500 mg 500 mg Q2H PRN CHEW 11/11/16 20:00 (Rocephin Inj/NS Inj) 100 ml @ 200 mls/hr Q24H IV 11/12/16 08:00 11/13/16 08:42 (Diovan) 40 mg HS PO 11/12/16 21:00 11/13/16 20:04 (Atropine Inj) 0.5 mg UNSCH PRN IV 11/13/16 12:45 (Zofran Inj) 4 mg Q4H PRN IV 11/13/16 12:45 Assessment and Plan Problem List: (1) Cardiac dysrhythmia Status: Acute Plan: In sinus rhythm (2) NSTEMI (non-ST elevated myocardial infarction) Status: Acute Plan: LHC performed today indicated no occlusion. Normal coronary EPS and possible device vs Ablation tomorrow (3) Ventricular tachycardia Status: Acute Plan: Rapid possible ventricular arrhythmia previously recorded Negative LHC for significant occlusion EPS and possible device discussed Patient understand and agree to proceed Emmanuel Noel MD November 13, 2016 23:32
[2016-11-14] VITALS (43 sets, daily range): BP systolic 131–168; BP diastolic 63–76; PULSE 59–68; RESP 16–34; TEMP 98.3–99.2; O2SAT 78–100
[2016-11-14] MEDS: CALCIUM CARBONATE 500 MG CHEWABLE TAB CHEW PRN (00:48)
[2016-11-14] MEDS: AMIODARONE INJ 450 MG in D5W (EXCEL BAG) 241 ML IV SCH (05:21)
[2016-11-14 06:09] LABS: ALKALINE PHOSPHATASE 68 U/L (45-117); ALT (GPT) 53 U/L (12-78); ANION GAP 9 MEQ/L (5-15); AST (GOT) 21 U/L (15-37); BICARBONATE 24.9 MEQ/L (21.0-32.0); BLOOD UREA NITROGEN 23 MG/DL (7-18); CHLORIDE 105 MEQ/L (98-107); GLOMERULAR FILTRATION RATE 62 ML/MIN (>89); POTASSIUM 4.1 MEQ/L (3.5-5.1); SODIUM (NA) 139 MEQ/L (136-145); TOTAL BILIRUBIN ADULT 1.7 MG/DL (0.2-1.0)
--- NOTE | 2016-11-14 08:26 | HHI.FPPN ---
Subjective Remarks Patient seen and examined this morning. AFVSS. He is aware that the cardiac catheterization only showed nonischemic cardiomyopathy. He says that he is getting tired of being in the hospital and wants to go home. He is concerned that the farm implement engine mechanic don't know what caused his arrhythmia. He has several questions about a defibrillator placement, I answered what I could and deferred rest of questions farm implement engine mechanic. Endorses: None Denies: Fever, chills, nausea, vomiting, shortness of breath, chest pain, headache, abdominal pain, calf pain Objective Vitals Vital Signs Date Time Temp Pulse Resp B/P Pulse Ox O2 Delivery O2 Flow Rate FiO2 11/14/16 04:00 60 31 93 11/14/16 00:00 59 26 94 11/13/16 20:00 61 25 136/61 11/13/16 18:00 61 28 147/78 11/13/16 17:00 59 29 88 11/13/16 16:00 99.3 60 22 141/82 97 11/13/16 15:00 60 23 144/81 97 11/13/16 14:45 59 22 141/76 95 11/13/16 14:30 59 30 136/81 91 11/13/16 14:15 59 28 136/77 96 11/13/16 14:00 60 20 138/76 95 11/13/16 13:45 59 24 149/81 97 11/13/16 13:30 59 14 138/82 98 11/13/16 13:21 60 25 131/76 97 11/13/16 13:15 60 20 95 11/13/16 13:00 60 17 96 11/13/16 11:00 98.0 60 20 130/68 95 11/13/16 10:00 60 39 140/67 95 11/13/16 09:00 60 28 139/73 I/O 11/13/16 11/13/16 11/13/16 11/14/16 11/14/16 11/14/16 07:00 15:00 23:00 07:00 15:00 23:00 Intake Total 190 ml 300 ml 481 ml 240 ml Output Total 550 ml 300 ml 950 ml 450 ml Balance -360 ml 0 ml -469 ml -210 ml Intake Oral 340 ml 120 ml IV Total 190 ml 300 ml 141 ml 120 ml Output Urine Total 550 ml 300 ml 950 ml 450 ml # Bowel Movements 0 0 Result Diagram: 11/12/16 0406 11/14/16 0359 Imaging Last Impressions Chest X-Ray 11/08/16 0931 Signed Impressions: Service Date/Time: Tuesday, November 08, 2016 09:33 - CONCLUSION: 1. Small nodule projects over the right lower lobe. Nonemergent CT chest recommended. 2. Cardiomegaly and left-sided pacemaker. Brandon Martinez MD Renal Ultrasound 11/08/16 0000 Signed Impressions: Service Date/Time: Tuesday, November 08, 2016 17:38 - CONCLUSION: Left renal cyst. No hydronephrosis. Goldy Palacios MD Aorta Ultrasound 11/08/16 0000 Signed Impressions: Service Date/Time: Tuesday, November 08, 2016 11:57 - CONCLUSION: Negative for abdominal aortic aneurysm. The left renal artery is not visualized. Oneil Wu MD FACR Objective Remarks GENERAL: WN, WD male sitting up in a chair in [facility]. Daughter at bedside. Very pleasant. SKIN: Warm and dry. Area of swelling on his left arm from an infiltrated IV HEENT: AT/NC. Pupils equal and round. MMM. NECK: Supple, no JVD. CHEST: Palpable pacemaker left upper chest. HEART: Bradycardic with a regular rhythm. LUNGS: CTAB without wheezes or crackles. ABDOMEN: Soft, NT, ND. EXTREMITIES: No LE edema. NEURO: Awake and alert. PSYCH: Appropriate mood and affect. Procedures Cardiac catheterization on 11/14/16 showed nonischemic cardiomyopathy Medications and IVs Current Medications Medications (Trade) Dose Ordered Sig/Royce Route Start Time Stop Time Status Last Admin (Morphine Inj) 2 mg Q2H PRN IV 11/08/16 12:00 (Lipitor) 10 mg HS PO 11/08/16 21:00 11/13/16 20:04 (NS Flush) 2 ml UNSCH PRN IV FLUSH 11/08/16 13:00 (NS Flush) 2 ml BID IV FLUSH 11/08/16 21:00 11/13/16 20:05 (Tylenol) 650 mg Q6H PRN PO 11/08/16 13:00 (Protonix Inj) 40 mg DAILY IV 11/09/16 09:00 11/13/16 08:42 (Zofran Inj) 4 mg Q6H PRN IV 11/08/16 13:00 (Colace) 100 mg BID PO 11/08/16 21:00 11/13/16 08:42 (Milk Of Aislinn Liq) 30 ml Q12H PRN PO 11/08/16 13:00 Miscellaneous Information 1 Q361D XX 11/08/16 13:00 (Chlorhexidine 2% Cloth) Taper DAILY@04 TOP 11/09/16 04:00 11/05/17 03:59 11/12/16 20:25 (Chlorhexidine 2% Cloth) 3 pack UNSCH PRN TOP 11/08/16 13:00 Aspirin 81 mg 81 mg DAILY CHEW 11/09/16 09:00 11/13/16 08:43 (Cordarone Inj/ D5W ([place]) Inj) 250 ml @ 0 mls/hr CONTINUOUS IV 11/10/16 11:30 11/14/16 05:21 (Coreg) 6.25 mg Q12HR PO 11/11/16 21:00 11/13/16 20:04 Calcium Carbonate 500 mg 500 mg Q2H PRN CHEW 11/11/16 20:00 11/14/16 00:48 (Rocephin Inj/NS Inj) 100 ml @ 200 mls/hr Q24H IV 11/12/16 08:00 11/13/16 08:42 (Diovan) 40 mg HS PO 11/12/16 21:00 11/13/16 20:04 (Atropine Inj) 0.5 mg UNSCH PRN IV 11/13/16 12:45 (Zofran Inj) 4 mg Q4H PRN IV 11/13/16 12:45 A/P Assessment and Plan 81-year-old male with history of atrial fibrillation, pacemaker placement, and congestive heart failure. Admitted for NSTEMI and cardiogenic shock. Cardiology, electrophysiology, nephrology, critical care consulted. Currently much improved. Plan for cardiac catheter on 11/[address] Morris, scheduled for 11 AM. Pending findings, electrophysiology may help with management. Discharge Planning Unclear at this time. Pending specialist recommendations. Status post cardiac catheterization Will Discuss with Dr. Parker Problem List: (1) NSTEMI (non-ST elevated myocardial infarction) Status: Acute Plan: - Cardiology consulted; status post cardiac catheterization revealed nonischemic cardiomyopathy - EPS consulted for further evaluation and management of patient's pacemaker since he had both atrial flutter with RVR vs. ventricular tachycardia on presentation (s/p interrogation) - Carvedilol 3.125 mg by mouth every 12 hours - Morphine PRN chest pain - Monitor on telemetry (2) Cardiomyopathy Status: Acute Plan: - BNP elevated at 697 on admission - 2D echo: EF 35-40%, normal wall motion, moderate mitral valve regurgitation, mild tricuspid regurg - See further plans above for NSTEMI History Incidental right pulmonary nodule found that will need to be followed up as an outpatient with a CT scan. (3) UTI (urinary tract infection) Status: Acute Plan: Urine micro-growing Escherichia coli. Pansensitive Ceftriaxone initiated 11/12 - has received 3 doses (4) Atrial fibrillation Status: Acute Plan: Cardiology consulted. - Continue Coreg 6.25 by mouth every 12 hours. - Continue amiodarone drip, per cardiology - Coumadin on hold for cath - Heparin drip as above. (5) LILLI (acute kidney injury) Status: Resolved Plan: Nephrology consulted -Resolved - Avoid nephrotoxic agents - Renally dose medications (6) Transaminitis Status: Acute Plan: Downtrending/improving. Likely secondary to hypoperfusion from cardiogenic shock. -Continue to monitor (7) FEN/PPX Status: Acute Plan: - Fluids: Taking in adequate by mouth - Electrolytes: WNL. Monitor and replete as needed - Nutrition: Heart healthy diet - DVT prophylaxis: Heparin, SCDs - GI prophylaxis: Protonix 40 mg IV daily while in the unit Problem Qualifiers (1) Atrial fibrillation: Qualified Code: I48.2 - Chronic atrial fibrillation Huseyin Jurado MD R2 November 14, 2016 08:26
[2016-11-14] MEDS: ASPIRIN 81 MG CHEW TAB CHEW SCH (09:00)
[2016-11-14] MEDS: CARVEDILOL 3.125 MG TAB PO SCH ×2 (09:00→21:26)
[2016-11-14] MEDS: PANTOPRAZOLE SODIUM 40 MG VIAL IV SCH (09:04)
[2016-11-14] MEDS: cefTRIAXone INJ 1,000 MG in SODIUM CHLORIDE 0.9% INJ 100 ML IV SCH (09:05)
[2016-11-14] MEDS: DOCUSATE SODIUM 100 MG CAP PO SCH ×2 (09:05→21:00)
[2016-11-14] MEDS: SODIUM CHLORIDE 0.9% FLUSH 10 ML FLUSH IV FLUSH SCH ×2 (09:06→21:28)
[2016-11-14] MEDS: HEPARIN SODIUM - SQ 10,000 UNITS/ML VIAL SQ SCH ×2 (14:00→21:27)
[2016-11-14] MEDS: AMIODARONE 200 MG TAB PO SCH (14:56)
[2016-11-14] MEDS: ATORVASTATIN 10 MG TAB PO SCH (21:26)
[2016-11-14] MEDS: VALSARTAN 40 MG TAB PO SCH (21:34)
[2016-11-15] VITALS (27 sets, daily range): BP systolic 123–162; BP diastolic 66–94; PULSE 53–71; RESP 18–20; TEMP 97.6–98.6; O2SAT 95–100
[2016-11-15] MEDS: CHLORHEXIDINE GLUCONATE 2 % 1 PACK (2 CLOTHS) TOP SCH ×2 (02:42→22:08)
[2016-11-15] MEDS: HEPARIN SODIUM - SQ 10,000 UNITS/ML VIAL SQ SCH ×3 (06:00→22:08)
[2016-11-15 06:52] LABS: HEMATOCRIT 35.5 % (39.0-51.0); MEAN CELL VOLUME 82.9 FL (80.0-100.0); MEAN CORPUSCULAR HEMOGLOBIN 28.6 PG (27.0-34.0); MEAN CORPUSCULAR HGB CONC 34.5 % (32.0-36.0); PLATELET COUNT 149 TH/MM3 (150-450); RED BLOOD COUNT 4.28 MIL/MM3 (4.50-5.90); RED CELL DISTRIBUTION WIDTH 14.1 % (11.6-17.2); REVIEW FLAG FINAL; WHITE BLOOD COUNT 9.9 TH/MM3 (4.0-11.0)
[2016-11-15 07:10] LABS: BICARBONATE 25.9 MEQ/L (21.0-32.0); POTASSIUM 4.1 MEQ/L (3.5-5.1)
--- NOTE | 2016-11-15 07:27 | HHI.FPPN ---
Subjective Remarks Patient feels much better this morning especially since he is now in a private room in the [facility] which he described as "the [place]." Patient denies chest pain or shortness of breath today. His major complaint is his left arm which is very painful from an infiltrated IV. He is very glad that he is now on oral amiodarone. Objective Vitals Vital Signs Date Time Temp Pulse Resp B/P Pulse Ox O2 Delivery O2 Flow Rate FiO2 11/15/16 06:00 54 11/15/16 05:00 67 11/15/16 04:19 21 11/15/16 04:09 60 11/15/16 04:00 98.0 60 20 139/83 97 11/15/16 03:10 61 11/15/16 02:20 53 11/15/16 01:05 60 11/15/16 00:00 60 11/15/16 00:00 97.9 60 18 123/66 96 11/14/16 23:00 60 11/14/16 22:00 60 11/14/16 21:00 60 11/14/16 20:30 62 11/14/16 20:30 98.4 63 16 132/75 97 11/14/16 19:58 62 11/14/16 19:58 98.4 63 16 132/75 97 11/14/16 16:12 98.3 61 18 140/76 99 11/14/16 16:00 61 11/14/16 15:15 60 19 100 11/14/16 15:01 60 33 168/72 98 11/14/16 15:00 60 26 99 11/14/16 14:56 60 28 149/72 99 11/14/16 14:45 60 26 99 11/14/16 14:30 60 29 100 11/14/16 14:15 60 18 99 11/14/16 14:00 60 30 142/67 99 11/14/16 13:45 60 27 98 11/14/16 13:39 59 27 134/64 98 11/14/16 13:30 59 24 99 11/14/16 13:15 60 29 99 11/14/16 13:00 60 27 99 11/14/16 12:45 62 28 97 11/14/16 12:30 61 32 96 11/14/16 12:15 60 30 99 11/14/16 12:00 99.0 60 30 99 11/14/16 11:45 60 22 99 11/14/16 11:30 60 26 99 11/14/16 11:15 66 33 11/14/16 11:00 60 28 11/14/16 10:45 60 27 11/14/16 10:30 64 34 11/14/16 10:30 21 11/14/16 10:15 67 33 11/14/16 10:00 68 78 11/14/16 09:45 60 27 98 11/14/16 09:30 59 25 143/63 98 11/14/16 09:15 62 27 98 11/14/16 09:00 60 27 131/64 98 11/14/16 08:45 61 26 93 11/14/16 08:31 60 25 137/69 99 11/14/16 08:30 60 26 96 11/14/16 08:15 60 25 97 11/14/16 08:00 99.2 59 22 150/67 97 I/O 11/14/16 11/14/16 11/14/16 11/15/16 11/15/16 11/15/16 07:00 15:00 23:00 07:00 15:00 23:00 Intake Total 240 ml 320 ml 240 ml Output Total 450 ml 300 ml 100 ml 300 ml Balance -210 ml 20 ml -100 ml -60 ml Intake Oral 120 ml 200 ml 240 ml IV Total 120 ml 120 ml Output Urine Total 450 ml 300 ml 100 ml 300 ml # Voids 1 # Bowel Movements 1 Result Diagram: 11/15/16 0547 11/15/16 0547 Objective Remarks GENERAL: WN, WD male sitting up in a chair in [facility]. Daughter at bedside. Very pleasant. SKIN: Warm and dry. Area of swelling on his left arm from an infiltrated IV, very tender to palpation with a palpable cord HEENT: AT/NC. Pupils equal and round. MMM. NECK: Supple, no JVD. CHEST: Palpable pacemaker left upper chest. HEART: Bradycardic with a regular rhythm. LUNGS: CTAB without wheezes or crackles. ABDOMEN: Soft, NT, ND. EXTREMITIES: No LE edema. NEURO: Awake and alert. PSYCH: Appropriate mood and affect. Procedures Cardiac catheterization on 11/14/16 showed nonischemic cardiomyopathy A/P Assessment and Plan 81-year-old male with history of atrial fibrillation, pacemaker placement, and congestive heart failure. Admitted for NSTEMI and cardiogenic shock. Cardiology, electrophysiology, nephrology, critical care consulted. Currently much improved. Cardiac catheterization was performed on 11/[address] Morris and showed nonischemic cardiomyopathy. Patient is scheduled for EP studies today with AICD placement. Discharge Planning Unclear at this time. Pending cardiology recommendations. Discussed with Dr. Jurado, PGY 2 Problem List: (1) NSTEMI (non-ST elevated myocardial infarction) Status: Acute Plan: - Cardiology consulted; status post cardiac catheterization revealed nonischemic cardiomyopathy - EPS consulted for further evaluation and management of patient's pacemaker since he had both atrial flutter with RVR vs. ventricular tachycardia on presentation (s/p interrogation) - Scheduled for EP study today with possible AICD placement - Carvedilol 3.125 mg by mouth every 12 hours - Morphine PRN chest pain - Monitor on telemetry (2) Cardiomyopathy Status: Acute Plan: - BNP elevated at 697 on admission - 2D echo: EF 35-40%, normal wall motion, moderate mitral valve regurgitation, mild tricuspid regurg - See further plans above for NSTEMI History Incidental right pulmonary nodule found that will need to be followed up as an outpatient with a CT scan. (3) Phlebitis Status: Acute Plan: -Pain and swelling of the left upper extremity with a palpable cord -Ordered venous ultrasound (4) UTI (urinary tract infection) Status: Acute Plan: Urine micro-growing Escherichia coli. Pansensitive Ceftriaxone initiated 11/12 - has received 3 doses (5) Atrial fibrillation Status: Acute Plan: Cardiology consulted. - Continue Coreg 6.25 by mouth every 12 hours. - Amiodarone 200 mg by mouth - Coumadin on hold for cath - Heparin drip as above. (6) FEN/PPX Status: Acute Plan: - Fluids: Taking in adequate by mouth - Electrolytes: WNL. Monitor and replete as needed - Nutrition: Heart healthy diet - DVT prophylaxis: Heparin, SCDs - GI prophylaxis: Protonix 40 mg by mouth daily Problem Qualifiers (1) Atrial fibrillation: Qualified Code: I48.2 - Chronic atrial fibrillation Eko,Emani Doty MD R1 November 15, 2016 07:27
[2016-11-15] MEDS ORDERED: ISOPROTERENOL HCL 1 MG/5 ML AMP ONE (07:35)
[2016-11-15] MEDS ORDERED: MIDAZOLAM HCL 2 MG/2 ML VIAL ONE ×2 (07:36→09:04)
[2016-11-15] MEDS ORDERED: VANCOMYCIN 500 MG VIAL ONE (08:13)
[2016-11-15] MEDS ORDERED: LIDOCAINE HCL 2% 50 ML VIAL ONE (08:14)
[2016-11-15] MEDS ORDERED: VANCOMYCIN HCL 1000 MG VIAL ONE (08:14)
[2016-11-15] MEDS ORDERED: ceFAZolin INJ 1,000 MG VIAL ONE (08:14)
[2016-11-15] MEDS: SODIUM CHLORIDE 0.9% FLUSH 10 ML FLUSH IV FLUSH SCH ×2 (09:00→22:08)
[2016-11-15] MEDS ORDERED: SODIUM CHLOR 0.9% 250 ML INJ 250 ML IV PRN (09:15)
[2016-11-15] MEDS ORDERED: LORazepam 2 MG/ML VIAL IV PRN (09:15)
[2016-11-15] MEDS ORDERED: ONDANSETRON HCL 4 MG/2 ML VIAL IV PRN (09:15)
[2016-11-15] MEDS ORDERED: METOCLOPRAMIDE HCL 10 MG/2 ML VIAL IV PRN (09:15)
[2016-11-15] MEDS ORDERED: BACITRACIN OINT 0.9 GM PKT TOP ONE (09:15)
[2016-11-15] MEDS ORDERED: ATROPINE SULFATE 1 MG/ML VIAL IV PRN (09:15)
[2016-11-15] MEDS ORDERED: LIDOCAINE HCL 1% 50 ML VIAL INFIL PRN (09:15)
[2016-11-15] MEDS ORDERED: oxyCODONE/ACETAMINOPHEN 5 MG/325 MG TAB PO PRN ×2 (09:15)
--- NOTE | 2016-11-15 09:30 | CATHPROC ---
Patient Name: SIMIN CASTILLO Study #: [id number] Initial MD: Emmanuel oNel Date of : 1935 Study Date: 11/15/2016 Cardiac Catheterization Report 11/15/2016 10:00:14 AM Financial #: [id number] 1 of 6 Patient Name: SIMIN CASTILLO Study #: [id number] Initial MD: Emmanuel Noel Date of : 1935 Study Date: 11/15/2016 Entire Case Report Patient Information SIMIN CONLEY Patient Name Date of 1935 Age 81 years JONATHAN Financial # [id number] Gender M AlternateID Lab Number 2 Accession # Room Number Height (in) 72.0 Height (cm) 182.9 BSA 2.17 Weight (lbs) 209.4 Weight (kg) 95.2 Patient Address/Phone Number Home Address [facility] Home Phone Number [phone] [facility] [address] Study Information Study Number Scheduled Start Study Start [id number] 11/15/2016 Nov 15 2016 6:51AM Referring Institution Admit Source Facility Department 1 Other [facility] Physician and Clinical Staff Initial Emmanuel Lee Rack Carrier Josef Rosales,RT(R) Other cathlab, cathlab Recorder Orquidea Nolen,MOE Montoyaub Malina Rivas,BHUMIKA TECH2 Procedures Performed Procedure Location (Site) Vessel Name Lead Insertion Wire insertion Subclav. Vein (Lft Subclavian Vein 11/15/2016 10:00:14 AM Financial #: [id number] 2 of 6 Patient Name: SIMIN CASTILLO Study #: [id number] Initial MD: Emmanuel Noel Date of : 1935 Study Date: 11/15/2016 Equipment Time Printed Circuit Board Pcb Designer Description Size Mfg Part Number Used/Scraped [employer]/ EP LEAD, ENDOTAK RELIANCE G 08:40 64CM 0296 Used PACER 64CM (DEFIB) DERMABOND, ADHESIVE SKIN [id number] 08:21 CORDIS/PACER * Used GLUE MINI *[id number] WIRE, HYDROSTEER 150CM 08:45 DAIG/ST. [employer]EL [employer]ICAL 150CM [id number] Used ANGLED GLIDE [id number] 08:21 MEDLINE INDUSTRIES SUTURE, STRIP PLUS 1/2" * Used *[id number] 08:21 MEDLINE PACER MADRID, LIMB * 2530 Used [id number] 08:21 MEDLINE PACER PACK, PACER CUSTOM * Used *[id number] 08:42 Ecinity PACER SAFE SHEATH, FR9, 13CM FR 9 [id number] Used 08:27 Needle Sponge Count 1 111 Used 08:26 Needle Sponge Count 3 3 Used 08:27 Needle Sponge Count 30 1 Used 09:00 Needle Sponge Count 4 4 Used SUTURE, 0 ETHIBOND [CT1] (CX21D), 8pk SUTURE, 2-0 VICRYL [CT1] ([id number]) SUTURE, 2-0 VICRYL [CT1] ([id number]) SUTURE, 2-0 VICRYL [CT1] (CYO348L) [id number] 08:21 [employer] [place] [employer],WARM AIR CCL * Used *[id number] [facility] PAD, ELECTROSURGICAL 08:21 * [id number] Used SURGICAL GROUNDING ORANGE 08:43 [employer]ONIC SAFE SHEATH, LONG, FR9, 23CM FR 9 [id number] Used 08:21 [employer] JOCELIN. ELECTRODE, PRO-PADZ BIPHASIC * [id number] Used Equipment Model, Serial, Lot Number and Expiration Data Description Model Number Serial Number Lot Number Expiration Date LEAD, ENDOTAK RELIANCE G 64CM 0296 64 cm [id number] 10-02-2018 (DEFIB) SAFE SHEATH, LONG, FR9, 23CM [id number] 06-01-2018 Insurance Information Insurance Payor Medicare Third Constitution Party Third Constitution Party Number BC MEDICARE BCMCR 11/15/2016 10:00:14 AM Financial #: [id number] 3 of 6 Patient Name: SIMIN CASTILLO Study #: [id number] Initial MD: Emmanuel Noel Date of : 1935 Study Date: 11/15/2016 Medication Medication Total Dose (Bolus/Oral) Medication Total Dosage/Unit 2% XYLOCAINE 50 mL Medications (Bolus/Oral) Medication Time Given Dosage/Unit Administered By Reason 2% XYLOCAINE 11/15/2016 8:32:29 AM 50 mL Emmanuel Noel 50 mL 2% XYLOCAINE given in lab by Emmanuel Noel in Left shoulder via Subcutaneous. left upper chest Final Case Assessment Cardiovascular HR Rhythm NIBP Chest Pain 64 PACED 116/70 0 Edema Present Skin color Skin None Normal Warm Dry Circulatory - Right Pulses Dorsalis Pedis 1 Scale (0,1,2,3,4,d) Circulatory - Left Pulses Dorsalis Pedis 1 Scale (0,1,2,3,4,d) Neurological State Oriented to time-place- Alert Moves all extremities person Respiration - General Respiration Rate SpO2 (%) O2 (lpm) (B/min) 18 95 2 Chronological Log Time Study Chronological Log 8:19:15 Initial procedure has been completed. Beginning additional procedure. 8:19:35 2% CHLORHEXIDINE GLUCONATE WASH AND NASAL SWIPE DONE PRIOR TO PROCEDURE. 8:19:43 Left arm and shoulder prepped with 2% chlorhexidine, and with a 3 min. waiting time. 8:21:52 Bovie ground pad applied to: left upper thigh 11/15/2016 10:00:14 AM Financial #: [id number] 4 of 6 Patient Name: SIMIN CASTILLO Study #: [id number] Initial MD: Emmanuel Noel Date of : 1935 Study Date: 11/15/2016 First Sponge And Instrument Count Done by Josef Rosales, RT(R). 8:22:18 Hypo's: 3, Sponges: 30, Bovie/scratch: 1 Sutures: 10, Blades: 1, Instruments: 26, Syveck Patches: 0 Time Out. Correct patient, procedure, procedure equipment, site and side verified with physicia n present. Time 8:31:26 concurred by MD, individual staff and SOFTWARE ENGINEER ADVISOR. Time Out #2 - Consents verified, patient in correct position, all results are labled and displa yed, safety precautions 8:31:29 taken, antibiotics administered. Time out concurred by MD, individual staff and SOFTWARE ENGINEER ADVISOR in procedu re 8:31:47 Case Start 8:32:29 50 mL 2% XYLOCAINE given in lab by Emmanuel Noel in Left shoulder via Subcutaneous. left up per chest 8:33:26 Surgical Incision Made. 8:37:01 A pocket was created at the L Upper Chest. 8:37:55 A device was explanted. 8:39:23 A SAFE SHEATH, FR9, 13CM FR 9 was advanced into the Subclav. Vein (Lft using the Modified S eldinger technique. A SAFE SHEATH, LONG, FR9, 23CM FR 9 was exchanged in the Subclav. Vein (Lft. This was necessary in order to 8:43:42 accomodate a larger catheter. 8:46:26 ACCESS LOST 8:46:50 A WIRE, HYDROSTEER 150CM ANGLED GLIDE 150CM was inserted via Subclav. Vein (Lft. 8:49:49 A LEAD, ENDOTAK RELIANCE G 64CM (DEFIB) 64CM was inserted and positioned in the RV. 8:49:56 Lead placement verified under fluoroscopy 8:49:58 The RV lead impedance and threshold being tested. 8:53:48 OLD RV LEAD EXTRACTED 8:57:19 The RV lead was sutured to the fascia. SECOND Sponge And Instrument Count Done by Josef Rosales RT(R). 8:57:32 Hypo's: 3, Sponges: 30, Bovie/scratch: 1 Sutures: 11, Blades: 1, Instruments: 26, Syveck Patches: 0 VERIFIED BY MALINA Granado 9:00:08 A implantable was connected and placed in the pocket. 9:02:00 The pocket was closed. FINAL Sponge And Instrument Count Done by Josef Rosales RT(R). 9:02:09 Hypo's: 4, Sponges: 30, Bovie/scratch: 1 Sutures: 11, Blades: 1, Instruments: 26, Syveck Patches: ~SYVECK PATCH~ VERIFIED BY MALINA Granado 9:03:23 Case End 9:07:28 Steri-strips and a sterile dressing applied to site. 9:07:29 [facility] called. Spoke to THOMAS 9:08:28 Sterile dressing applied to site 9:08:29 No case complications noted. 9:08:30 Cine recording checked. 9:08:34 Bedside Report will be given. 9:08:35 Implantable Device card placed in patient's chart. 9:08:44 Sheath removed; pressure applied to access site. X10 MIN 11/15/2016 10:00:14 AM Financial #: [id number] 5 of 6 Patient Name: SIMIN CASTILLO Study #: [id number] Initial MD: Emmanuel Noel Date of : 1935 Study Date: 11/15/2016 Assessment: Final Case, HR=64 BPM, Rhythm=PACED, BLMT=651/70 mmhg, Chest Pain=0, Edema=None, Color=Normal, Skin = Warm, Dry Right Pulses: Ton Ped=1 9:17:14 Left Pulses: Ton Ped=1 Neurological: State=Alert, Ox3, WEISS Respiration: Resp=18 B/min, SpO2=95 %, O2=2 lpm 9:28:49 Defibrillator and ground pads removed. Skin intact. 9:29:57 A sling was placed on the affected arm. 9:35:52 Patient moved to stretcher End Study - Contrast Media Used In Study Contrast Total Opened (mL) Total Used (mL) Total Wasted (mL) Unspecified 0 0 0 End Study - Radiation Exposure Fluoro Time (minutes) 5.8 End Study - Patient Disposition Complications Transferred To Interventional Outcome No Telemetry Bed successful 11/15/2016 10:00:14 AM Financial #: [id number]
[2016-11-15] MEDS: cefTRIAXone INJ 1,000 MG in SODIUM CHLORIDE 0.9% INJ 100 ML IV SCH (09:45)
[2016-11-15] MEDS: ASPIRIN 81 MG CHEW TAB CHEW SCH (09:58)
[2016-11-15] MEDS: PANTOPRAZOLE SOD 40 MG DELAYED RELEASE TAB PO SCH (09:59)
[2016-11-15] MEDS: AMIODARONE 200 MG TAB PO SCH (09:59)
[2016-11-15] MEDS: CARVEDILOL 3.125 MG TAB PO SCH ×2 (09:59→21:00)
[2016-11-15] MEDS: DOCUSATE SODIUM 100 MG CAP PO SCH ×2 (09:59→21:00)
[2016-11-15] MEDS ORDERED: DO NOT ADM ANY ANTICOAGULANT DRUGS PRN (10:45)
--- NOTE | 2016-11-15 11:06 | RADRPT ---
EXAM DATE/TIME: 11/15/2016 09:48 [facility] COMPARISON: CHEST SINGLE AP, November 08, 2016, 9:33. INDICATIONS : Evaluate for pneumothorax. MEDICAL HISTORY : Chest pain. SURGICAL HISTORY : None. ENCOUNTER: Subsequent ACUITY: 1 week PAIN SCORE: 0/10 LOCATION: Bilateral chest FINDINGS: A single portable view the chest shows a lingular opacity which obscures the cardiac apex. This is a new finding. Remaining lungs are clear. No effusions. No pneumothorax. A dual-lead pacing device is s een on the left. Leads terminate in the region of the right atrium and right ventricle respectively. The heart is mildly enlarged. Degenerative spine. CONCLUSION: 1. No pneumothorax. 2. Lingular opacity either related to atelectasis or developing infiltrate. 3. Mild cardiomegaly. Karson Loyd Jr., MD on November 15, 2016 at 11:03 Board Certified Radiologist. This report was verified electronically.
[2016-11-15] MEDS: ACETAMINOPHEN 325 MG TAB PO PRN ×2 (16:24→22:07)
[2016-11-15] MEDS: ceFAZolin 2 GM PREMIX 50 ML IV SCH ×2 (16:25→22:08)
--- NOTE | 2016-11-15 17:09 | RADRPT ---
EXAM DATE/TIME: 11/15/2016 15:29 [facility] COMPARISON: No previous studies available for comparison. INDICATIONS : Left arm pain and swelling. MEDICAL HISTORY : Congestive heart failure. Dyspnea. Hypertension. A-fib. SURGICAL HISTORY : Tonsillectomy. Pacemaker. Vasectomy. Left knee arthroscopy. ENCOUNTER: Initial ACUITY: 1 day PAIN SCORE: 2/10 LOCATION: Left arm. FINDINGS: There is thrombus in the cephalic vein. The deep venous system is patent into the axillary vein. García bclavian vein is not visualized due to surgical dressing. CONCLUSION: Thrombus in the cephalic vein. Distal axillary vein and subclavian vein are not visualized. Oneil Wu MD FACR on November 15, 2016 at 17:06 Board Certified Radiologist. This report was verified electronically.
[2016-11-15] MEDS: VALSARTAN 40 MG TAB PO SCH (22:07)
[2016-11-15] MEDS: ATORVASTATIN 10 MG TAB PO SCH (22:07)
[2016-11-15] MEDS: CALCIUM CARBONATE 500 MG CHEWABLE TAB CHEW PRN (23:29)
[2016-11-16] VITALS (22 sets, daily range): BP systolic 124–159; BP diastolic 79–99; PULSE 66–184; RESP 16–19; TEMP 97.8–98; O2SAT 97–99
[2016-11-16 05:16] LABS: ALKALINE PHOSPHATASE 62 U/L (45-117); ALT (GPT) 31 U/L (12-78); ANION GAP 9 MEQ/L (5-15); AST (GOT) 19 U/L (15-37); BLOOD UREA NITROGEN 17 MG/DL (7-18); CHLORIDE 105 MEQ/L (98-107); GLOMERULAR FILTRATION RATE 76 ML/MIN (>89); POTASSIUM 3.9 MEQ/L (3.5-5.1); SODIUM (NA) 140 MEQ/L (136-145)
[2016-11-16] MEDS: ceFAZolin 2 GM PREMIX 50 ML IV SCH (06:29)
[2016-11-16] MEDS: HEPARIN SODIUM - SQ 10,000 UNITS/ML VIAL SQ SCH (06:29)
[2016-11-16] MEDS: cefTRIAXone INJ 1,000 MG in SODIUM CHLORIDE 0.9% INJ 100 ML IV SCH (08:00)
--- NOTE | 2016-11-16 08:02 | HHI.FPPN ---
Subjective Remarks Patient is doing well this morning and wants to go home now that he has causing his new pacemaker/defibrillator device. He is tired of being in the hospital and he requested a change in his diet. Patient denies chest pain or shortness of breath. He wanted to know how soon the sling on his left arm would be removed. Early in the morning he had two runs of V. tach which were resolved by the pacemaker without him receiving a shock from the defibrillator. According to the [employer] AICD interrogator who was at the bedside, the device worked as designed. (Eko,Emani Doty MD R1) Objective Vitals Vital Signs Date Time Temp Pulse Resp B/P Pulse Ox O2 Delivery O2 Flow Rate FiO2 11/16/16 07:01 70 11/16/16 06:00 70 11/16/16 05:40 117 11/16/16 05:08 180 11/16/16 04:06 69 11/16/16 03:52 98.0 66 19 124/79 98 11/16/16 03:52 70 11/16/16 02:10 170 11/16/16 02:03 70 11/16/16 02:00 184 11/16/16 01:00 93 11/16/16 00:00 70 11/15/16 23:00 98.4 67 18 157/94 96 11/15/16 23:00 70 11/15/16 22:00 70 11/15/16 21:02 70 11/15/16 20:30 98.6 70 20 145/82 95 11/15/16 20:30 98.6 70 20 145/82 95 11/15/16 20:30 70 11/15/16 20:09 21 11/15/16 18:10 70 11/15/16 17:31 18 11/15/16 17:13 66 11/15/16 16:34 70 11/15/16 16:34 97.8 70 18 147/92 98 11/15/16 15:37 97.7 70 18 155/90 96 11/15/16 15:37 71 11/15/16 14:02 71 11/15/16 13:32 70 11/15/16 12:57 97.8 70 20 159/88 100 11/15/16 12:46 68 11/15/16 11:54 70 11/15/16 11:54 97.6 70 20 162/87 99 11/15/16 11:50 99 Nasal Cannula 2.00 11/15/16 11:30 97.8 70 18 162/87 100 11/15/16 10:44 70 11/15/16 10:15 97.8 70 18 157/89 99 11/15/16 09:43 97.7 69 18 146/80 98 I/O 11/15/16 11/15/16 11/15/16 11/16/16 11/16/16 11/16/16 07:00 15:00 23:00 07:00 15:00 23:00 Intake Total 240 ml 720 ml 530 ml Output Total 300 ml 550 ml 380 ml Balance -60 ml 170 ml 150 ml Intake Oral 240 ml 720 ml 480 ml IV Total 50 ml Output Urine Total 300 ml 550 ml 380 ml # Voids 2 (Emani Pena MD R1) Result Diagram: 11/15/16 0547 11/16/16 0354 Objective Remarks GENERAL: WN, WD male lying in bed, left arm in a sling, NAD. SKIN: Warm and dry. Could not assess area of swelling in left arm due to arm pain being in a sling HEENT: AT/NC. Pupils equal and round. MMM. NECK: Supple, no JVD. CHEST: Palpable AICD left upper chest. HEART: Regular rate with a regular rhythm. LUNGS: CTAB without wheezes or crackles. ABDOMEN: Soft, NT, ND. EXTREMITIES: No LE edema. NEURO: Awake and alert. PSYCH: Appropriate mood and affect. Procedures Cardiac catheterization on 11/14/16 showed nonischemic cardiomyopathy (Emani Pena MD R1) A/P Assessment and Plan 81-year-old male with history of atrial fibrillation, pacemaker placement, and congestive heart failure. Admitted for NSTEMI and cardiogenic shock. Cardiology, electrophysiology, nephrology, critical care consulted. Currently much improved. Cardiac catheterization was performed on 11/[address] Morris and showed nonischemic cardiomyopathy. Dual pacemaker/defibrillator was successfully placed yesterday. Discharge Planning Unclear at this time. Pending cardiology release, hopefully today Discussed with Dr. Jurado, PGY 2 (Emani Pena MD R1) Attending Attestation Case reviewed and discussed with the resident team. Agree with plan of care as discussed with me and documented in the resident note. (Joshua Kerr MD) Problem List: (1) NSTEMI (non-ST elevated myocardial infarction) Status: Resolved Plan: - Cardiology consulted; status post cardiac catheterization revealed nonischemic cardiomyopathy - EPS consulted for further evaluation and management of patient's pacemaker since he had both atrial flutter with RVR vs. ventricular tachycardia on presentation (s/p interrogation) -Dual pacemaker/defibrillator was placed yesterday - Morphine PRN chest pain - Monitor on telemetry (2) Cardiomyopathy Status: Acute Plan: - BNP elevated at 697 on admission - 2D echo: EF 35-40%, normal wall motion, moderate mitral valve regurgitation, mild tricuspid regurg - See further plans above for NSTEMI History Incidental right pulmonary nodule found that will need to be followed up as an outpatient with a CT scan. (3) Thrombophlebitis Status: Acute Plan: -Pain and swelling of the left upper extremity with a palpable cord -Venous ultrasound showed thrombosis in the cephalic vein which is superficial -Encourage warm compresses (4) UTI (urinary tract infection) Status: Acute Plan: Urine micro-growing Escherichia coli. Pansensitive Ceftriaxone initiated 11/12 - has received 4 doses (5) Atrial fibrillation Status: Acute Plan: Cardiology consulted. - Continue Coreg 6.25 by mouth every 12 hours. - Amiodarone 200 mg by mouth -Restart warfarin today (6) FEN/PPX Status: Acute Plan: - Fluids: Taking in adequate by mouth - Electrolytes: WNL. Monitor and replete as needed - Nutrition: Heart healthy diet - DVT prophylaxis: Heparin, SCDs - GI prophylaxis: Protonix 40 mg by mouth daily (Emani Pena MD R1) Problem Qualifiers (1) Atrial fibrillation: Qualified Code: I48.2 - Chronic atrial fibrillation Emani Pena MD R1 November 16, 2016 08:02 Joshua Kerr MD November 17, 2016 13:10
[2016-11-16] MEDS: DOCUSATE SODIUM 100 MG CAP PO SCH ×2 (08:04→08:07)
[2016-11-16] MEDS: ASPIRIN 81 MG CHEW TAB CHEW SCH (08:04)
[2016-11-16] MEDS: PANTOPRAZOLE SOD 40 MG DELAYED RELEASE TAB PO SCH (08:05)
[2016-11-16] MEDS: AMIODARONE 200 MG TAB PO SCH (08:29)
[2016-11-16] MEDS: CARVEDILOL 3.125 MG TAB PO SCH (08:29)
[2016-11-16] MEDS: SODIUM CHLORIDE 0.9% FLUSH 10 ML FLUSH IV FLUSH SCH (08:29)
--- NOTE | 2016-11-16 10:23 | RADRPT ---
EXAM DATE/TIME: 11/16/2016 09:46 [facility] COMPARISON: No previous studies available for comparison. INDICATIONS : Post pacemaker yesterday. Pre op battery change today. MEDICAL HISTORY : Congestive heart failure. Dyspnea. Hypertension. A-fib. SURGICAL HISTORY : Tonsillectomy. Pacemaker. Vasectomy. Left knee arthroscopy. ENCOUNTER: Subsequent ACUITY: 2 days PAIN SCORE: 5/10 LOCATION: Left chest FINDINGS: The cardiac silhouette is enlarged in transverse diameter. A defibrillator device is in place via a l eft sided approach. The lungs are free of acute parenchymal opacity. No effusions are identified. CONCLUSION: 1. Cardiomegaly. No acute pulmonary disease. Tin Moulton MD on November 16, 2016 at 10:21 Board Certified Radiologist. This report was verified electronically.
--- NOTE | 2016-11-16 14:37 | HHI.PR ---
Subjective Remarks feeling ok Objective Vital Signs Date Time Temp Pulse Resp B/P Pulse Ox O2 Delivery O2 Flow Rate FiO2 11/16/16 14:01 70 11/16/16 13:00 70 11/16/16 12:00 70 11/16/16 11:01 97.9 70 18 144/99 99 11/16/16 11:00 70 11/16/16 10:00 70 11/16/16 09:23 97 21 11/16/16 09:00 70 11/16/16 08:01 97.8 70 16 147/91 97 11/16/16 08:00 70 11/16/16 07:01 70 11/16/16 06:00 70 11/16/16 05:40 117 11/16/16 05:08 180 11/16/16 04:06 69 11/16/16 03:52 98.0 66 19 124/79 98 11/16/16 03:52 70 11/16/16 02:10 170 11/16/16 02:03 70 11/16/16 02:00 184 11/16/16 01:00 93 11/16/16 00:00 70 11/15/16 23:00 98.4 67 18 157/94 96 11/15/16 23:00 70 11/15/16 22:00 70 11/15/16 21:02 70 11/15/16 20:30 98.6 70 20 145/82 95 11/15/16 20:30 98.6 70 20 145/82 95 11/15/16 20:30 70 11/15/16 20:09 21 11/15/16 18:10 70 11/15/16 17:31 18 11/15/16 17:13 66 11/15/16 16:34 70 11/15/16 16:34 97.8 70 18 147/92 98 11/15/16 15:37 97.7 70 18 155/90 96 11/15/16 15:37 71 I/O 11/15/16 11/15/16 11/15/16 11/16/16 11/16/16 11/16/16 07:00 15:00 23:00 07:00 15:00 23:00 Intake Total 240 ml 720 ml 530 ml Output Total 300 ml 550 ml 380 ml Balance -60 ml 170 ml 150 ml Intake Oral 240 ml 720 ml 480 ml IV Total 50 ml Output Urine Total 300 ml 550 ml 380 ml # Voids 2 Result Diagram: 11/15/16 0547 11/16/16 0354 Imaging Alert, fully oriented Lungs: Ventilated Heart: S1, S2 regular Abdomen: soft, no mass Ext: No edema Left infraclavicular area with clean surgical Last Impressions Chest X-Ray 11/16/16 0000 Signed Impressions: Service Date/Time: October 09:46 - CONCLUSION: 1. Cardiomegaly. No acute pulmonary disease. Tin Moulton MD Upper Extremity Ultrasound 11/15/16 0000 Signed Impressions: Service Date/Time: Tuesday, November 15, 2016 15:29 - CONCLUSION: Thrombus in the cephalic vein. Distal axillary vein and subclavian vein are not visualized. Oneil Wu MD FACR Renal Ultrasound 11/08/16 0000 Signed Impressions: Service Date/Time: Tuesday, November 08, 2016 17:38 - CONCLUSION: Left renal cyst. No hydronephrosis. Goldy Palacios MD Aorta Ultrasound 11/08/16 0000 Signed Impressions: Service Date/Time: Tuesday, November 08, 2016 11:57 - CONCLUSION: Negative for abdominal aortic aneurysm. The left renal artery is not visualized. Oneil Wu MD FACR Current Medications Medications (Trade) Dose Ordered Sig/Royce Route Start Time Stop Time Status Last Admin (Morphine Inj) 2 mg Q2H PRN IV 11/08/16 12:00 (Lipitor) 10 mg HS PO 11/08/16 21:00 11/15/16 22:07 (NS Flush) 2 ml UNSCH PRN IV FLUSH 11/08/16 13:00 (NS Flush) 2 ml BID IV FLUSH 11/08/16 21:00 11/16/16 08:29 (Tylenol) 650 mg Q6H PRN PO 11/08/16 13:00 11/15/16 22:07 (Colace) 100 mg BID PO 11/08/16 21:00 11/15/16 09:59 (Milk Of Magnesia Liq) 30 ml Q12H PRN PO 11/08/16 13:00 Miscellaneous Information 1 Q361D XX 11/08/16 13:00 (Chlorhexidine 2% Cloth) Taper DAILY@04 TOP 11/09/16 04:00 11/05/17 03:59 11/15/16 02:42 (Chlorhexidine 2% Cloth) 3 pack UNSCH PRN TOP 11/08/16 13:00 (Aspirin Chew) 81 mg DAILY CHEW 11/09/16 09:00 11/16/16 08:04 (Coreg) 6.25 mg Q12HR PO 11/11/16 21:00 11/16/16 08:29 Calcium Carbonate 500 mg 500 mg Q2H PRN CHEW 11/11/16 20:00 11/15/16 23:29 (Rocephin Inj/NS Inj) 100 ml @ 200 mls/hr Q24H IV 11/12/16 08:00 11/16/16 08:00 (Diovan) 40 mg HS PO 11/12/16 21:00 11/15/16 22:07 (Atropine Inj) 0.5 mg UNSCH PRN IV 11/13/16 12:45 (Heparin Inj) 5,000 units Q8HR SQ 11/14/16 14:00 11/16/16 06:29 (Cordarone) 200 mg DAILY PO 11/14/16 14:45 11/16/16 08:29 (Protonix) 40 mg DAILY PO 11/15/16 09:00 11/16/16 08:05 (Percocet 5-325 Mg) 1 tab Q4H PRN PO 11/15/16 09:15 (Percocet 5-325 Mg) 2 tab Q4H PRN PO 11/15/16 09:15 (Atropine Inj) 0.5 mg UNSCH PRN IV 11/15/16 09:15 (Reglan Inj) 10 mg Q4H PRN IV 11/15/16 09:15 (Zofran Inj) 4 mg Q4H PRN IV 11/15/16 09:15 Assessment and Plan Problem List: (1) Cardiac dysrhythmia Status: Acute Plan: Doing well VT treated by [facility] last night (2) NSTEMI (non-ST elevated myocardial infarction) Status: Resolved Plan: No chest pain reported (3) Ventricular tachycardia Status: Acute Plan: SP ICD/ Doing well. Ok to Follow up in 3 weeks. Emmanuel Noel MD November 16, 2016 14:37
--- NOTE | 2016-11-16 14:54 | HHI.DCPOC ---
Discharge Care Plan Diagnosis: (1) Atrial fibrillation (2) Elevated troponin (3) Cardiomyopathy (4) Ventricular tachycardia (5) UTI (urinary tract infection) (6) LILLI (acute kidney injury) (7) Cardiac dysrhythmia (8) Thrombophlebitis (9) NSTEMI (non-ST elevated myocardial infarction) Goals to Promote Your Health * To prevent worsening of your condition and complications please take your medications as prescribed with current changes * To maintain your health at the optimal level, follow up with your PCP and retail event and sales assistant Directions to Meet Your Goals Take your medications as prescribed Follow your dietary instruction Follow activity as directed Keep your appointments as scheduled Take your immunizations and boosters as scheduled If your symptoms worsen call your PCP, if no PCP go to Urgent Care Center or Emergency Room Smoking is Dangerous to Your Health. Avoid second hand smoke Call the 24-hour hour crisis hotline for domestic abuse at Emani Pena MD R1 November 16, 2016 14:54
[2016-11-16] MEDS ORDERED: MECL-62 PO (15:01)
[2016-11-16] MEDS ORDERED: FURO1TAB60 PO (15:01)
[2016-11-16] MEDS ORDERED: AMIO200T PO (15:01)
[2016-11-16] MEDS ORDERED: DIOV40TA PO (15:01)
[2016-11-16] MEDS ORDERED: CEPH-460 PO (15:01)
[2016-11-16] MEDS ORDERED: DOCU1CAP39 PO (15:01)
[2016-11-16] MEDS ORDERED: ACET325T PO (15:01)
--- NOTE | 2016-11-16 22:04 | HHI.DS ---
Discharge Summary Admission Date November 08, 2016 at 11:03 Discharge Date: November 16, 2016 Admitting Diagnosis dysrhythmia/acute renal failure/elevated troponin (1) NSTEMI (non-ST elevated myocardial infarction) Diagnosis: Principal (2) Cardiomyopathy Diagnosis: Principal (3) Thrombophlebitis Diagnosis: Principal (4) UTI (urinary tract infection) Diagnosis: Principal (5) Atrial fibrillation Diagnosis: Principal Procedures Cardiac catheterization on 11/14/16 showed nonischemic cardiomyopathy Brief History 81-year-old male patient with history of atrial fibrillation and congestive heart failure, originally from [place], presents with a 2 day history of chest , upper epigastric "tightness." He states it all started 2 days ago. He thinks at the time he may have had food poisoning, but he can't think of anything which caused it. At the time, he had multiple episodes of diarrhea 8 , nonbloody. Diffuse, persistent sweaty episodes "like crazy". His shirt would be soaked with sweat, but he sheets at night are not soaked. He denied any vomiting episodes, but dry heaved. He normally is able to walk miles and sleep flat. But the last 2 nights he has had to sleep upright in a chair. He is taking his water pill, but he has not made urine frequently. The last time he urinated was this morning at 3 AM. His chest, upper epigastric "tightness", this started 2 days ago. It is right below the ribs and describes it as "bloating." It is discomforting but not painful. Discomforting 6 out of 10. It is constant and does not really go away. But he also is "not sure how to answer that question." He denies fevers at home. Denies cough. No sick contacts. [place] as though he was given a faint over the last 2 nights. But no syncope. CBC/BMP: 11/15/16 0547 11/16/16 0354 Significant Findings Laboratory Tests Test 11/14/16 11/15/16 11/16/16 03:59 05:47 03:54 Blood Urea Nitrogen 23 MG/DL (7-18) Estimat Glomerular Filtration 62 ML/MIN (>89) 76 ML/MIN (>89) 76 ML/MIN (>89) Rate Random Glucose 143 MG/DL 117 MG/DL 145 MG/DL (74-106) (74-106) (74-106) Calcium Level 8.1 MG/DL 8.2 MG/DL 7.9 MG/DL (8.5-10.1) (8.5-10.1) (8.5-10.1) Total Bilirubin 1.7 MG/DL (0.2-1.0) Total Protein 5.8 GM/DL 5.7 GM/DL (6.4-8.2) (6.4-8.2) Albumin 2.6 GM/DL 2.4 GM/DL (3.4-5.0) (3.4-5.0) Red Blood Count 4.28 MIL/MM3 (4.50-5.90) Hemoglobin 12.2 GM/DL (13.0-17.0) Hematocrit 35.5 % (39.0-51.0) Platelet Count 149 TH/MM3 (150-450) Imaging Last 72 hours Impressions Chest X-Ray 11/16/16 0000 Signed Impressions: Service Date/Time: October 09:46 - CONCLUSION: 1. Cardiomegaly. No acute pulmonary disease. Tin Moulton MD PE at Discharge GENERAL: WN, WD male lying in bed, left arm in a sling, NAD. SKIN: Warm and dry. Could not assess area of swelling in left arm due to arm pain being in a sling HEENT: AT/NC. Pupils equal and round. MMM. NECK: Supple, no JVD. CHEST: Palpable AICD left upper chest. HEART: Regular rate with a regular rhythm. LUNGS: CTAB without wheezes or crackles. ABDOMEN: Soft, NT, ND. EXTREMITIES: No LE edema. NEURO: Awake and alert. PSYCH: Appropriate mood and affect. Hospital Course 81-year-old male with history of atrial fibrillation, pacemaker placement, and congestive heart failure. He was admitted for NSTEMI, ventricular tachycardia, and cardiogenic shock. He was also found to have a UTI during this admission. Cardiology, electrophysiology, nephrology, critical care were consulted to help manage his care. Amiodarone IV was started for control of his dysrhythmia. Cardiac catheterization was performed on 11/[address] Morris and showed nonischemic cardiomyopathy. A dual pacemaker/defibrillator was successfully placed on November 15. Currently the patient is doing well clinically and back to his baseline. He was discharged home with amiodarone by mouth and a short course of Keflex. His valsartan was increased to 80 mg by mouth at bedtime. Please see his discharge medication documentation for more information on medication changes during this admission. Pt Condition on Discharge: Stable Discharge Disposition: Discharge Home Discharge Instructions DIET: Follow Instructions for: Heart Healthy Diet Activities you can perform: Regular-No Restrictions Follow up Referrals: Cardiology - 1 Week with Emmanuel Noel MD PCP Follow-up - 1 Week New Medications: Cephalexin (Keflex) 500 Mg Cap 500 MG PO Q8H Infection #6 Ref 0 CAP Furosemide (Lasix) 40 Mg Tab 40 MG PO DAILY #30 Ref 0 TAB Meclizine (Meclizine) 25 Mg Tab 25 MG PO TID PRN VERTIGO #60 Ref 0 TAB Acetaminophen (Acetaminophen) 325 Mg Tab 650 MG PO Q6H PRN PAIN 1-10 AND/OR FEVER >101F #30 TAB Amiodarone (Amiodarone) 200 Mg Tab 200 MG PO DAILY #30 TAB Docusate Sodium (Dok) 100 Mg Cap 100 MG PO BID #30 CAP Valsartan (Diovan) 40 Mg Tab 80 MG PO HS #30 TAB Continued Medications: Aspirin (Aspirin) 81 Mg Tabdr 81 MG PO DAILY TAB Atorvastatin (Atorvastatin) 10 Mg Tab 10 MG PO HS Cholesterol Management #30 Ref 0 TAB Warfarin (Coumadin) 3 Mg Tab 3 MG PO SUNDAY Prevent Blood Clot #30 Ref 0 TAB Warfarin (Coumadin) 4 Mg Tab 4 MG PO [id number] Prevent Blood Clot #30 Ref 0 TAB Discontinued Medications: Carvedilol (Carvedilol) 25 Mg Tab 25 MG PO BID #60 Ref 0 TAB Furosemide (Furosemide) 40 Mg Tab 40 MG PO BID #60 Ref 0 TAB Meclizine HCl (Meclizine 25) 25 Mg Tab 25 MG PO TID dizziness Eko,Emani Doty MD R1 November 16, 2016 22:04
--- NOTE | 2016-11-17 22:07 | EKG ---
Date Performed: 11/16/2016 Time Performed: 05:39:50 PTAGE: 81 years EKG: Ventricular pacing Pacemaker rhythm - no further analysis Abnormal ECG PREVIOUS TRACING : 11/10/2016 10.40 DOCTOR: Tomasz Anders Interpretating Date/Time 11/17/2016 22:06:19
--- NOTE | 2016-11-20 11:00 | MA ---
cc: KARY SOTELO M.D. DATE: 11/15/2016 PROCEDURE Electrophysiology study and CS cannulation. INDICATION Mr. Agudelo is an 81-year-old gentleman admitted due to possible ventricular tachyarrhythmia. Left heart catheterization was performed during hospitalization and indicated no significant occlusion. Ejection fraction is around 35%. He is to undergo electrophysiology study. The risks, the nature and the benefit of the procedure were clearly stated to him. The risks include pneumothorax, cardiac perforation, stroke and even . He understood and agreed to proceed. DETAILS OF PROCEDURE After written informed consent was obtained, the patient was brought to the EP lab where he was prepped and draped in the usual sterile fashion. Conscious sedation was initiated and maintained throughout the procedure by the anesthesiologist. Once sedation was verified, the right inguinal area was anesthetized with 2% Xylocaine. Using modified Seldinger technique, the right femoral vein was cannulated on four occasions and four guidewires were advanced. Over the wires three 5 and a 6 Lao Hemaquet were advanced. Then under fluoroscopic guidance through the 5 and 6 Lao Hemaquets, four 5 [place] David curved quadripolar electrophysiology catheters were advanced and positioned on the His, upper right atrium, coronary sinus and right ventricular apex. The permanent pacemaker was reprogrammed to VVI 40 and basic interval was measured. HV was apparently prolonged. Then atrial pacing protocol was performed. No tachyarrhythmia was induced. Atrial pacing protocol consisted of incremental atrial pacing as well as programmed stimulation with 110 cycle length and up to one extrastimuli delivered. Then ventricular pacing protocol was performed. Ventricular pacing protocol consists of incremental ventricular pacing as well as programmed stimulation with 110 cycle length and up to one extrastimuli delivered. During ventricular pacing protocol ventricular tachycardia was induced. It was pace terminated. At that point the procedure was complete. All catheters were removed. The patient is going to be kept on the table. The permanent pacemaker will be upgraded to a dual-chamber defibrillator. The patient tolerated the procedure. Blood loss minimal. FINDINGS 1. Electrocardiogram: At baseline the patient was in sinus. Post procedure electrocardiogram was unchanged. 2. Basic interval: Basic cycle length was around 840 milliseconds. HV was around 66 milliseconds. 3. Atrial pacing protocol: No tachyarrhythmia was induced. 4. Ventricular pacing protocol: There was no VA conduction. Dring ventricular pacing protocol ventricular tachycardia was induced. CONCLUSION Positive electrophysiology study for ventricular tachyarrhythmia. COMMENT/RECOMMENDATION The patient is going to be kept on the table and the dual-chamber permanent pacemaker will be upgraded to a dual-chamber defibrillator. Kary Sotelo MD HS/BT /10:03 AM /10:51 AM
--- NOTE | 2016-11-21 10:20 | MP ---
cc: DOROTHY ZAMBRANO M.D., HANSCY M.D. DATE OF SURGERY: 11/15/2016 PROCEDURE 1. Permanent pacemaker removal. 2. Right ventricular lead extraction. 3. Dual-chamber defibrillator insertion with new defibrillatory lead. INDICATION Mr. Agudelo is an 81-year-old gentleman with ventricular tachycardia, ejection around 35%, to undergo defibrillator implantation for sudden secondary prevention. Ventricular tachycardia was induced during electrophysiology study and also was recorded in the previous permanent pacemaker. The risks, the nature and the benefit of the procedure were clearly stated to him. The risks include pneumothorax, cardiac perforation, stroke and even . He understood and agreed to proceed. This is nonischemic. DETAILS OF PROCEDURE As written informed consent was obtained prior to electrophysiology study, the patient was kept on the table where he was prepped and draped in the usual sterile fashion. Conscious sedation was initiated and maintained throughout the procedure by the anesthesiologist. Once sedation was verified, the left infraclavicular area over the generator was anesthetized with 2% Xylocaine. Using a #11 scalpel, a 3 cm incision was made over the existing generator. Dissection was then taken down to the fascial layer using Bovie cautery and blunt dissection. Once exposed, the generator was removed from the pocket. Scar tissue was removed from around the lead. The pocket was expanded, pocket revision was performed. Then using modified Seldinger technique, I did attempt to cannulate the left subclavian vein. I could not advance the guidewire. I did exchange the guidewire for a Glidewire. After multiple manipulations I was able to cross all the way to the inferior vena cava. Then I predilated the area. A 2-0 Vicryl suture was placed around the wire to prevent back bleeding. Then over the wire a 9-[place] dilator and introducer was advanced. As the dilator and wire were removed, an active fixation right ventricular pacing and sensing defibrillatory lead was advanced. After adequate pacing and sensing thresholds were obtained, the lead was secured in the pocket using 2-0 Ethibond suture. At that point the pocket was copiously irrigated using antibiotic solution. The leads were disconnected from the generator. The RA lead was connected to the new defibrillator generator as well as a new right ventricular defibrillatory lead. I decided to proceed with lead extraction of the RV defibrillatory lead. Scar tissue was removed around the lead. stylet was advanced over the lead and I unscrewed the lead. After multiple gentle traction the lead was dislodged without difficulty. 2-0 Vicryl suture was placed at the exit point to prevent bleeding. Then the leads and the defibrillator generator was placed into the pocket. At that point I decided not to proceed with device testing. The patient was on the table for long. I decided to proceed with wound closure. The fascial layer was approximated using 2-0 Vicryl suture in a continuous fashion. The subcutaneous layer was approximated using 2-0 Vicryl suture in a continuous fashion. The subcuticular layer was approximated using 2-0 Vicryl suture in a continuous fashion. Dermabond adhesive was applied to the wound followed by a sterile pressure dressing. There was no complication. The patient tolerated the procedure. Blood loss minimal. EXPLANTED HARDWARE The explanted permanent pacemaker is a [employer] model L301, serial number [id number]. The explanted right ventricular pacing and sensing lead is a [employer] serial number [id number]. IMPLANTED HARDWARE The implanted defibrillator generator is a [employer] model D022, serial number [id number]. The right ventricular pacing and sensing defibrillatory lead is a [employer] model 0296, serial number [id number]. THRESHOLDS The right atrial pacing threshold in the bipolar mode cannot be measured. The patient is in atrial fibrillation. Lead impedance 470 ohms. V-wave at 3 millivolts. The right ventricular pacing threshold in the bipolar mode was 1.7 volts at 0.4 milliseconds. Lead impedance 335 ohms. R-wave at 5.8 millivolts. SETTINGS The device is set in a VVI 60, upper limit 120 beats per minute. Defibrillatory portion is for two zones. One zone for ventricular tachycardia between 160 and 240 beats per minute. Initial therapy consists of one burst of ATP, one RAMP, 81%, 10 pause, 10 millisecond decremental, followed by 21 then 31 and all subsequent shocks at 41 defibrillatory shock. The second zone is for ventricular fibrillation above 240 beats per minute. The first therapy at 31 and all subsequent shocks at 41 joules defibrillatory shock. CONCLUSIONS Successful permanent pacemaker removal, right ventricular lead extraction and dual-chamber defibrillator insertion. COMMENT/RECOMMENDATION The patient is going to be transferred to the telemetry unit. He will be observed and if stable can be discharged home in the morning. Emmanuel Noel MD HS/BT /10:07 AM /10:02 AM
== END 2016-11-16 16:45 | disposition home or self-care (01) | DRG 222 ==
LOC: NEPC 09:10 → NEDA 11:03 → HIME 17:15 → HCIN 11-14 17:39
PROVIDERS: ADMIT Family Medicine; ATTEND Family Medicine
PROC: 4B02XSZ Measurement of Cardiac Pacemaker, External Approach (ICD-10-PCS; 2016-11-09)
PROC: 4A023N7 Measurement of Cardiac Sampling and Pressure, Left Heart, Percutaneous Approach (ICD-10-PCS; 2016-11-13)
PROC: B2111ZZ Fluoroscopy of Multiple Coronary Arteries using Low Osmolar Contrast (ICD-10-PCS; 2016-11-13)
PROC: B41F1ZZ Fluoroscopy of Right Lower Extremity Arteries using Low Osmolar Contrast (ICD-10-PCS; 2016-11-13)
PROC: 0JH608Z Insertion of Defibrillator Generator into Chest Subcutaneous Tissue and Fascia, Open Approach (ICD-10-PCS; 2016-11-15)
PROC: 02PA3MZ Removal of Cardiac Lead from Heart, Percutaneous Approach (ICD-10-PCS; 2016-11-15)
PROC: 0JPT0PZ Removal of Cardiac Rhythm Related Device from Trunk Subcutaneous Tissue and Fascia, Open Approach (ICD-10-PCS; 2016-11-15)
PROC: 02HK3KZ Insertion of Defibrillator Lead into Right Ventricle, Percutaneous Approach (ICD-10-PCS; principal; 2016-11-15 07:30)
DX: I21.4 Non-ST elevation (NSTEMI) myocardial infarction (principal); R57.0 Cardiogenic shock; N17.9 Acute kidney failure, unspecified; I47.2 Ventricular tachycardia; I48.1 Persistent atrial fibrillation; I48.92 Unspecified atrial flutter; I42.9 Cardiomyopathy, unspecified; I82.612 Acute embolism and thrombosis of superficial veins of left upper extremity; N39.0 Urinary tract infection, site not specified; Z95.0 Presence of cardiac pacemaker; I50.9 Heart failure, unspecified; E78.5 Hyperlipidemia, unspecified; Z79.01 Long term (current) use of anticoagulants; R79.1 Abnormal coagulation profile; R74.0 Nonspecific elevation of levels of transaminase and lactic acid dehydrogenase [LDH]; R91.1 Solitary pulmonary nodule; I08.1 Rheumatic disorders of both mitral and tricuspid valves; I25.10 Atherosclerotic heart disease of native coronary artery without angina pectoris; B96.20 Unspecified Escherichia coli [E. coli] as the cause of diseases classified elsewhere; R00.1 Bradycardia, unspecified
CPT/HCPCS: 33208; 33249; 36600; 71010; 71020; 76775; 76937; 80048; 80053; 80076; 81001; 82306; 82550; 82552; 82805; 83605; 83690; 83735; 83880; 84100; 84484; 85025; 85027; 85610; 85730; 86850; 86900; 86901; 87040; 87077; 87086; 87186; 87641; 93005; 93306; 93454; 93623; 93971; 96360; C1721; C1730; C1760; C1769; C1893; C1895; C9113; G0269; J0282; J0690; J0696; J1644; J2250; J3010; J3370; J7030; J7040; J7060; Q9967